=== PATIENT | male | born 1985 | race Caucasian/White ===

== ENCOUNTER 2016-05-28 05:44 | Inpatient (IN) | payer MEDICAID ==
[~2016-05-28] VITALS: Ht 170.2 cm; Wt 57.0 kg
[~2016-05-28 05:44] MED LIST: FER325 PO; GABA100C14 PO; INSU100C SC; LANT3I SC; LEVO500T10 PO; NOVO7030 SC
[2016-05-28 05:47] VITALS: Ht 170.2 cm; Wt 57.0 kg
[2016-05-28] MEDS ORDERED: SOD CHLORIDE 0.9% 1,000 ML IV STA (06:21)
[2016-05-28] MEDS ORDERED: morphine 4 MG/ML VIAL IV STA ×2 (06:21→08:04)
[2016-05-28] MEDS ORDERED: ONDANSETRON 4 MG INJ IV STA (06:21)
[2016-05-28] MEDS ORDERED: SOD CHLORIDE 0.9% 1,000 ML IV ONE (06:30)
[2016-05-28 06:42] LABS: INR 0.91; PROTIME 12.2 Sec (12.2-14.2)
[2016-05-28 06:43] LABS: ALBUMIN 4.5 g/dl (3.3-4.9); CHLORIDE 97 mmol/L (97-110)
[2016-05-28 06:44] LABS: POTASSIUM 4.3 mmol/L (3.5-5.1); SODIUM 139 mmol/L (135-144)
[2016-05-28 06:46] LABS: ALBUMIN/GLOBULIN RATIO 1.55; ALKALINE PHOSPHATASE 101 IU/L (42-121); ANION GAP 20 (8-16); ASPARTATE AMINO TRANSFERASE 21 IU/L (15-46); BASOPHIL # 0.1 10^3/ul (0.0-0.1); BASOPHILS % 0.4 % (0.0-2.0); BILIRUBIN,INDIRECT 0.2 mg/dl (0-1.1); BILIRUBIN,TOTAL 0.2 mg/dl (0.2-1.3); CARBON DIOXIDE 26 mmol/L (21-31); CREATININE 0.97 mg/dl (0.61-1.24); EOSINOPHILS # 0.5 10^3/ul (0.0-0.5); EOSINOPHILS % 3.2 % (0.0-7.0); HEMATOCRIT 35.4 % (42.0-52.0); LYMPHOCYTES # 2.5 10^3/ul (0.8-2.9); LYMPHOCYTES % 15.3 % (15.0-51.0); MEAN CORPUSCULAR HEMOGLOBIN 31.2 pg (29.0-33.0); MEAN CORPUSCULAR HGB CONC 33.8 g/dl (32.0-37.0); MEAN CORPUSCULAR VOLUME 92.3 fl (82.0-101.0); MEAN PLATELET VOLUME 9.2 fl (7.4-10.4); MONOCYTE # 0.9 10^3/ul (0.3-0.9); MONOCYTES % 5.6 % (0.0-11.0); NEUTROPHIL # 12.4 10^3/ul (1.6-7.5); NEUTROPHILS % 75.5 % (39.0-77.0); PLATELET COUNT 192 10^3/UL (140-440); RED BLOOD COUNT 3.84 10^6/ul (4.70-6.10); RED CELL DISTRIBUTION WIDTH 13.4 % (11.5-14.5); TOTAL PROTEIN 7.4 g/dl (6.1-8.1); UNCORRECTED WBC 16.5 10^3/ul (4.8-10.8); WHITE BLOOD COUNT 16.5 10^3/ul (4.8-10.8)
[2016-05-28 06:47] LABS: ALANINE AMINOTRANSFERASE 33 IU/L (13-69); BLOOD UREA NITROGEN 29 mg/dl (7-20); CALCIUM 9.8 mg/dl (8.4-10.2); GLUCOSE 379 mg/dl (70-220)
[2016-05-28 07:01] LABS: TROPONIN-I < 0.012 ng/ml (0.00-0.12)
[2016-05-28 07:07] LABS: CONDITION 1
--- NOTE | 2016-05-28 07:17 | RADRPT ---
PROCEDURE: CT of the abdomen and pelvis without contrast CLINICAL INDICATION: Abdominal Pain. TECHNIQUE: Spiral CT images through the abdomen and pelvis without the use of contrast. The admin istered radiation dose is CTDI 4.91 and DLP 296.54. One or more of the following dose reduction juan c hniques were used: automated exposure control, adjustment of the mA and/or kV according to patient s ize, or use of iterative reconstruction technique. COMPARISON: 02/02/[address] and 08/06/[address] FINDINGS: Lack of oral and intravenous contrast somewhat limits evaluation. The left lower lobe infiltrate seen previously has resolved. There is minimal slightly nodular patchy opacity in the right lower l obe, more conspicuous than on the prior. No pleural effusion is seen. The heart size appears within normal limits. Atherosclerotic calcification of the vasculature of the abdomen pelvis is seen. There is mild diffu se edema of the subcutaneous soft tissues. Noncontrast imaging of the liver, spleen, adrenals, kidn eys, and pancreas shows no gross abnormality. Evaluation of the bowel is limited by lack of oral co ntrast and paucity of intra-abdominal fat. The appendix is normal in appearance. The urinary bladd er is again noted to be distended and mildly thick-walled. The prostate is slightly enlarged. No g ross bowel obstruction or free air is seen. There is a small amount of free fluid in the pelvis, ho wever. IMPRESSION: Limited noncontrast study. Resolved left lower lobe infiltrate with new minimal slightly nodular ri ght lower lobe infiltrate. Distended urinary bladder with mild wall thickening again seen as well as enlarged prostate. No gross bowel obstruction or free air but mild pelvic free fluid. If symptoms persist, study with oral and IV contrast may be helpful if possible. RPTAT: [facility] Physician Karuna Date Time Electronically viewed and signed by Physician Karuna on 05/28/2016 07:17 LE/
--- NOTE | 2016-05-28 08:46 | ERA ---
ER Documentation Chief Complaint Date/Time DATE: 05/28/16 TIME: 08:43 Chief Complaint diffuse abd pain w/ vomiting and diarrhea x 2 days HPI 30-year-old man presents with diffuse severe abdominal pain and cramping, multiple episodes of clear nonbloody nonbilious emesis, and diarrhea. He states he has been feeling weak over the last 2-3 days and suspects he is dehydrated. He also states is at about 15 pound weight loss over the last 2-3 weeks. 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 Patient denies fevers or chills, no melena, no blood per rectum, no chest pain or shortness of breath. Patient denies recent antibiotic use. ROS All systems reviewed and are negative except as per history of present illness. Medications Home Meds Reported Medications Insulin Lispro (Humalog) 100 U/Ml Cartridge, 6 UNITS SC BEFORE MEALS, EA 08/06/15 Insulin Glargine* (Lantus*) 100 Unit/Ml Soln, 16 UNIT SC HS, EA 07/31/14 Discontinued Scripts Ferrous Sulfate* (Ferrous Sulfate*) 325 Mg Tabec, 325 MG PO BID for 30 Days, TAB Prov:MARIANA CARRASCO [employer] 02/03/16 Levofloxacin* (Levofloxacin*) 500 Mg Tablet, 500 MG PO DAILY for 7 Days, TAB Prov:MARIANA CARRASCO [employer]PER[employer] 02/03/16 Insulin Isophan/Regular (Humulin 70/30) 100 Units/Ml Susp, 6 UNIT SC PC MEALS for 30 Days, EA Prov:GLENDY CARLSON 12/31/15 Gabapentin* (Gabapentin*) 100 Mg Capsule, 100 MG PO TID, #90 CAP Prov:GLENDY CARLSON 12/31/15 Allergies Allergies: Coded Allergies: No Known Allergy (Verified , 05/28/16) PMhx/Soc 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, diabetes mellitus type 1, anemia, ALL post stem cell transplant History of Surgery: Yes (Bone marrow transplant, toe amputation, portacath- removed) Anesthesia Reaction: No Hx Neurological Disorder: No Hx Respiratory Disorders: No Hx Cardiac Disorders: No Hx Psychiatric Problems: No Hx Miscellaneous Medical Probl: Yes (Leukemia (ALL): remission s/p stem cell transplant, diabetes type 1) Hx Alcohol Use: No Hx Substance Use: No Hx Tobacco Use: No Smoking Status: Never smoker FmHx Family History: No diabetes Physical Exam Vitals Vital Signs Date Time Temp Pulse Resp B/P Pulse Ox O2 Delivery O2 Flow Rate FiO2 05/28/16 07:45 91 20 126/95 97 Room Air 05/28/16 05:47 97.6 113 20 131/79 100 Physical Exam GENERAL: Emaciated dehydrated male, moderate discomfort, afebrile HEENT: Dry mucous membranes, pink conjunctiva, no cervical spine tenderness or step-off deformities, no goiter, no jaundice or icterus, extraocular movements intact without pain. No submandibular induration, and no pharyngeal erythema NEURO: Alert and oriented 3, cranial nerves II through XII intact bilaterally, pupils equal round reactive to light, no focal deficits or facial asymmetry, sensation intact distally Strength 5/5 in upper and lower extremities bilaterally CARDIAC: Tachycardic and regular, no murmurs rubs or gallops LUNGS: Clear bilaterally no wheezing crackles or stridor ABDOMEN: Soft nontender, no guarding, no rigidity, no rebound, no psoas sign no obturator sign. Normoactive bowel sounds SKIN: Warm and dry to touch, no abrasions, contusions, or hematomas, no lacerations, no ecchymosis, no target lesions, and without ulcers EXTREMITIES: No clubbing cyanosis or edema, calves are bilaterally symmetrical, no Homans sign, no popliteal cord sign. Distal pulses equal and bilateral. Left pinky toe amputation. PSYCH: Normal affect without agitation or irritability Result Diagram: 05/28/16 0604 05/28/16 0604 Results 24 hrs Laboratory Tests Test 05/28/16 06:03 05/28/16 06:04 Bedside Glucose 368mg/dL Alanine Aminotransferase (ALT/SGPT) 33IU/L Albumin 4.5g/dl Albumin/Globulin Ratio 1.55 Alkaline Phosphatase 101IU/L Anion Gap 20 Aspartate Amino Transf (AST/SGOT) 21IU/L Basophils # 0.110^3/ul Basophils % 0.4% Blood Urea Nitrogen 29mg/dl Calcium Level 9.8mg/dl Carbon Dioxide Level 26mmol/L Chloride Level 97mmol/L Creatinine 0.97mg/dl Direct Bilirubin 0.00mg/dl Eosinophils # 0.510^3/ul Eosinophils % 3.2% Free Thyroxine 1.40ng/dl Globulin 2.90g/dl Glucose Level 379mg/dl Hematocrit 35.4% Hemoglobin 12.0g/dl INR International Normalized Ratio 0.91 Indirect Bilirubin 0.2mg/dl Lipase 102U/L Lymphocytes # 2.510^3/ul Lymphocytes % 15.3% Mean Corpuscular Hemoglobin 31.2pg Mean Corpuscular Hemoglobin Concent 33.8g/dl Mean Corpuscular Volume 92.3fl Mean Platelet Volume 9.2fl Monocytes # 0.910^3/ul Monocytes % 5.6% Neutrophils # 12.410^3/ul Neutrophils % 75.5% Nucleated Red Blood Cells # 0.010^3/ul Nucleated Red Blood Cells % 0.0/100WBC Platelet Count 35643^3/UL Potassium Level 4.3mmol/L Prothrombin Time 12.2Sec Prothrombin Time Ratio 1.0 Red Blood Count 3.8410^6/ul Red Cell Distribution Width 13.4% Sodium Level 139mmol/L Total Bilirubin 0.2mg/dl Total Protein 7.4g/dl Troponin I < 0.012ng/ml White Blood Count 16.510^3/ul Current Medications Medications (Trade) Dose Ordered Sig/Brianna Route PRN Reason Start Time Stop Time Status Last Admin Dose Admin Sodium Chloride (NS) 1,000 ml @ 1,000 mls/hr Q1H STAT IV 05/28/16 06:21 05/28/16 07:20 DC 05/28/16 06:35 Morphine Sulfate (morphine) 4 mg ONCE STAT IV 05/28/16 06:21 05/28/16 06:22 DC 05/28/16 06:34 Ondansetron HCl 4 mg 4 mg ONCE STAT IV 05/28/16 06:21 05/28/16 06:22 DC 05/28/16 06:35 Sodium Chloride (NS) 1,000 ml @ 1,000 mls/hr Q1H ONCE IV 05/28/16 06:30 05/28/16 07:29 DC 05/28/16 06:35 Morphine Sulfate (morphine) 4 mg ONCE STAT IV 05/28/16 08:04 05/28/16 08:05 DC 05/28/16 08:08 Procedures/[facility] IV line was established patient was placed on monitoring engineer rhythm strip revealed a sinus tachycardia at 110 bpm with upright P and T waves. Patient was afebrile. I administered 2 L normal saline intravenously for dehydration, morphine 4 mg IV 2, and Zofran 4 mg IV CBC revealed leukocytosis of 17, electrolytes revealed dehydration with a BUN/ creatinine of 29/1, blood sugar elevated at 379, liver function tests were normal, troponin was negative. CT scan of the abdomen and pelvis was performed revealing nodular infiltrate at the right lung base, no acute infectious or inflammatory intra-abdominal pathology was noted. Please refer to radiologist dictation for full report. Further medical management deferred to inpatient hospitalist team. Departure Diagnosis: Primary Impression: ALL (acute lymphoblastic leukemia) Qualified Code: C91.00 - Acute lymphoblastic leukemia (ALL) not having achieved remission Additional Impressions: Dehydration Weight loss Vomiting and diarrhea Intractable pain Condition: HARMONY Yang MD May 28, 2016 08:46
[2016-05-28 10:16] VITALS: TEMP 97.2
[2016-05-28 11:00] VITALS: BP 123/80; RESP 18
[2016-05-28] MEDS ORDERED: LORAZEPAM 2 MG INJ IV PRN (12:00)
[2016-05-28] MEDS ORDERED: morphine 2 MG INJ IV PRN (12:00)
[2016-05-28] MEDS ORDERED: MAGNESIUM HYDROXIDE 30ML CUP PO PRN (12:00)
[2016-05-28] MEDS ORDERED: DOCUSATE SODIUM 100 MG CAP PO PRN (12:00)
[2016-05-28] MEDS ORDERED: NACL 0.9% 3 ML SYG IV SCH (12:00)
[2016-05-28] MEDS ORDERED: ALBUTEROL/IPRATROPIUM (NEB) 3 ML AMP HHN PRN (12:00)
[2016-05-28] MEDS ORDERED: hydrALAzine 20 MG INJ IV PRN (12:00)
[2016-05-28] MEDS ORDERED: ONDANSETRON 4 MG INJ IV PRN ×2 (12:00→18:00)
[2016-05-28] MEDS ORDERED: NA PHOSPHATE/BIPHOS 133 ML ENEMA PR PRN (12:00)
[2016-05-28] MEDS ORDERED: NITROGLYCERIN (SL) 0.4 MG TAB SL PRN (12:00)
[2016-05-28] MEDS ORDERED: HYDROCODONE/APAP (5/325) TAB PO PRN (12:00)
[2016-05-28] MEDS ORDERED: ACETAMINOPHEN 325 MG TAB PO PRN (12:00)
[2016-05-28] MEDS: SOD CHLORIDE 0.9% 1,000 ML IV SCH ×3 (12:21→22:24)
[2016-05-28 12:30] VITALS: BP 125/75; PULSE 88; RESP 18
[2016-05-28] MEDS ORDERED: KETOROLAC 15 MG INJ IV STA (12:42)
[2016-05-28] MEDS: INSULIN ASPART [NOVOLOG] 3 ML PEN SC SCH ×4 (13:37→20:56)
[2016-05-28] MEDS ORDERED: TRIMETHOBENZAMIDE 100 MG/ML VIAL IM PRN (14:00)
[2016-05-28] MEDS ORDERED: DIPHENHYDRAMINE 25 MG CAP PO PRN (14:30)
[2016-05-28] MEDS ORDERED: KETOROLAC 15 MG INJ IV PRN (14:30)
--- NOTE | 2016-05-28 14:36 | RADRPT ---
PROCEDURE: XR Chest. CLINICAL INDICATION: chest pain TECHNIQUE: Single frontal view of the chest was obtained COMPARISON: 08/06/15 FINDINGS: The heart and mediastinum are within normal limits. There is no focal infiltrate. There is a cylindrical foreign body in the soft tissues of the right anterior chest. There is no pleural effusion or pneumothorax. RPTAT: AA IMPRESSION: Cylindrical foreign body in the soft tissues of the right anterior chest. This is related to the spenser or chest wall port. No focal infiltrate. .Gama Witt MD, MD Date Time Electronically viewed and signed by .Gama Witt MD, on 05/28/2016 14:35 .S/
--- NOTE | 2016-05-28 14:52 | HP ---
DATE OF ADMISSION: 05/28/2016 CHIEF COMPLAINT: This is a 30-year-old male with chief complaint of abdominal pain, nausea, vomitin g. HISTORY OF PRESENT ILLNESS: A 30-year-old male with past medical history of ALL with acute lymphobl astic leukemia, presently in remission status post stem cell transplant many years ago, followed up at [facility] for that; uncontrolled diabetes, unclear if type 1 or 2, anemia, prior pneumonia, pr ior admissions for DKA, who presents with nausea and diarrhea symptoms that began last night. He goodrich s also been having vomiting symptoms as well, nonbilious, nonbloody. He has also been having abdomi nal pain for the last 2 days as well. He says he has not been taking his subcutaneous insulin at [facility], he ran out for the last month. He denies any fevers or chills, no chest pain, no shortness of b reath, no productive cough, no headaches or dizziness or loss of consciousness. No dysuria, no camacho turia. When he came into the ER today, he was found with elevated blood sugars of 389 and his anion gap was slightly elevated, and he was given IV fluids and pain control medications in the ER. He s ays his hematology/oncology doctor is over at [facility], Dr. Kisha Tinajero, tool storage attendant, who sees the patient every 6 months now, as the patient is presently in remission for his ALL. PAST MEDICAL HISTORY: As above. ALLERGIES: NO KNOWN DRUG ALLERGIES. MEDICATIONS: 1. Lantus 16 units subcu at bedtime. 2. Humalog 6 units before meals, but again not taking these for at least the last 1 month. FAMILY HISTORY: Noncontributory. SOCIAL HISTORY: Smokes marijuana occasionally, but denies any IV drug abuse or alcohol or cigarette use. PAST SURGICAL HISTORY: Again, he has had a history of stem cell transplant in the past. PHYSICAL EXAMINATION: VITAL SIGNS: T-max 97.6, pulse 113/91, respirations 20, blood pressure 131 to 126 systolic over 79 to 95 diastolic, satting 100% on room air. GENERAL: The patient is lying in bed, appears in mild to moderate distress, slightly emaciated, but alert. HEENT: Positive dry mucous membranes, otherwise pupils equal, round, react to light. Extraocular m uscles intact. NECK: Supple, no thyromegaly. LUNGS: Clear to auscultation bilaterally. No wheezes. CARDIOVASCULAR: S1, S2 heard. No rubs or gallops. ABDOMEN: Mild tenderness to palpation in epigastric area, but no rebound or guarding. Normal bowel sounds. MUSCULOSKELETAL: No lower extremity edema bilaterally. NEUROLOGIC: No focal deficits. LABORATORIES: WBC 16.5, hemoglobin 12.0, hematocrit 35.4, platelets 192. Sodium 139, potassium 4.3 , chloride 97, CO2 26, BUN 29, creatinine 0.97, glucose 379, his UA is still pending. Coags are nor mal. IMAGING: He had a CT abdomen and pelvis performed today that shows distended urinary bladder with m ild wall thickening as well as enlarged prostate. Resolved left lower lobe infiltrate with new mini mal slightly nodular right lower lobe infiltrate, no bowel obstruction or free air, but mild pelvic free fluid. ASSESSMENT AND PLAN: 1. A 30-year-old male with abdominal pain, nausea, vomiting, possibly secondary to mild DKA plus de hydration. 2. Nausea, vomiting, abdominal pain. Again, the CT scan did not show any overt colitis. He does h ave elevated blood sugars and slightly elevated anion gap. He has had prior admissions for DKA, denisse l admit him to med/surg floor. We will get endocrinology consult, put him on aggressive IV fluid hy dration for now, just subcutaneous insulin unless sugars and gap worsen. Keep him n.p.o. Check TSH , A1c and lipid panel as well. 3. History of ALL, again, presently in remission. Continue to monitor for now, no present issues. Monitor CBC daily. 4. History of prior diabetes. Per records, it says he is type 1, although this is questionable. W e are going to get endocrinology consult again and treat #1 accordingly with fluids and insulin. Fo llow up endocrinology recommendations. 5. Prior history of anemia. His hemoglobin was 12.0, presently no signs of any bleeding. Continue to monitor for now. 6. Gastrointestinal prophylaxis, PPI and deep venous thrombosis prophylaxis, SCDs for now. Dictated By: WESTLEY ZHOU/JAMIL Conf#: [id number] DID#: [id number]
[2016-05-28] MEDS ORDERED: INSULIN ASPART [NOVOLOG] 3 ML PEN SC SCH (17:30)
--- NOTE | 2016-05-28 17:47 | CONS ---
Date/Time of Note Date/Time of Note DATE: 05/28/16 TIME: 17:40 Assessment/Plan Assessment/Plan Problems: (1) Weight loss Status: Chronic Comment: The cause of this is not entirely clear. He had a negative QuantiFERON gold study and does not appear to have active abnormalities of thyroid. I am curious about whether or not this may represent an undiagnosed case of adrenal insufficiency versus a significant gastroparesis autonomic neuropathy. If this is an autonomic neuropathy and be more likely as a result of the chemotherapy is on the diabetes given the timeframe (2) Vomiting and diarrhea Status: Chronic Comment: Continue observation and fluid replacement (3) Hyperglycemia Status: Chronic Comment: He has been off of his insulin therapy for 2 months. This strongly mitigates against type 1 diabetes as he should have been in the intensive care unit in 48 hours. For now we will try checking a C-peptide level on this gentleman as well as getting him on some oral agents. A significant social issues here he cannot afford his insulin which is why he has been off of it. We will try and come up with medications to assist. Consultation Date/Type/Reason Admit Date/Time May 28, 2016 at 08:43 Date of Consultation: May 28, 2016 Type of Consultation: Endocrinology Reason for Consultation Diabetes mellitus labeled as type I; intractable nausea and vomiting Referring Provider: WESTLEY GILES Hx of Present Illness 30-year-old right-handed single gentleman. At age 18 he was diagnosed with acute lymphoblastic leukemia and underwent multiple treatments. During treatment he was given steroids and developed diabetes. 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 He has had a QuantiFERON gold test performed roughly 18 months ago that was negative. He has been having some financial issues and has been off of insulin therapy entirely for a period of at least 2 months. He is coming to the hospital with intractable nausea and vomiting dehydration but not in DKA despite being off of all insulin therapy. Curiously he has lost a significant amount of weight going from a weight of 300 pounds down to 115 pounds. To the best of the patient's knowledge she has never had an evaluation for formal gastroparesis or for how well intact his cortisol axis is Constitutional: no complaints (Denies fever chills or sweats) Eyes: no complaints ENT: no complaints Respiratory: no complaints Cardiovascular: no complaints Gastrointestinal: nausea, pain, vomiting Genitourinary: no complaints Musculoskeletal: no complaints Skin: no complaints Neurologic: no complaints Past Medical History Acute lymphoblastic leukemia status post stem cell transplant 2011; anemia; diabetes mellitus; significant weight loss; status post left fifth toe amputation; anemia Past Surgical History Status post placement of a Port-A-Cath which was removed August 2014 Family History Significant Family History: no pertinent family hx Social History Alcohol Use: none Smoking Status: Never smoker Drug Use: none Exam/Review of Systems Vital Signs Vitals Vital Signs Date Time Temp Pulse Resp B/P Pulse Ox O2 Delivery O2 Flow Rate FiO2 05/28/16 11:00 97.6 104 18 123/80 99 05/28/16 10:16 Room Air Exam He is actually slightly more pigmented by skin tone and his parents or his sister Constitutional: alert, oriented Psych: nl mood/affect, no complaints Eyes: EOMI, nl conjunctiva, nl lids, nl sclera Respiratory: clear to auscultation, normal air movement Cardiovascular: nl pulses, regular rate and rhythm Gastrointestinal: nl liver, spleen, non-tender, soft Results Result Diagram: 05/28/16 0604 05/28/16 0604 Results 24 hrs Laboratory Tests Test 05/28/16 06:03 05/28/16 06:04 05/28/16 12:19 05/28/16 14:50 Bedside Glucose 368 H 280 H Alanine Aminotransferase (ALT/SGPT) 33 Albumin 4.5 Albumin/Globulin Ratio 1.55 Alkaline Phosphatase 101 Anion Gap 20 H Aspartate Amino Transf (AST/SGOT) 21 Basophils # 0.1 Basophils % 0.4 Blood Urea Nitrogen 29 H Calcium Level 9.8 Carbon Dioxide Level 26 Chloride Level 97 Creatinine 0.97 Direct Bilirubin 0.00 Eosinophils # 0.5 Eosinophils % 3.2 Free Thyroxine 1.40 Globulin 2.90 Glucose Level 379 H Hematocrit 35.4 #L Hemoglobin 12.0 #L INR International Normalized Ratio 0.91 Indirect Bilirubin 0.2 Lipase 102 Lymphocytes # 2.5 Lymphocytes % 15.3 Mean Corpuscular Hemoglobin 31.2 Mean Corpuscular Hemoglobin Concent 33.8 Mean Corpuscular Volume 92.3 Mean Platelet Volume 9.2 # Monocytes # 0.9 Monocytes % 5.6 Neutrophils # 12.4 H Neutrophils % 75.5 Nucleated Red Blood Cells # 0.0 Nucleated Red Blood Cells % 0.0 Platelet Count 192 # Potassium Level 4.3 Prothrombin Time 12.2 Prothrombin Time Ratio 1.0 Red Blood Count 3.84 #L Red Cell Distribution Width 13.4 Sodium Level 139 Total Bilirubin 0.2 Total Protein 7.4 Troponin I < 0.012 White Blood Count 16.5 #H Ethyl Alcohol Level < 10.0 Medications Medications Current Medications Acetaminophen (Tylenol Tab) 650 mg Q6H PRN PO PAIN LEVEL 1-3 OR FEVER; Start at 12:00 Acetaminophen/ Hydrocodone Bitart ([place] (5/325)) 1 tab Q6H PRN PO MODERATE PAIN LEVEL 4-6; Start 05/28/16 at 12:00 Docusate Sodium (Colace) 100 mg Q12H PRN PO CONSTIPATION; Start 05/28/16 at 12: 00 Magnesium Hydroxide (Milk Of Mag) 30 ml DAILY PRN PO CONSTIPATION; Start at 12:00 Sodium Biphosphate/ Sodium Phosphate (Fleet Enema) 133 ml DAILY PRN NV CONSTIPATION; Start 05/28/16 at 12:00 Pantoprazole (Protonix Iv) 40 mg DAILY@06 IV ; Start 05/29/16 at 06:00 Lorazepam 0.5 mg 0.5 mg Q6H PRN IV ANXIETY; Start 05/28/16 at 12:00 Sodium Chloride (NS) 1,000 ml @ 150 mls/hr Q6H40M IV Last administered on 05/28 12:21; Admin Dose 100 MLS/HR; Start 05/28/16 at 11:40 Hydralazine HCl (Apresoline) 10 mg Q6H PRN IV ELEVATED BLOOD PRESSURE; Start at 12:00 Nitroglycerin (Nitroglycerin (Sl Tab) 0.4 Mg) 1 tab Q5M PRN SL ANGINA; Start at 12:00 Insulin Aspart (Novolog Insulin Pen) NOVOLOG *MODERATE* ALGORI... Q4 SC Last administered on 05/28/16 13:37; Admin Dose 8 UNIT; Start 05/28/16 at 13:00 Insulin Glargine (Lantus) 16 unit HS SC ; Start 05/28/16 at 21:00 Trimethobenzamide HCl 200 mg 200 mg Q6H PRN IM NAUSEA AND/OR VOMITING; Start at 14:00 Levofloxacin/ Dextrose 150 ml @ 100 mls/hr Q24H IVPB ; Start 05/28/16 at 16:00 Ondansetron HCl/ Dextrose (Zofran Inj/D5W) 54 ml @ 216 mls/hr Q6H PRN IV NAUSEA AND/OR VOMITING; Start 05/28/16 at 14:00 Ketorolac Tromethamine (Toradol) 15 mg Q8H PRN IV PAIN; Start 05/28/16 at 14:30 ; Stop 05/31/16 at 14:29 Diphenhydramine HCl (Benadryl) 25 mg Q12H PRN PO ITCHING; Start 05/28/16 at 14: 30 Cosyntropin (Cortrosyn) 0.25 mg ONCE ONCE IV ; Start 05/28/16 at 20:05; Stop at 20:06 Hydromorphone HCl (Dilaudid) 1.5 mg Q4H PRN IV PAIN; Start 05/28/16 at 17:30 SARAH HYLTON MD May 28, 2016 17:46
[2016-05-28] MEDS ORDERED: GLUCOSE GEL 15 GRAM TUBE BUCCAL PRN (18:00)
[2016-05-28] MEDS ORDERED: GLUCOSE GEL 15 GRAM TUBE PO PRN ×2 (18:00)
[2016-05-28] MEDS ORDERED: DEXTROSE 50% 50 ML SYRINGE IV PRN ×2 (18:00)
[2016-05-28] MEDS: LINAGLIPTIN 5 MG TABLET PO SCH (18:00)
[2016-05-28] MEDS ORDERED: GLUCAGON 1 MG INJ IM PRN (18:00)
[2016-05-28] MEDS: HYDROmorphONE 2 MG/ML SYG IV PRN ×2 (18:03→22:26)
[2016-05-28] MEDS: LEVOFLOXACIN 750MG/D5W (PMX) 150 ML IVPB SCH (18:09)
[2016-05-28 20:00] VITALS: BP 112/66; PULSE 100; RESP 20
[2016-05-28] MEDS ORDERED: COSYNTROPIN 0.25 MG INJ IV ONE (20:05)
[2016-05-28] MEDS: INSULIN GLARGINE [LANtus] 3 ML PEN SC SCH (20:56)
[2016-05-28] MEDS ORDERED: INSULIN GLARGINE [LANtus] 3 ML PEN SC SCH (21:00)
[2016-05-29] MEDS: INSULIN ASPART [NOVOLOG] 3 ML PEN SC SCH ×10 (01:22→21:19)
[2016-05-29] MEDS: HYDROmorphONE 2 MG/ML SYG IV PRN ×4 (02:34→21:08)
[2016-05-29] MEDS: ONDANSETRON INJ 8 MG in DEXTROSE 5% 50 ML IV PRN ×2 (03:07→14:14)
[2016-05-29] MEDS: PANTOPRAZOLE 40 MG INJ IV SCH (05:14)
[2016-05-29] MEDS: SOD CHLORIDE 0.9% 1,000 ML IV SCH ×3 (05:19→16:51)
[2016-05-29 06:25] LABS: BASOPHILS % 0.2 % (0.0-2.0); EOSINOPHILS # 0.2 10^3/ul (0.0-0.5); EOSINOPHILS % 1.3 % (0.0-7.0); HEMATOCRIT 35.1 % (42.0-52.0); LYMPHOCYTES # 1.6 10^3/ul (0.8-2.9); LYMPHOCYTES % 13.2 % (15.0-51.0); MEAN CORPUSCULAR HEMOGLOBIN 31.5 pg (29.0-33.0); MEAN CORPUSCULAR HGB CONC 34.1 g/dl (32.0-37.0); MEAN CORPUSCULAR VOLUME 92.5 fl (82.0-101.0); MONOCYTE # 0.6 10^3/ul (0.3-0.9); MONOCYTES % 4.5 % (0.0-11.0); NEUTROPHIL # 9.9 10^3/ul (1.6-7.5); NEUTROPHILS % 80.8 % (39.0-77.0); PLATELET COUNT 182 10^3/UL (140-440); RED BLOOD COUNT 3.79 10^6/ul (4.70-6.10); RED CELL DISTRIBUTION WIDTH 13.3 % (11.5-14.5); UNCORRECTED WBC 12.3 10^3/ul (4.8-10.8); WHITE BLOOD COUNT 12.3 10^3/ul (4.8-10.8)
[2016-05-29 06:28] LABS: POTASSIUM 4.6 mmol/L (3.5-5.1)
[2016-05-29 06:29] LABS: CONDITION 1
[2016-05-29 06:30] LABS: CREATININE 0.65 mg/dl (0.61-1.24)
[2016-05-29 06:31] LABS: CALCIUM 8.9 mg/dl (8.4-10.2); PHOSPHORUS 3.4 mg/dl (2.5-4.9)
[2016-05-29 06:32] LABS: CHOL/HDL RATIO 2.3 RATIO; MAGNESIUM 1.7 mg/dl (1.7-2.5)
[2016-05-29 06:46] LABS: ADD UMIC YES; URINE BILIRUBIN (Dip) NEGATIVE (NEGATIVE); URINE BLOOD (Dip) NEGATIVE (NEGATIVE); URINE COLOR LT. YELLOW (YELLOW); URINE KETONES (Dip) 15 (NEGATIVE); URINE LEUKOCYTE ESTERASE (Dip) NEGATIVE (NEGATIVE); URINE NITRITE (Dip) NEGATIVE (NEGATIVE); URINE TOTAL PROTEIN (Dip) 1+ (NEGATIVE); URINE UROBILINOGEN (Dip) 0.2 E.U./dL (0.1-1.0)
[2016-05-29 06:54] LABS: THYROID STIMULATING HORMONE 2.12 MIU/L (0.465-4.680)
[2016-05-29 07:37] VITALS: BP 125/85; RESP 18
[2016-05-29 07:55] LABS: BACTERIA,URINE RARE; URINE RBCS 0-2 /HPF (0)
[2016-05-29] MEDS: LINAGLIPTIN 5 MG TABLET PO SCH (08:26)
--- NOTE | 2016-05-29 09:49 | CONS ---
Date/Time of Note Date/Time of Note DATE: 05/29/16 TIME: 09:45 Assessment/Plan Assessment/Plan Chief Complaint/Hosp Course 30-year-old right-handed single gentleman. At age 18 he was diagnosed with acute lymphoblastic leukemia and underwent multiple treatments. During treatment he was given steroids and developed diabetes. 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 He has had a QuantiFERON gold test performed roughly 18 months ago that was negative. He has been having some financial issues and has been off of insulin therapy entirely for a period of at least 2 months. He is coming to the hospital with intractable nausea and vomiting dehydration but not in DKA despite being off of all insulin therapy. Curiously he has lost a significant amount of weight going from a weight of 300 pounds down to 115 pounds. To the best of the patient's knowledge she has never had an evaluation for formal gastroparesis or for how well intact his cortisol axis is Problems: (1) History of acute lymphoblastic leukemia (ALL) in remission Status: Chronic Comment: This appears to remain in remission. Please note he is status post a stem cell transplantation therapeutic 4 years ago (2) Hyperglycemia Status: Chronic Comment: He is definitely diabetic as noted in my note yesterday I doubt that he is a type I given that he was off of insulin for more than a month and did not end up in the ICU in DKA which could have happened in 48 hours. In addition he has had a robust response to a DPP 4 drug in combination with very low-dose insulin. We probably can actually treat this minesh with oral agents as an outpatient. Please note I did not use metformin due to his having had so much weight loss and we do not have an answer to that one yet. Pending at this time are his nuclear medicine gastric emptying study; an evaluation for what on earth is going on with his urinary tree. His cortisol axis is fully intact (3) Weight loss Status: Chronic Comment: The etiology of this is unclear. (4) Vomiting and diarrhea Status: Chronic Comment: The etiology of this is unclear and being evaluated. Additional Assessment/Plan He should have other hormone systems checked Consultation Date/Type/Reason Admit Date/Time May 28, 2016 at 08:43 Initial Consult Date 05/28/16 Type of Consultation: Endocrinology Reason for Consultation Diabetes mellitus type 2; intractable episodic nausea and vomiting.; Possible prostate disease Referring Provider: WESTLEY GILES 24 HR Interval Summary Constitutional: no complaints (Denies fevers chills or sweats) Detailed Summary ENT: no complaints Respiratory: no complaints Cardiovascular: no complaints Gastrointestinal: no complaints (He reports specifically that he is doing better.) Genitourinary: no complaints (On careful questioning he is actually having some symptoms of prostatic obstruction and he has an AUA score as I calculated superficially of 8) Exam/Review of Systems Vital Signs Vitals Vital Signs Date Time Temp Pulse Resp B/P Pulse Ox O2 Delivery O2 Flow Rate FiO2 05/29/16 07:37 97.6 96 18 125/85 100 05/28/16 20:00 Room Air Intake and Output 05/28/16 05/28/16 05/29/16 15:00 23:00 07:00 Intake Total 1150 ml 1354 ml Output Total 800 ml 300 ml Balance 350 ml 1054 ml Exam Constitutional: alert, oriented Neck: non-tender, supple Respiratory: clear to auscultation, normal air movement Cardiovascular: nl pulses, regular rate and rhythm Gastrointestinal: nl liver, spleen, non-tender, soft Results Result Diagram: 05/29/16 0538 05/29/16 0530 Results 24 hrs Laboratory Tests Test 05/28/16 12:19 05/28/16 14:50 05/28/16 17:55 05/28/16 18:20 Bedside Glucose 280 H 166 Ethyl Alcohol Level < 10.0 Random Cortisol 20.5 Test 05/28/16 20:00 05/28/16 20:30 05/28/16 20:54 05/28/16 21:00 Random Cortisol 13.1 26.6 35.0 Bedside Glucose 113 Test 05/29/16 01:05 05/29/16 02:45 05/29/16 05:16 05/29/16 05:30 Bedside Glucose 246 H 136 Urine Bacteria RARE Urine Bilirubin NEGATIVE Urine Clarity CLEAR Urine Color LT. YELLOW Urine Epithelial Cells RARE Urine Glucose 0.5% H Urine Hemoglobin NEGATIVE Urine Ketones 15 Urine Leukocyte Esterase NEGATIVE Urine Microscopic RBC 0-2 Urine Microscopic WBC 0-2 Urine Nitrite NEGATIVE Urine Specific [place] >=1.030 H Urine Total Protein 1+ H Urine Urobilinogen 0.2 E.U./dL Urine pH 6.0 Anion Gap 20 H Blood Urea Nitrogen 22 H Calcium Level 8.9 Carbon Dioxide Level 22 Chloride Level 102 Cholesterol Level 128 Cholesterol/HDL Ratio 2.3 Creatinine 0.65 Glucose Level 153 # HDL Cholesterol 55 LDL Cholesterol, Calculated 54 Magnesium Level 1.7 Phosphorus Level 3.4 Potassium Level 4.6 Sodium Level 139 Thyroid Stimulating Hormone (TSH) 2.120 Triglycerides Level 93 Test 05/29/16 05:38 05/29/16 07:54 Basophils # 0.0 Basophils % 0.2 Eosinophils # 0.2 Eosinophils % 1.3 Hematocrit 35.1 L Hemoglobin 12.0 L Hemoglobin A1c Lymphocytes # 1.6 Lymphocytes % 13.2 L Mean Corpuscular Hemoglobin 31.5 Mean Corpuscular Hemoglobin Concent 34.1 Mean Corpuscular Volume 92.5 Mean Platelet Volume 9.0 Monocytes # 0.6 Monocytes % 4.5 Neutrophils # 9.9 H Neutrophils % 80.8 H Nucleated Red Blood Cells # 0.0 Nucleated Red Blood Cells % 0.0 Platelet Count 182 Red Blood Count 3.79 L Red Cell Distribution Width 13.3 White Blood Count 12.3 #H Bedside Glucose 137 Medications Medications Current Medications Acetaminophen (Tylenol Tab) 650 mg Q6H PRN PO PAIN LEVEL 1-3 OR FEVER; Start at 12:00 Acetaminophen/ Hydrocodone Bitart ([place] (5/325)) 1 tab Q6H PRN PO MODERATE PAIN LEVEL 4-6; Start 05/28/16 at 12:00 Docusate Sodium (Colace) 100 mg Q12H PRN PO CONSTIPATION; Start 05/28/16 at 12: 00 Magnesium Hydroxide (Milk Of Mag) 30 ml DAILY PRN PO CONSTIPATION; Start at 12:00 Sodium Biphosphate/ Sodium Phosphate (Fleet Enema) 133 ml DAILY PRN [place] CONSTIPATION; Start 05/28/16 at 12:00 Pantoprazole (Protonix Iv) 40 mg DAILY@06 IV Last administered on 05/29/16t 05: 14; Admin Dose 40 MG; Start 05/29/16 at 06:00 Lorazepam 0.5 mg 0.5 mg Q6H PRN IV ANXIETY; Start 05/28/16 at 12:00 Sodium Chloride (NS) 1,000 ml @ 150 mls/hr Q6H40M IV Last administered on 05/29 05:19; Admin Dose 150 MLS/HR; Start 05/28/16 at 11:40 Hydralazine HCl (Apresoline) 10 mg Q6H PRN IV ELEVATED BLOOD PRESSURE; Start at 12:00 Nitroglycerin (Nitroglycerin (Sl Tab) 0.4 Mg) 1 tab Q5M PRN SL ANGINA; Start at 12:00 Insulin Aspart (Novolog Insulin Pen) NOVOLOG *MODERATE* ALGORI... Q4 SC Last administered on 05/29/16 01:22; Admin Dose 6 UNIT; Start 05/28/16 at 13:00 Trimethobenzamide HCl 200 mg 200 mg Q6H PRN IM NAUSEA AND/OR VOMITING; Start at 14:00 Levofloxacin/ Dextrose 150 ml @ 100 mls/hr Q24H IVPB Last administered on 05/28 18:09; Admin Dose 100 MLS/HR; Start 05/28/16 at 16:00 Ondansetron HCl/ Dextrose (Zofran Inj/D5W) 54 ml @ 216 mls/hr Q6H PRN IV NAUSEA AND/OR VOMITING Last administered on 05/29/16 03:07; Admin Dose 216 MLS/ HR; Start 05/28/16 at 14:00 Ketorolac Tromethamine (Toradol) 15 mg Q8H PRN IV PAIN; Start 05/28/16 at 14:30 ; Stop 05/31/16 at 14:29 Diphenhydramine HCl (Benadryl) 25 mg Q12H PRN PO ITCHING; Start 05/28/16 at 14: 30 Hydromorphone HCl (Dilaudid) 1.5 mg Q4H PRN IV PAIN Last administered on 08:23; Admin Dose 1.5 MG; Start 05/28/16 at 17:30 Insulin Glargine (Lantus) 8 unit HS SC ; Start 05/28/16 at 21:00 Linagliptin (Tradjenta) 5 mg DAILY PO ; Start 05/28/16 at 18:00 Miscellaneous Information 1 ea NOTE XX ; Start 05/28/16 at 18:00 Glucose (Glutose) 15 gm Q15M PRN PO DECREASED GLUCOSE; Start 05/28/16 at 18:00 Glucose (Glutose) 22.5 gm Q15M PRN PO DECREASED GLUCOSE; Start 05/28/16 at 18: 00 Dextrose (D50w Syringe) 25 ml Q15M PRN IV DECREASED GLUCOSE; Start 05/28/16 at 18:00 Dextrose (D50w Syringe) 50 ml Q15M PRN IV DECREASED GLUCOSE; Start 05/28/16 at 18:00 Glucagon (Glucagen) 1 mg Q15M PRN IM DECREASED GLUCOSE; Start 05/28/16 at 18:00 Glucose (Glutose) 15 gm Q15M PRN BUCCAL DECREASED GLUCOSE; Start 05/28/16 at 18 :00 SARAH HYLTON MD May 29, 2016 09:49
--- NOTE | 2016-05-29 10:36 | PN ---
Date/Time of Note Date/Time of Note DATE: 05/29/16 TIME: 10:27 Assessment/Plan VTE Prophylaxis VTE Prophylaxis Intervention: SCD's Lines/Catheters IV Catheter Type (from Nrsg): Peripheral IV Assessment/Plan Chief Complaint/Hosp Course ASSESSMENT AND PLAN: 30-year-old male with abdominal pain, nausea, vomiting, uncontrolled DM. 1. Nausea, vomiting, abdominal pain - improved now - possibly sec to undiagnosed case of adrenal insufficiency versus a significant gastroparesis autonomic neuropathy - per endo. Again, the CT scan did not show any overt colitis. - per endocrinology consult will check nuclear medicine gastric emptying study - continue IV fluid hydration for now - f/u A1c (pending) 3. History of ALL - again, presently in remission. - Continue to monitor for now, no present issues. Monitor CBC daily. 4. History of diabetes - apparently during treatment for his ALL he was given steroids and developed diabetes. Per prior records, it says he is type 1, although this doubtful per Endocrine team - given that he was off of insulin for more than a month and did not end up in the ICU in DKA which could have happened in 48 hours. In addition he has had a robust response to a DPP 4 drug in combination with very low-dose insulin. FS improved now. - continue Trajendta, ISS, Lantus - f/u A1C and monitor sugars. 5. Prior history of anemia - H/H stable, presently no signs of any bleeding. - Continue to monitor for now. 6. Gastrointestinal prophylaxis, PPI and deep venous thrombosis prophylaxis, SCDs for now. Problems: Subjective 24 Hr Interval Summary Free Text/Dictation Pt with less abd pain now, sugars improved, seen by endo team as well, awaiting gastric nuclear emptying study today. Exam/Review of Systems Vital Signs Vitals Vital Signs Date Time Temp Pulse Resp B/P Pulse Ox O2 Delivery O2 Flow Rate FiO2 05/29/16 07:37 97.6 96 18 125/85 100 05/28/16 20:00 Room Air Intake and Output 05/28/16 05/28/16 05/29/16 15:00 23:00 07:00 Intake Total 1150 ml 1354 ml Output Total 800 ml 300 ml Balance 350 ml 1054 ml Exam GENERAL: The patient is lying in bed, less distress, slightly emaciated, alert. HEENT: less positive dry mucous membranes, otherwise pupils equal, round, react to light. Extraocular muscles intact. NECK: Supple, no thyromegaly. LUNGS: Clear to auscultation bilaterally. No wheezes. CARDIOVASCULAR: S1, S2 heard. No rubs or gallops. ABDOMEN: Mild tenderness to palpation in epigastric area, but no rebound or guarding. Normal bowel sounds. MUSCULOSKELETAL: No lower extremity edema bilaterally. NEUROLOGIC: No focal deficits. Results Result Diagram: 05/29/16 0538 05/29/16 0530 Results 24 hrs Laboratory Tests Test 05/28/16 12:19 05/28/16 14:50 05/28/16 17:55 05/28/16 18:20 Bedside Glucose 280 H 166 Ethyl Alcohol Level < 10.0 Random Cortisol 20.5 Test 05/28/16 20:00 05/28/16 20:30 05/28/16 20:54 05/28/16 21:00 Random Cortisol 13.1 26.6 35.0 Bedside Glucose 113 Test 05/29/16 01:05 05/29/16 02:45 05/29/16 05:16 05/29/16 05:30 Bedside Glucose 246 H 136 Urine Bacteria RARE Urine Bilirubin NEGATIVE Urine Clarity CLEAR Urine Color LT. YELLOW Urine Epithelial Cells RARE Urine Glucose 0.5% H Urine Hemoglobin NEGATIVE Urine Ketones 15 Urine Leukocyte Esterase NEGATIVE Urine Microscopic RBC 0-2 Urine Microscopic WBC 0-2 Urine Nitrite NEGATIVE Urine Specific [place] >=1.030 H Urine Total Protein 1+ H Urine Urobilinogen 0.2 E.U./dL Urine pH 6.0 Anion Gap 20 H Blood Urea Nitrogen 22 H Calcium Level 8.9 Carbon Dioxide Level 22 Chloride Level 102 Cholesterol Level 128 Cholesterol/HDL Ratio 2.3 Creatinine 0.65 Glucose Level 153 # HDL Cholesterol 55 LDL Cholesterol, Calculated 54 Magnesium Level 1.7 Phosphorus Level 3.4 Potassium Level 4.6 Sodium Level 139 Thyroid Stimulating Hormone (TSH) 2.120 Triglycerides Level 93 Test 05/29/16 05:38 05/29/16 07:54 Basophils # 0.0 Basophils % 0.2 Eosinophils # 0.2 Eosinophils % 1.3 Hematocrit 35.1 L Hemoglobin 12.0 L Hemoglobin A1c Lymphocytes # 1.6 Lymphocytes % 13.2 L Mean Corpuscular Hemoglobin 31.5 Mean Corpuscular Hemoglobin Concent 34.1 Mean Corpuscular Volume 92.5 Mean Platelet Volume 9.0 Monocytes # 0.6 Monocytes % 4.5 Neutrophils # 9.9 H Neutrophils % 80.8 H Nucleated Red Blood Cells # 0.0 Nucleated Red Blood Cells % 0.0 Platelet Count 182 Red Blood Count 3.79 L Red Cell Distribution Width 13.3 White Blood Count 12.3 #H Bedside Glucose 137 Medications Medications Current Medications Acetaminophen (Tylenol Tab) 650 mg Q6H PRN PO PAIN LEVEL 1-3 OR FEVER; Start at 12:00 Acetaminophen/ Hydrocodone Bitart ([place] (5/325)) 1 tab Q6H PRN PO MODERATE PAIN LEVEL 4-6; Start 05/28/16 at 12:00 Docusate Sodium (Colace) 100 mg Q12H PRN PO CONSTIPATION; Start 05/28/16 at 12: 00 Magnesium Hydroxide (Milk Of Mag) 30 ml DAILY PRN PO CONSTIPATION; Start at 12:00 Sodium Biphosphate/ Sodium Phosphate (Fleet Enema) 133 ml DAILY PRN [place] CONSTIPATION; Start 05/28/16 at 12:00 Pantoprazole (Protonix Iv) 40 mg DAILY@06 IV Last administered on 05/29/16 05: 14; Admin Dose 40 MG; Start 05/29/16 at 06:00 Lorazepam 0.5 mg 0.5 mg Q6H PRN IV ANXIETY; Start 05/28/16 at 12:00 Sodium Chloride (NS) 1,000 ml @ 150 mls/hr Q6H40M IV Last administered on 05/29 05:19; Admin Dose 150 MLS/HR; Start 05/28/16 at 11:40 Hydralazine HCl (Apresoline) 10 mg Q6H PRN IV ELEVATED BLOOD PRESSURE; Start at 12:00 Nitroglycerin (Nitroglycerin (Sl Tab) 0.4 Mg) 1 tab Q5M PRN SL ANGINA; Start at 12:00 Insulin Aspart (Novolog Insulin Pen) NOVOLOG *MODERATE* [place]I... Q4 SC Last administered on 05/29/16 01:22; Admin Dose 6 UNIT; Start 05/28/16 at 13:00 Trimethobenzamide HCl 200 mg 200 mg Q6H PRN IM NAUSEA AND/OR VOMITING; Start at 14:00 Levofloxacin/ Dextrose 150 ml @ 100 mls/hr Q24H IVPB Last administered on 05/28 18:09; Admin Dose 100 MLS/HR; Start 05/28/16 at 16:00 Ondansetron HCl/ Dextrose (Zofran Inj/D5W) 54 ml @ 216 mls/hr Q6H PRN IV NAUSEA AND/OR VOMITING Last administered on 05/29/16 03:07; Admin Dose 216 MLS/ HR; Start 05/28/16 at 14:00 Diphenhydramine HCl (Benadryl) 25 mg Q12H PRN PO ITCHING; Start 05/28/16 at 14: 30 Insulin Glargine (Lantus) 8 unit HS SC ; Start 05/28/16 at 21:00 Linagliptin (Tradjenta) 5 mg DAILY PO ; Start 05/28/16 at 18:00 Miscellaneous Information 1 ea NOTE XX ; Start 05/28/16 at 18:00 Glucose (Glutose) 15 gm Q15M PRN PO DECREASED GLUCOSE; Start 05/28/16 at 18:00 Glucose (Glutose) 22.5 gm Q15M PRN PO DECREASED GLUCOSE; Start 05/28/16 at 18: 00 Dextrose (D50w Syringe) 25 ml Q15M PRN IV DECREASED GLUCOSE; Start 05/28/16 at 18:00 Dextrose (D50w Syringe) 50 ml Q15M PRN IV DECREASED GLUCOSE; Start 05/28/16 at 18:00 Glucagon (Glucagen) 1 mg Q15M PRN IM DECREASED GLUCOSE; Start 05/28/16 at 18:00 Glucose (Glutose) 15 gm Q15M PRN BUCCAL DECREASED GLUCOSE; Start 05/28/16 at 18 :00 Hydromorphone HCl (Dilaudid) 0.5 mg Q4H PRN IV PAIN; Start 05/29/16 at 13:30 WESTLEY GILES May 29, 2016 10:36
--- NOTE | 2016-05-29 14:53 | RADRPT ---
PROCEDURE: Gastric emptying scan CLINICAL INDICATION: 30 -year-old patient with abdominal pain, nausea and vomiting. TECHNIQUE: Following the oral administration of 1.1 mCi of Tc-99m sulfur colloid, labeled to a nava id meal, gastric emptying study was obtained. COMPARISON: No prior studies. FINDINGS: The stomach is well visualized. The small intestines are identified. There is evidence of delayed gastric emptying rate from the start of the study with calculated T1/2 time of 171 minutes (normal range is 30 - 90 minutes). There is no evidence of increased activity in the chest to suggest the presence of gastroesophageal reflux. IMPRESSION: Delayed gastric emptying rate . RPTAT: HH .Alma Lee MD, Date Time Electronically viewed and signed by .Alma Lee MD, on 05/29/2016 14:53 .L/
[2016-05-29] MEDS: LEVOFLOXACIN 750MG/D5W (PMX) 150 ML IVPB SCH (16:51)
[2016-05-29] MEDS: INSULIN GLARGINE [LANtus] 3 ML PEN SC SCH (21:00)
[2016-05-29] MEDS: TAMSULOSIN (SR) 0.4 MG CAP PO SCH (21:07)
[2016-05-29 21:45] VITALS: BP 142/56; RESP 20
[2016-05-30] MEDS: HYDROmorphONE 2 MG/ML SYG IV PRN ×2 (01:50→06:10)
[2016-05-30] MEDS: SOD CHLORIDE 0.9% 1,000 ML IV SCH ×4 (02:41→23:29)
[2016-05-30] MEDS: PANTOPRAZOLE 40 MG INJ IV SCH (05:37)
[2016-05-30 06:42] LABS: BASOPHILS % 0.4 % (0.0-2.0); EOSINOPHILS # 0.2 10^3/ul (0.0-0.5); EOSINOPHILS % 1.9 % (0.0-7.0); HEMATOCRIT 31.2 % (42.0-52.0); HEMOGLOBIN 10.5 g/dl (14.0-18.0); LYMPHOCYTES # 1.7 10^3/ul (0.8-2.9); LYMPHOCYTES % 19.4 % (15.0-51.0); MEAN CORPUSCULAR HEMOGLOBIN 31.2 pg (29.0-33.0); MEAN CORPUSCULAR HGB CONC 33.7 g/dl (32.0-37.0); MEAN CORPUSCULAR VOLUME 92.6 fl (82.0-101.0); MEAN PLATELET VOLUME 8.8 fl (7.4-10.4); MONOCYTE # 0.6 10^3/ul (0.3-0.9); NEUTROPHIL # 6.3 10^3/ul (1.6-7.5); NEUTROPHILS % 71.3 % (39.0-77.0); PLATELET COUNT 177 10^3/UL (140-440); RED BLOOD COUNT 3.37 10^6/ul (4.70-6.10); RED CELL DISTRIBUTION WIDTH 13.3 % (11.5-14.5); UNCORRECTED WBC 8.9 10^3/ul (4.8-10.8); WHITE BLOOD COUNT 8.9 10^3/ul (4.8-10.8)
[2016-05-30 06:53] LABS: CONDITION 1
[2016-05-30 07:28] LABS: CREATININE 0.63 mg/dl (0.61-1.24)
[2016-05-30 07:29] LABS: CALCIUM 8.7 mg/dl (8.4-10.2)
[2016-05-30] MEDS: INSULIN ASPART [NOVOLOG] 3 ML PEN SC SCH ×8 (07:30→20:30)
[2016-05-30 07:34] LABS: POTASSIUM 4.3 mmol/L (3.5-5.1)
[2016-05-30 08:09] VITALS: BP 115/71; RESP 16
--- NOTE | 2016-05-30 09:53 | PN ---
Date/Time of Note Date/Time of Note DATE: 05/30/16 TIME: 09:50 Assessment/Plan VTE Prophylaxis VTE Prophylaxis Intervention: SCD's Lines/Catheters IV Catheter Type (from Nrs): Peripheral IV Urinary Cath still in place: No Assessment/Plan Chief Complaint/Hosp Course ASSESSMENT AND PLAN: 30-year-old male with abdominal pain, nausea, vomiting, uncontrolled DM. 1. Nausea, vomiting, abdominal pain - improved now - Gastric emptying study showed: Delayed gastric emptying rate. Again, the CT scan did not show any overt colitis. - will start PO Reglan QID - continue IV fluid hydration for now - f/u A1c (pending) 3. History of ALL - again, presently in remission. - Continue to monitor for now, no present issues. Monitor CBC daily. 4. History of diabetes - apparently during treatment for his ALL he was given steroids and developed diabetes. Per prior records, it says he is type 1, although this doubtful per Endocrine team - given that he was off of insulin for more than a month and did not end up in the ICU in DKA which could have happened in 48 hours. In addition he has had a robust response to a DPP 4 drug in combination with very low-dose insulin. FS improved now. - continue Trajendta, ISS, Lantus - f/u A1C and monitor sugars. 5. Prior history of anemia - H/H stable, presently no signs of any bleeding. - Continue to monitor for now. 6. Gastrointestinal prophylaxis, PPI and deep venous thrombosis prophylaxis, SCDs for now. 7. enlarged prostate - awaiting consult, continue Flomax for now, UO improved now after starting this med yesterday. Problems: Subjective 24 Hr Interval Summary Free Text/Dictation Pt states less abd pain/distension. Started on Flomax yesterday. Gastric emptying study performed yesterday as well. Exam/Review of Systems Vital Signs Vitals Vital Signs Date Time Temp Pulse Resp B/P Pulse Ox O2 Delivery O2 Flow Rate FiO2 05/30/16 08:09 98.3 98 16 115/71 98 05/28/16 20:00 Room Air Intake and Output 05/29/16 05/29/16 05/30/16 15:00 23:00 07:00 Intake Total 1354 ml 1150 ml Output Total 1000 ml Balance 1354 ml 150 ml Exam GENERAL: The patient is lying in bed, less distress, slightly emaciated, alert. HEENT: less positive dry mucous membranes, otherwise pupils equal, round, react to light. Extraocular muscles intact. NECK: Supple, no thyromegaly. LUNGS: Clear to auscultation bilaterally. No wheezes. CARDIOVASCULAR: S1, S2 heard. No rubs or gallops. ABDOMEN: less tender to palpation in epigastric area, but no rebound or guarding. Normal bowel sounds. MUSCULOSKELETAL: No lower extremity edema bilaterally. NEUROLOGIC: No focal deficits. Results Result Diagram: 05/30/1615 05/30/16 0515 Results 24 hrs Laboratory Tests Test 05/29/16 13:43 05/29/16 16:53 05/29/16 21:15 05/30/16 02:52 Bedside Glucose 165 142 192 164 Test 05/30/16 05:15 05/30/16 08:09 Anion Gap 15 Basophils # 0.0 Basophils % 0.4 Blood Urea Nitrogen 13 # Calcium Level 8.7 Carbon Dioxide Level 23 Chloride Level 103 Creatinine 0.63 Eosinophils # 0.2 Eosinophils % 1.9 Glucose Level 160 Hematocrit 31.2 L Hemoglobin 10.5 L Lymphocytes # 1.7 Lymphocytes % 19.4 Mean Corpuscular Hemoglobin 31.2 Mean Corpuscular Hemoglobin Concent 33.7 Mean Corpuscular Volume 92.6 Mean Platelet Volume 8.8 Monocytes # 0.6 Monocytes % 7.0 Neutrophils # 6.3 Neutrophils % 71.3 Nucleated Red Blood Cells # 0.0 Nucleated Red Blood Cells % 0.0 Platelet Count 177 Potassium Level 4.3 Red Blood Count 3.37 L Red Cell Distribution Width 13.3 Sodium Level 137 White Blood Count 8.9 # Bedside Glucose 160 Medications Medications Current Medications Acetaminophen (Tylenol Tab) 650 mg Q6H PRN PO PAIN LEVEL 1-3 OR FEVER; Start at 12:00 Docusate Sodium (Colace) 100 mg Q12H PRN PO CONSTIPATION; Start 05/28/16 at 12: 00 Magnesium Hydroxide (Milk Of Mag) 30 ml DAILY PRN PO CONSTIPATION; Start at 12:00 Sodium Biphosphate/ Sodium Phosphate (Fleet Enema) 133 ml DAILY PRN [place] CONSTIPATION; Start 05/28/16 at 12:00 Pantoprazole (Protonix Iv) 40 mg DAILY@06 IV Last administered on 05/30/16 05: 37; Admin Dose 40 MG; Start 05/29/16 at 06:00 Lorazepam 0.5 mg 0.5 mg Q6H PRN IV ANXIETY; Start 05/28/16 at 12:00 Sodium Chloride (NS) 1,000 ml @ 100 mls/hr Q10H IV Last administered on 02:41; Admin Dose 100 MLS/HR; Start 05/28/16 at 11:40 Hydralazine HCl (Apresoline) 10 mg Q6H PRN IV ELEVATED BLOOD PRESSURE; Start at 12:00 Nitroglycerin (Nitroglycerin (Sl Tab) 0.4 Mg) 1 tab Q5M PRN SL ANGINA; Start at 12:00 Trimethobenzamide HCl 200 mg 200 mg Q6H PRN IM NAUSEA AND/OR VOMITING; Start at 14:00 Levofloxacin/ Dextrose 150 ml @ 100 mls/hr Q24H IVPB Last administered on 05/29 16:51; Admin Dose 100 MLS/HR; Start 05/28/16 at 16:00 Ondansetron HCl/ Dextrose (Zofran Inj/D5W) 54 ml @ 216 mls/hr Q6H PRN IV NAUSEA AND/OR VOMITING Last administered on 05/29/16 14:14; Admin Dose 216 MLS/ HR; Start 05/28/16 at 14:00 Diphenhydramine HCl (Benadryl) 25 mg Q12H PRN PO ITCHING; Start 05/28/16 at 14: 30 Insulin Glargine (Lantus) 8 unit HS SC ; Start 05/28/16 at 21:00 Linagliptin (Tradjenta) 5 mg DAILY PO ; Start 05/28/16 at 18:00 Miscellaneous Information 1 ea NOTE XX ; Start 05/28/16 at 18:00 Glucose (Glutose) 15 gm Q15M PRN PO DECREASED GLUCOSE; Start 05/28/16 at 18:00 Glucose (Glutose) 22.5 gm Q15M PRN PO DECREASED GLUCOSE; Start 05/28/16 at 18: 00 Dextrose (D50w Syringe) 25 ml Q15M PRN IV DECREASED GLUCOSE; Start 05/28/16 at 18:00 Dextrose (D50w Syringe) 50 ml Q15M PRN IV DECREASED GLUCOSE; Start 05/28/16 at 18:00 Glucagon (Glucagen) 1 mg Q15M PRN IM DECREASED GLUCOSE; Start 05/28/16 at 18:00 Glucose (Glutose) 15 gm Q15M PRN BUCCAL DECREASED GLUCOSE; Start 05/28/16 at 18 :00 Tamsulosin HCl (Flomax) 0.4 mg HS PO Last administered on 05/29/16t 21:07; Admin Dose 0.4 MG; Start 05/29/16 at 21:00 Hydromorphone HCl (Dilaudid) 2 mg Q6H PRN PO PAIN LEVEL 6-10; Start 05/30/16 at 10:00 Metoclopramide HCl (Reglan) 10 mg Q6 PO ; Start 05/30/16 at 12:00 WESTLEY GILES May 30, 2016 09:53
[2016-05-30] MEDS: LINAGLIPTIN 5 MG TABLET PO SCH (10:17)
[2016-05-30] MEDS: HYDROmorphONE 2 MG TAB PO PRN ×2 (11:55→20:31)
[2016-05-30] MEDS: METOCLOPRAMIDE 10 MG TAB PO SCH ×2 (12:46→17:30)
--- NOTE | 2016-05-30 15:18 | PN ---
Date/Time of Note Date/Time of Note DATE: 05/30/16 TIME: 15:14 Assessment/Plan VTE Prophylaxis VTE Prophylaxis Intervention: ambulation Lines/Catheters IV Catheter Type (from Nrsg): Peripheral IV Urinary Cath still in place: No Subjective 24 Hr Interval Summary Free Text/Dictation feels better, eating and holding down food, not much pain bs 100 last, voiding well without further evidence of retention alert, thin man lungs clear heart rate is regular abd flat, n bladder not palp, ext nl Exam/Review of Systems Vital Signs Vitals Vital Signs Date Time Temp Pulse Resp B/P Pulse Ox O2 Delivery O2 Flow Rate FiO2 05/30/16 08:09 98.3 98 16 115/71 98 05/28/16 20:00 Room Air Intake and Output 05/29/16 05/29/16 05/30/16 15:00 23:00 07:00 Intake Total 1354 ml 1150 ml Output Total 1000 ml Balance 1354 ml 150 ml Results Result Diagram: 05/30/16 0515 05/30/16 0515 Results 24 hrs Laboratory Tests Test 05/29/16 16:53 05/29/16 21:15 05/30/16 02:52 05/30/16 05:15 Bedside Glucose 142 192 164 Anion Gap 15 Basophils # 0.0 Basophils % 0.4 Blood Urea Nitrogen 13 # Calcium Level 8.7 Carbon Dioxide Level 23 Chloride Level 103 Creatinine 0.63 Eosinophils # 0.2 Eosinophils % 1.9 Glucose Level 160 Hematocrit 31.2 L Hemoglobin 10.5 L Lymphocytes # 1.7 Lymphocytes % 19.4 Mean Corpuscular Hemoglobin 31.2 Mean Corpuscular Hemoglobin Concent 33.7 Mean Corpuscular Volume 92.6 Mean Platelet Volume 8.8 Monocytes # 0.6 Monocytes % 7.0 Neutrophils # 6.3 Neutrophils % 71.3 Nucleated Red Blood Cells # 0.0 Nucleated Red Blood Cells % 0.0 Platelet Count 177 Potassium Level 4.3 Red Blood Count 3.37 L Red Cell Distribution Width 13.3 Sodium Level 137 White Blood Count 8.9 # Test 05/30/16 08:09 05/30/16 10:12 05/30/16 12:23 Bedside Glucose 160 151 100 Medications Medications Current Medications Acetaminophen (Tylenol Tab) 650 mg Q6H PRN PO PAIN LEVEL 1-3 OR FEVER; Start at 12:00 Docusate Sodium (Colace) 100 mg Q12H PRN PO CONSTIPATION; Start 05/28/16 at 12: 00 Magnesium Hydroxide (Milk Of Mag) 30 ml DAILY PRN PO CONSTIPATION; Start at 12:00 Sodium Biphosphate/ Sodium Phosphate (Fleet Enema) 133 ml DAILY PRN [place] CONSTIPATION; Start 05/28/16 at 12:00 Pantoprazole (Protonix Iv) 40 mg DAILY@06 IV Last administered on 05/30/16 05: 37; Admin Dose 40 MG; Start 05/29/16 at 06:00 Lorazepam 0.5 mg 0.5 mg Q6H PRN IV ANXIETY; Start 05/28/16 at 12:00 Sodium Chloride (NS) 1,000 ml @ 100 mls/hr Q10H IV Last administered on 13:00; Admin Dose 100 MLS/HR; Start 05/28/16 at 11:40 Hydralazine HCl (Apresoline) 10 mg Q6H PRN IV ELEVATED BLOOD PRESSURE; Start at 12:00 Nitroglycerin (Nitroglycerin (Sl Tab) 0.4 Mg) 1 tab Q5M PRN SL ANGINA; Start at 12:00 Trimethobenzamide HCl 200 mg 200 mg Q6H PRN IM NAUSEA AND/OR VOMITING; Start at 14:00 Levofloxacin/ Dextrose 150 ml @ 100 mls/hr Q24H IVPB Last administered on 05/29 16:51; Admin Dose 100 MLS/HR; Start 05/28/16 at 16:00 Ondansetron HCl/ Dextrose (Zofran Inj/D5W) 54 ml @ 216 mls/hr Q6H PRN IV NAUSEA AND/OR VOMITING Last administered on 05/29/16 14:14; Admin Dose 216 MLS/ HR; Start 05/28/16 at 14:00 Diphenhydramine HCl (Benadryl) 25 mg Q12H PRN PO ITCHING; Start 05/28/16 at 14: 30 Insulin Glargine (Lantus) 8 unit HS SC ; Start 05/28/16 at 21:00 Linagliptin (Tradjenta) 5 mg DAILY PO Last administered on 05/30/16 10:17; Admin Dose 5 MG; Start 05/28/16 at 18:00 Miscellaneous Information 1 ea NOTE XX ; Start 05/28/16 at 18:00 Glucose (Glutose) 15 gm Q15M PRN PO DECREASED GLUCOSE; Start 05/28/16 at 18:00 Glucose (Glutose) 22.5 gm Q15M PRN PO DECREASED GLUCOSE; Start 05/28/16 at 18: 00 Dextrose (D50w Syringe) 25 ml Q15M PRN IV DECREASED GLUCOSE; Start 05/28/16 at 18:00 Dextrose (D50w Syringe) 50 ml Q15M PRN IV DECREASED GLUCOSE; Start 05/28/16 at 18:00 Glucagon (Glucagen) 1 mg Q15M PRN IM DECREASED GLUCOSE; Start 05/28/16 at 18:00 Glucose (Glutose) 15 gm Q15M PRN BUCCAL DECREASED GLUCOSE; Start 05/28/16 at 18 :00 Tamsulosin HCl (Flomax) 0.4 mg HS PO Last administered on 05/29/16 21:07; Admin Dose 0.4 MG; Start 05/29/16 at 21:00 Hydromorphone HCl (Dilaudid) 2 mg Q6H PRN PO PAIN LEVEL 6-10 Last administered on 05/30/16 11:55; Admin Dose 2 MG; Start 05/30/16 at 10:00 Metoclopramide HCl (Reglan) 10 mg Q6 PO Last administered on 05/30/16 12:46; Admin Dose 10 MG; Start 05/30/16 at 12:00 TAYLER STEWART MD May 30, 2016 15:18
[2016-05-30] MEDS: LEVOFLOXACIN 750MG/D5W (PMX) 150 ML IVPB SCH (16:16)
[2016-05-30 20:00] VITALS: BP 125/77; PULSE 118; RESP 16
[2016-05-30] MEDS: TAMSULOSIN (SR) 0.4 MG CAP PO SCH (20:30)
[2016-05-31] MEDS: SOD CHLORIDE 0.9% 1,000 ML IV SCH ×2 (00:21→09:29)
[2016-05-31] MEDS: METOCLOPRAMIDE 10 MG TAB PO SCH ×2 (00:21→06:18)
[2016-05-31] MEDS: HYDROmorphONE 2 MG TAB PO PRN (04:42)
[2016-05-31] MEDS: PANTOPRAZOLE 40 MG INJ IV SCH (06:18)
[2016-05-31 06:29] LABS: BASOPHILS % 0.3 % (0.0-2.0); EOSINOPHILS # 0.1 10^3/ul (0.0-0.5); EOSINOPHILS % 1.1 % (0.0-7.0); HEMOGLOBIN 10.2 g/dl (14.0-18.0); LYMPHOCYTES # 1.8 10^3/ul (0.8-2.9); LYMPHOCYTES % 21.2 % (15.0-51.0); MEAN CORPUSCULAR HEMOGLOBIN 31.3 pg (29.0-33.0); MEAN CORPUSCULAR VOLUME 92.1 fl (82.0-101.0); MEAN PLATELET VOLUME 8.6 fl (7.4-10.4); MONOCYTE # 0.6 10^3/ul (0.3-0.9); MONOCYTES % 7.4 % (0.0-11.0); NEUTROPHIL # 5.9 10^3/ul (1.6-7.5); PLATELET COUNT 184 10^3/UL (140-440); RED BLOOD COUNT 3.26 10^6/ul (4.70-6.10); RED CELL DISTRIBUTION WIDTH 13.4 % (11.5-14.5); UNCORRECTED WBC 8.4 10^3/ul (4.8-10.8); WHITE BLOOD COUNT 8.4 10^3/ul (4.8-10.8)
[2016-05-31 06:34] LABS: CONDITION 1
[2016-05-31 07:04] LABS: POTASSIUM 3.8 mmol/L (3.5-5.1)
[2016-05-31 07:06] LABS: CREATININE 0.72 mg/dl (0.61-1.24)
[2016-05-31 07:07] LABS: CALCIUM 8.2 mg/dl (8.4-10.2)
[2016-05-31 08:00] VITALS: BP 117/72; PULSE 105; RESP 18
[2016-05-31] MEDS: LINAGLIPTIN 5 MG TABLET PO SCH (08:49)
[2016-05-31] MEDS ORDERED: INSULIN GLARGINE [LANtus] 3 ML PEN SC SCH (09:00)
[2016-05-31] MEDS ORDERED: INFLUENZA VIRUS VACCINE 0.5 ML SYG IM* ONE (09:00)
[2016-05-31] MEDS: INSULIN ASPART [NOVOLOG] 3 ML PEN SC SCH ×2 (09:28)
--- NOTE | 2016-05-31 09:30 | PDOCDIS ---
Discharge Instructions CONDITION Patient Condition: Stable HOME CARE INSTRUCTIONS: Special Diet: Carb Controlled ACTIVITY: Activity Restrictions: Slowly Increase Activity FOLLOW UP/APPOINTMENTS Appointments Please take your medications as prescribed. See your doctor in the clinic in 1 week. WESTLEY GILES May 31, 2016 09:30
[2016-05-31] MEDS ORDERED: METO10TA96 PO (09:35)
[2016-05-31] MEDS ORDERED: LANT3I SC (09:35)
[2016-05-31] MEDS ORDERED: TAMS-14 PO (09:35)
[2016-05-31] MEDS ORDERED: ONDA4TAB8 PO (09:35)
[2016-05-31] MEDS ORDERED: LINA5TAB PO (09:35)
[2016-05-31] MEDS ORDERED: HYDR2TAB15 PO (09:40)
--- NOTE | 2016-05-31 10:54 | DS ---
DATE OF ADMISSION: 05/28/2016 DATE OF DISCHARGE: 05/31/2016 A 30-year-old male who was admitted on 05/28/2016, being discharged on 05/31/2016. HOSPITAL COURSE: The patient came in with abdominal pain, nausea, vomiting. He was found with elev ated blood sugars and was admitted. He was determined most likely to have a type 2 diabetes after b eing evaluated by endocrinology team. A hemoglobin A1c was ordered, it was still pending by the gray e of discharge. It was thought to be uncontrolled, given his past hemoglobin A1cs, and he had not b een taking his insulin last 2 months prior to admission. In any event, he was admitted, given IV fl uids, and antiemetic medicines as well. Again, seen by endocrinology team and also urology team. H is sugars improved. He appeared to have a robust response to a DDP-4 drug in combination with very low-dose insulin and that medicine was Tradjenta, which he was on as well. He was also given short acting insulins as well and Lantus and sliding scale. In any event, he had a nuclear medicine gastr ic emptying study performed that showed delayed gastric emptying and this was determined that his na usea and vomiting symptoms was thought to be secondary to most likely diabetic gastroparesis, so he was started on Reglan for that. He was also found with an enlarged prostate on imaging studies and seen by urology team and started on Flomax, which helped improve his urinary output. Over the cours e of his hospital stay, again, his sugars improved, his abdominal pain, nausea and vomiting symptoms improved. He was able to ambulate and tolerate a p.o. diet and his urinary status improved as well . He will be discharged home today in improved condition. He will be sent with Dilaudid 2 mg p.o. q. 8h. p.r.n. for a 1 week supply and Lantus 8 units subq q.a.m. Tradjenta 5 mg daily, Reglan 5 mg q. 6 h, and Flomax 0.4 mg at bedtime. We will also give him Lancet test strips and diabetic needle s so he can continue to monitor his sugars. He will follow up with endocrinology team and urology ame villalobos in the clinic as an outpatient in the next 1 week. FINAL DIAGNOSES: 1. Abdominal pain, nausea, vomiting, most likely secondary to combination of elevated blood sugars and diabetic gastroparesis, now on Reglan. 2. Most likely type 2 diabetes with prior hemoglobin A1c over 10. 3. Enlarged prostate, improving on Flomax. 4. History of ALL acute lymphoblastic leukemia, presently in remission, followed up as an outpatie nt at [facility]. 5. Prior history of anemia with hemoglobin stable. Time spent discharging patient 50 minutes. Dictated By: WESTLEY MASON Conf#: [id number] DID#: [id number]
[2016-06-03 02:26] LABS: FREE TESTOSTERONE 28.7 pg/mL (35.0-155.0)
== END 2016-05-31 11:41 | disposition home or self-care (01) | DRG 74 ==
LOC: E/R 05:44 → MS2 08:43
PROVIDERS: ADMIT Hospitalist; ATTEND Hospitalist
DX: E11.43 Type 2 diabetes mellitus with diabetic autonomic (poly)neuropathy (principal); C91.01 Acute lymphoblastic leukemia, in remission; K31.84 Gastroparesis; E86.0 Dehydration; E11.65 Type 2 diabetes mellitus with hyperglycemia; R63.4 Abnormal weight loss; R10.9 Unspecified abdominal pain; N40.0 Benign prostatic hyperplasia without lower urinary tract symptoms; Z79.4 Long term (current) use of insulin; Z86.79 Personal history of other diseases of the circulatory system
CPT/HCPCS: 36415; 71010; 74176; 78264; 80048; 80053; 80061; 80306; 80307; 81001; 81003; 82533; 82962; 83001; 83036; 83690; 83735; 84100; 84146; 84403; 84439; 84443; 84484; 84681; 85025; 85610; 87040; 87086; 90686; 96374; 96375; 96376; A9541; C9113; J1170; J1815; J1885; J1956; J2270; J2405; J7030

== ENCOUNTER 2016-08-24 09:12 | Emergency (ER) | payer MEDICAID ==
[~2016-08-24] VITALS: Ht 180.3 cm; Wt 56.0 kg
[~2016-08-24 09:12] MED LIST changes: -FER325 PO; -GABA100C14 PO; +HYDR2TAB15 PO; -INSU100C SC; -LEVO500T10 PO; +LINA5TAB PO; +METO10TA96 PO; -NOVO7030 SC; +TAMS-14 PO
[2016-08-24 09:15] VITALS: Ht 180.3 cm; Wt 56.0 kg
[2016-08-24] MEDS ORDERED: SOD CHLORIDE 0.9% 2,000 ML IV STA (10:16)
[2016-08-24] MEDS ORDERED: ONDANSETRON 4 MG INJ IV STA (10:16)
[2016-08-24] MEDS ORDERED: morphine 4 MG/ML VIAL IV STA ×2 (10:16→12:21)
--- NOTE | 2016-08-24 10:20 | ERA ---
ER Documentation Chief Complaint Date/Time DATE: 08/24/16 TIME: 10:18 Chief Complaint "body aches and chills for past day, history of stem cell transplant" HPI Patient is a 31-year-old male who presents with sudden onset, moderate, diffuse body aches associated with chills for 1 day. Patient denies vomiting, diarrhea , cough, shortness of breath. He complains of perineal pain. He denies fever. Patient denies current use of steroids or immunosuppressants. ROS All systems reviewed and are negative except as per history of present illness. Medications Home Meds Active Scripts Gabapentin* (Gabapentin*) 100 Mg Capsule, 100 MG PO TID, #42 CAP Prov:RONEL BENDER MD 08/24/16 Reported Medications Insulin Lispro (Humalog) 100 Unit/1 Ml Cartridge, 0 SQ SLIDING SCALES WITH MEALS 08/24/16 Insulin Glargine* (Lantus*) 100 Unit/Ml Soln, 15 UNIT SC QAM, #1 VIAL 08/24/16 Discontinued Scripts Hydromorphone Hcl* (Dilaudid*) 2 Mg Tablet, 2 MG PO Q8H Y for PAIN LEVEL 6-10, # 10 TAB Prov:RAHIWESTLEY S. 05/31/16 Tamsulosin Hcl* (Flomax*) 0.4 Mg Cap.er.24h, 0.4 MG PO HS, #30 CAP 5 Refills Prov:RAHI,WESTLEY S. 05/31/16 Metoclopramide Hcl* (Metoclopramide Hcl*) 10 Mg Tablet, 5 MG PO Q6, #120 TAB 4 Refills Prov:RAHI,WESTLEY S. 05/31/16 Linagliptin (TRADJENTA) 5 Mg Tablet, 5 MG PO DAILY, #30 TAB 5 Refills Prov:RAHI,WESTLEY S. 05/31/16 Insulin Glargine* (Lantus*) 100 Unit/Ml Soln, 8 UNIT SC AM, #30 4 Refills Prov:RAHI,WESTLEY S. 05/31/16 Allergies Allergies: Coded Allergies: morphine (Verified Adverse Reaction, Severe, redness/itchiness, 08/24/16) PMhx/Soc Past medical history: Leukemia treated with stem cell transplant, diabetes mellitus on insulin Past surgical history: Denies Social history: Uses medical marijuana, no alcohol or illicit drugs. No tobacco History of Surgery: Yes (right portacath placement and removal; left 5th toe amputation) Anesthesia Reaction: No Hx Neurological Disorder: Yes (migraines ) Hx Respiratory Disorders: No Hx Cardiac Disorders: Yes (tachycardia ) Hx Psychiatric Problems: No Hx Miscellaneous Medical Probl: Yes (shingles ) Hx Alcohol Use: No Hx Substance Use: No Hx Tobacco Use: No Smoking Status: Unknown if ever smoked FmHx Family History: No coronary disease, No diabetes Physical Exam Vitals Vital Signs Date Time Temp Pulse Resp B/P Pulse Ox O2 Delivery O2 Flow Rate FiO2 08/24/16 14:04 105 20 116/82 100 Room Air 08/24/16 12:06 98.2 102 20 103/70 96 Room Air 08/24/16 09:15 97.8 120 18 109/71 98 Physical Exam Const: Alert, in mild distress Head: Atraumatic Eyes: Normal Conjunctiva, no pallor, no icterus ENT: Normal External Ears, Nose and Mouth. Dry mucous membranes Neck: Full range of motion..~ No meningismus. Resp: Clear to auscultation bilaterally, no wheezes, no rales Cardio: Tachycardia, regular rhythm, no murmurs Abd: Soft, non tender, non distended. Normal bowel sounds Skin: No petechiae or rashes Back: No midline or flank tenderness : No scrotal or perineal erythema, induration or crepitus. No testicular tenderness. Ext: No cyanosis, or edema Neur: Awake and alert, cranial nerves II through XII intact bilaterally, strength and sensation full in 4 extremities per Psych: Normal Mood and Affect Result Diagram: 08/24/16 1015 08/24/16 1015 Results 24 hrs Laboratory Tests Test 08/24/16 10:15 08/24/16 12:35 08/24/16 13:57 08/24/16 15:00 White Blood Count 14.210^3/ul Red Blood Count 3.8010^6/ul Hemoglobin 11.5g/dl Hematocrit 35.4% Mean Corpuscular Volume 93.2fl Mean Corpuscular Hemoglobin 30.3pg Mean Corpuscular Hemoglobin Concent 32.5g/dl Red Cell Distribution Width 12.4% Platelet Count 03795^3/UL Mean Platelet Volume 11.1fl Neutrophils % 84.1% Lymphocytes % 6.7% Monocytes % 6.7% Eosinophils % 2.0% Basophils % 0.1% Nucleated Red Blood Cells % 0.0/100WBC Neutrophils # 12.010^3/ul Lymphocytes # 1.010^3/ul Monocytes # 1.010^3/ul Eosinophils # 0.310^3/ul Basophils # 0.010^3/ul Nucleated Red Blood Cells # 0.010^3/ul Prothrombin Time 13.7Sec Prothrombin Time Ratio 1.1 INR International Normalized Ratio 1.05 Activated Partial Thromboplast Time 30.4Sec Sodium Level 132mmol/L Potassium Level 4.7mmol/L Chloride Level 98mmol/L Carbon Dioxide Level 27mmol/L Anion Gap 12 Blood Urea Nitrogen 30mg/dl Creatinine 0.97mg/dl Glucose Level 454mg/dl Lactic Acid Level 1.0mmol/L Calcium Level 9.4mg/dl Total Bilirubin 0.2mg/dl Direct Bilirubin 0.00mg/dl Indirect Bilirubin 0.2mg/dl Aspartate Amino Transf (AST/SGOT) 20IU/L Alanine Aminotransferase (ALT/SGPT) 36IU/L Alkaline Phosphatase 87IU/L Creatine Kinase 106IU/L Total Protein 6.3g/dl Albumin 3.9g/dl Globulin 2.40g/dl Albumin/Globulin Ratio 1.62 Lipase 178U/L Bedside Glucose 359mg/dL 80mg/dL Urine Color LT. YELLOW Urine Clarity CLEAR Urine pH 5.5 Urine Specific [place] 1.010 Urine Ketones NEGATIVE Urine Nitrite NEGATIVE Urine Bilirubin NEGATIVE Urine Urobilinogen 0.2 E.U./dL Urine Leukocyte Esterase NEGATIVE Urine Microscopic RBC 5-10/HPF Urine Microscopic WBC 5-10/HPF Urine Hemoglobin TRACE Urine Glucose >=1000% Urine Total Protein 1+ Current Medications Medications (Trade) Dose Ordered Sig/Brianna Route PRN Reason Start Time Stop Time Status Last Admin Dose Admin Sodium Chloride (NS) 2,000 ml @ 1,000 mls/hr Q2H STAT IV 08/24/16 10:16 08/24/16 12:15 DC 08/24/16 10:53 Morphine Sulfate (morphine) 4 mg ONCE STAT IV 08/24/16 10:16 08/24/16 10:26 DC 08/24/16 10:54 Ondansetron HCl (Zofran Inj) 4 mg ONCE STAT IV 08/24/16 10:16 08/24/16 10:19 DC 08/24/16 10:53 Insulin Human Lispro (Humalog) 10 unit ONCE ONCE SC 08/24/16 12:00 08/24/16 12:01 DC 08/24/16 11:54 Morphine Sulfate (morphine) 4 mg ONCE STAT IV 08/24/16 12:21 08/24/16 12:26 DC 08/24/16 12:38 Diphenhydramine HCl (Benadryl) 25 mg ONCE ONCE IV 08/24/16 15:00 08/24/16 15:01 DC 08/24/16 15:29 Procedures/MDM EKG read by me: Time 1025, rate 119 Rhythm: Sinus tachycardia [place]: Rightward axis Intervals: Right bundle branch block and left posterior fascicular block ST-T waves: no ischemic changes Ectopy: No Q-waves: No Impression: Tachycardia with bifascicular block, no evidence of ischemia MDM: Patient is a 31-year-old male with insulin-dependent diabetes who presents to the ER with diffuse body pain. Complains both of muscle pain and also hyperesthesia with burning sensation with brushing of the skin. He is found to have hyperglycemia, but no evidence of DKA. BUN creatinine ratio is increased suggestive of dehydration. There is no fever or signs of infection, and lactic acid is not elevated. The patient was given IV fluids, subcutaneous insulin, morphine, and Benadryl and he states that he feels much better. On reassessment the patient states that he only has ongoing burning pain to bilateral lower extremities. There is no weakness, no back pain. I suspect that his pain is related to diabetic neuropathy, although he may also have viral illness causing diffuse myalgia. The patient's glucose improved to 80 with fluids and subcutaneous insulin. The patient states that he has a regular supply of insulin at home. I have advised the patient to monitor his blood sugar closely, follow up with his PMD in the next 2-3 days, and return to the ER if he experiences any new or worsening symptoms such as fever, vomiting, or other concerns. I will prescribe him a two-week course of Neurontin for presumed diabetic neuropathy. Departure Diagnosis: Primary Impression: Hyperglycemia Additional Impressions: Myalgia Peripheral neuropathy Condition: RONEL Castro MD August 24, 2016 10:20
--- NOTE | 2016-08-24 10:54 | RADRPT ---
PROCEDURE: XR Chest. CLINICAL INDICATION: Hyperglycemia, chest pain TECHNIQUE: Single frontal view of the chest was obtained COMPARISON: 05/28/2016 FINDINGS: The heart and mediastinum are within normal limits. There is mild patchy right basilar atelectasis. The lungs are otherwise clear. There is no pleural effusion or pneumothorax. IMPRESSION: Mild patchy right basilar atelectasis. Otherwise, no significant abnormalities are identified. RPTAT:AAJJ Physician Juan Date Time Electronically viewed and signed by Edenilson Eckert Physician on 08/24/2016 10:53 /
[2016-08-24 10:57] LABS: ADD SCAN DIFF NO
[2016-08-24 11:07] LABS: BASOPHILS % 0.1 % (0.0-2.0); EOSINOPHILS # 0.3 10^3/ul (0.0-0.5); HEMATOCRIT 35.4 % (42.0-52.0); HEMOGLOBIN 11.5 g/dl (14.0-18.0); LYMPHOCYTES % 6.7 % (15.0-51.0); MEAN CORPUSCULAR HEMOGLOBIN 30.3 pg (29.0-33.0); MEAN CORPUSCULAR HGB CONC 32.5 g/dl (32.0-37.0); MEAN CORPUSCULAR VOLUME 93.2 fl (82.0-101.0); MEAN PLATELET VOLUME 11.1 fl (7.4-10.4); MONOCYTES % 6.7 % (0.0-11.0); NEUTROPHILS % 84.1 % (39.0-77.0); PLATELET COUNT 157 10^3/UL (140-415); RED CELL DISTRIBUTION WIDTH 12.4 % (11.5-14.5); WHITE BLOOD COUNT 14.2 10^3/ul (4.8-10.8)
[2016-08-24] MEDS ORDERED: LANT3I SC (11:09)
[2016-08-24] MEDS ORDERED: INSU100C SQ (11:10)
[2016-08-24 11:27] LABS: INR 1.05; PARTIAL THROMBOPLASTIN TIME 30.4 Sec (25.0-35.0); PROTIME 13.7 Sec (12.2-14.2); PT RATIO 1.1
[2016-08-24 11:28] LABS: ALBUMIN 3.9 g/dl (3.3-4.9); ALBUMIN/GLOBULIN RATIO 1.62; BILIRUBIN,INDIRECT 0.2 mg/dl (0-1.1); BILIRUBIN,TOTAL 0.2 mg/dl (0.2-1.3); CALCIUM 9.4 mg/dl (8.4-10.2); CREATININE 0.97 mg/dl (0.61-1.24); POTASSIUM 4.7 mmol/L (3.5-5.1); TOTAL PROTEIN 6.3 g/dl (6.1-8.1)
[2016-08-24] MEDS ORDERED: INSULIN LISPRO 100 UNIT/ML VIAL SC ONE (12:00)
[2016-08-24 14:27] LABS: ADD UMIC YES; URINE BILIRUBIN (Dip) NEGATIVE (NEGATIVE); URINE BLOOD (Dip) TRACE (NEGATIVE); URINE COLOR LT. YELLOW (YELLOW); URINE GLUCOSE (Dip) >=1000 % (NEGATIVE); URINE KETONES (Dip) NEGATIVE (NEGATIVE); URINE LEUKOCYTE ESTERASE (Dip) NEGATIVE (NEGATIVE); URINE NITRITE (Dip) NEGATIVE (NEGATIVE); URINE TOTAL PROTEIN (Dip) 1+ (NEGATIVE); URINE UROBILINOGEN (Dip) 0.2 E.U./dL (0.1-1.0)
[2016-08-24] MEDS ORDERED: DIPHENHYDRAMINE 50 MG INJ IV ONE (15:00)
[2016-08-24] MEDS ORDERED: GABA100C14 PO (15:17)
[2016-08-24 15:46] VITALS: BP 131/80; PULSE 111; RESP 20; TEMP 98.6
[2016-08-25] MEDS ORDERED: TAMS0.4C2 PO (10:06)
[2016-08-25] MEDS ORDERED: LINA5TAB PO (10:06)
== END 2016-08-24 15:47 | disposition home or self-care (01) ==
LOC: E/R 09:12
DX: E11.65 Type 2 diabetes mellitus with hyperglycemia (principal); M79.1 Myalgia; G62.9 Polyneuropathy, unspecified; R07.9 Chest pain, unspecified; Z79.4 Long term (current) use of insulin; Z79.84 Long term (current) use of oral hypoglycemic drugs
CPT/HCPCS: 71010; 80053; 81001; 82550; 82962; 83605; 83690; 85025; 85610; 85730; 87040; 87086; 93005; J1200; J1815; J2270; J2405; J7030; 36415; 81003; 96372; 96374; 96375; 96376

== ENCOUNTER 2016-08-25 09:13 | Inpatient (IN) | payer MEDICAID ==
[~2016-08-25] VITALS: Ht 180.3 cm; Wt 60.9 kg
[2016-08-25] VITALS (8 sets, daily range): BP systolic 94–117; BP diastolic 56–69; PULSE 94–97; RESP 18–20; TEMP 98.3; Ht 180.3 cm; Wt 60.9 kg
[~2016-08-25 09:13] MED LIST changes: +GABA100C14 PO; -HYDR2TAB15 PO; +INSU100C SQ; -LINA5TAB PO; -METO10TA96 PO; -TAMS-14 PO
[2016-08-25] MEDS ORDERED: ACETAMINOPHEN 325 MG TAB PO STA (09:45)
[2016-08-25] MEDS ORDERED: HYDROmorphONE 2 MG/ML SYG IV STA ×2 (09:45→11:36)
[2016-08-25] MEDS ORDERED: CEFEPIME 2GM/50 ML (PMX) 50 ML IVPB STA (09:45)
[2016-08-25] MEDS ORDERED: SODIUM CHLORIDE 0.9% 1L BAG IV* STA (09:45)
[2016-08-25] MEDS ORDERED: ONDANSETRON 4 MG INJ IV STA ×2 (09:45→11:36)
[2016-08-25] MEDS ORDERED: VANCOMYCIN 1 GM (PMX) 250 ML IVPB ONE (10:00)
[2016-08-25] MEDS ORDERED: LEVOFLOXACIN 750MG/D5W (PMX) 150 ML IVPB ONE (10:00)
[2016-08-25] MEDS ORDERED: LINA5TAB PO (10:06)
[2016-08-25] MEDS ORDERED: TAMS0.4C2 PO (10:06)
--- NOTE | 2016-08-25 10:08 | ERA ---
ER Documentation Chief Complaint Date/Time DATE: 08/25/16 TIME: 10:04 Chief Complaint Pt with Body ache, COLON, fever for since yesterday. Dx with Leukemia. HPI Patient is a 31-year-old male who is 5 years status post treatment for leukemia and stem cell transplant who reports here for fever that started last night. He states he had a fever of 102.0. He is also complaining of cough productive of clear to whitish sputum. He feels short of breath and has a sore throat, as well as nasal congestion. He is also having diffuse body aches with nausea but no vomiting. He states that he has diffuse arthralgias as well. Of note he was here yesterday for evaluation and was treated with pain medications and IV fluids. He says he feels much worse today. He says that he has been in remission and had his port removed 6 months ago. He has not had any complications. Currently he is only on maintenance chemo. He denies any sick contacts or travel outside of the country. He has not recently been on any antibiotics. He is not having any vomiting or diarrhea, dysuria, flank pain, abnormal bleeding, bruises, or rashes. He does not have a headache, photophobia , neck stiffness, paresthesias, or focal weakness. Movement increases his pain , nothing makes it better. The remainder of the systems are negative. ROS All systems reviewed and are negative except as per history of present illness. Medications Home Meds Active Scripts Gabapentin* (Gabapentin*) 100 Mg Capsule, 100 MG PO TID, #42 CAP Prov:RONEL BENDER MD 08/24/16 Reported Medications Linagliptin (TRADJENTA) 5 Mg Tablet, 5 MG PO DAILY, TAB 08/25/16 Tamsulosin Hcl* (Tamsulosin Hcl*) 0.4 Mg Cap.er.24h, 0.4 MG PO HS, CAP 08/25/16 Insulin Lispro (Humalog) 100 Unit/1 Ml Cartridge, 0 SQ SLIDING SCALES WITH MEALS 08/24/16 Insulin Glargine* (Lantus*) 100 Unit/Ml Soln, 15 UNIT SC QAM, #1 VIAL 08/24/16 Discontinued Scripts Hydromorphone Hcl* (Dilaudid*) 2 Mg Tablet, 2 MG PO Q8H Y for PAIN LEVEL 6-10, # 10 TAB Prov:WESTLEY GILES. 05/31/16 Tamsulosin Hcl* (Flomax*) 0.4 Mg Cap.er.24h, 0.4 MG PO HS, #30 CAP 5 Refills Prov:WESTLEY GILES S. 05/31/16 Metoclopramide Hcl* (Metoclopramide Hcl*) 10 Mg Tablet, 5 MG PO Q6, #120 TAB 4 Refills Prov:WESTLEY GILES S. 05/31/16 Linagliptin (TRADJENTA) 5 Mg Tablet, 5 MG PO DAILY, #30 TAB 5 Refills Prov:WESTLEY GILES S. 05/31/16 Insulin Glargine* (Lantus*) 100 Unit/Ml Soln, 8 UNIT SC AM, #30 4 Refills Prov:WESTLEY GILES S. 05/31/16 Allergies Allergies: Coded Allergies: morphine (Verified Adverse Reaction, Severe, redness/itchiness, 08/24/16) PMhx/Soc History of Surgery: Yes (right portacath placement and removal; left 5th toe amputation) Anesthesia Reaction: No Hx Neurological Disorder: Yes (migraines ) Hx Respiratory Disorders: No Hx Cardiac Disorders: Yes (tachycardia ) Hx Psychiatric Problems: No Hx Miscellaneous Medical Probl: Yes (shingles ) Hx Alcohol Use: No Hx Substance Use: No Hx Tobacco Use: No Smoking Status: Never smoker Physical Exam Vitals Vital Signs Date Time Temp Pulse Resp B/P Pulse Ox O2 Delivery O2 Flow Rate FiO2 08/25/16 10:34 Nasal Cannula 2 08/25/16 09:24 100.3 120 20 123/73 94 Physical Exam Const: [] Well-developed cachectic appearing male lying on the bed appearing uncomfortable, patient appears ill but nontoxic Head: Atraumatic normocephalic Eyes: Normal Conjunctiva ENT: Normal External Ears, Nose and Mouth. Neck: Full range of motion..~ No meningismus. Resp: Possible end inspiratory wheeze in the right upper and right lower lobe , no tachypnea or retractions noted Cardio: Tachycardic, no murmurs, rubs, or gallops noted Abd: Soft, non tender, non distended. Normal bowel sounds Skin: No petechiae or rashes Back: No midline or flank tenderness Ext: No cyanosis, or edema Neur: Awake and alert, oriented 3, GCS of 15, moves all extremities equally , grossly nonfocal Psych: Normal Mood and Affect Result Diagram: 08/25/16 1000 08/25/16 1000 Results 24 hrs Laboratory Tests Test 08/25/16 10:00 White Blood Count 13.110^3/ul Red Blood Count 3.8010^6/ul Hemoglobin 11.8g/dl Hematocrit 35.7% Mean Corpuscular Volume 93.9fl Mean Corpuscular Hemoglobin 31.1pg Mean Corpuscular Hemoglobin Concent 33.1g/dl Red Cell Distribution Width 12.2% Platelet Count 61376^3/UL Mean Platelet Volume 11.0fl Neutrophils % 53.0% Band Neutrophils % 24.0% Lymphocytes % 10.0% Monocytes % 10.0% Eosinophils % 2.0% Myelocytes % 1.0% Neutrophils # 6.910^3/ul Lymphocytes # 1.310^3/ul Monocytes # 1.310^3/ul Eosinophils # 0.310^3/ul Myelocytes # 0.1 Prothrombin Time 14.1Sec Prothrombin Time Ratio 1.1 INR International Normalized Ratio 1.09 Activated Partial Thromboplast Time 35.0Sec Sodium Level 134mmol/L Potassium Level 4.2mmol/L Chloride Level 95mmol/L Carbon Dioxide Level 24mmol/L Anion Gap 19 Blood Urea Nitrogen 20mg/dl Creatinine 0.82mg/dl Glucose Level 275mg/dl Lactic Acid Level 1.2mmol/L Calcium Level 9.1mg/dl Total Bilirubin 0.4mg/dl Direct Bilirubin 0.00mg/dl Indirect Bilirubin 0.4mg/dl Aspartate Amino Transf (AST/SGOT) 22IU/L Alanine Aminotransferase (ALT/SGPT) 31IU/L Alkaline Phosphatase 98IU/L Troponin I < 0.012ng/ml Total Protein 7.1g/dl Albumin 4.0g/dl Globulin 3.10g/dl Albumin/Globulin Ratio 1.29 Current Medications Medications (Trade) Dose Ordered Sig/Brianna Route PRN Reason Start Time Stop Time Status Last Admin Dose Admin Sodium Chloride (NS) 1,790 ml BOLUS OVER 2 HOURS STAT IV* 08/25/16 09:45 08/25/16 09:49 DC 08/25/16 10:14 Acetaminophen 650 mg 650 mg ONCE STAT PO 08/25/16 09:45 08/25/16 09:49 DC 08/25/16 10:14 Cefepime HCl 50 ml @ 100 mls/hr ONCE STAT IVPB 08/25/16 09:45 08/25/16 10:14 DC 08/25/16 10:14 Vancomycin HCl 250 ml @ 125 mls/hr ONCE ONCE IVPB 08/25/16 10:00 08/25/16 11:59 Levofloxacin/ Dextrose (Levaquin 750 Mg/ D5W 150 ml (Pmx)) 150 ml @ 100 mls/hr ONCE ONCE IVPB 08/25/16 10:00 08/25/16 11:29 DC 08/25/16 10:53 Hydromorphone HCl (Dilaudid) 2 mg ONCE STAT IV 08/25/16 09:45 08/25/16 09:49 DC 08/25/16 10:13 Ondansetron HCl (Zofran Inj) 4 mg ONCE STAT IV 08/25/16 09:45 08/25/16 09:49 DC 08/25/16 10:13 Procedures/MDM Differential includes but is not limited to fever, sepsis, bacteremia, pneumonia , bronchitis, flu, urinary tract infection EKG: Rate/Rhythm: Sinus tachycardia at 122 beats a minute, right bundle branch block, no evidence for acute ischemia, arrhythmia, or ectopy noted, no other EKG available for comparison QRS, ST, T-waves: No changes consistent w/ acute ischemia Impression: No evidence of ischemia or arrhythmia Chest x-ray shows a right lower lobe infiltrate CT of the chest shows a right middle lobe and right lower lobe infiltrate consistent with pneumonia Patient's differential on his CBC shows a 24% bandemia 1132: Patient states he feels a little better at this time. Currently his blood pressure is 101/57, heart rate of 100, 93% on room air. Clinically his exam is unchanged. I feel it is most prudent to admit him at least to telemetry at this time. He has been updated of his test results. He is aware he is being admitted to the hospital. He has no questions at this time. Critical care time of 45 minutes not to include any procedures. Departure Diagnosis: Primary Impression: Pneumonia Qualified Code: J18.1 - Pneumonia of right lower lobe due to infectious organism Additional Impressions: Failure to thrive in adult Hypoxemia Condition: ETHEL Godoy August 25, 2016 10:08
--- NOTE | 2016-08-25 10:30 | RADRPT ---
PROCEDURE: XR Chest. CLINICAL INDICATION: chest pain TECHNIQUE: Single frontal view of the chest was obtained COMPARISON: 05/28/2016 FINDINGS: The heart and mediastinum are within normal limits. There is a right lower lobe infiltrate. There is no pleural effusion or pneumothorax. RPTAT: AA IMPRESSION: Right lower lobe pneumonia. .Gama Witt MD, MD Date Time Electronically viewed and signed by .Gama Witt MD, MD on 08/25/2016 10:29 .S/
[2016-08-25 10:33] LABS: ADD SCAN DIFF NO
[2016-08-25 10:49] LABS: CHLORIDE 95 mmol/L (97-110)
[2016-08-25 10:50] LABS: HEMATOCRIT 35.7 % (42.0-52.0); HEMOGLOBIN 11.8 g/dl (14.0-18.0); MEAN CORPUSCULAR HEMOGLOBIN 31.1 pg (29.0-33.0); MEAN CORPUSCULAR HGB CONC 33.1 g/dl (32.0-37.0); MEAN CORPUSCULAR VOLUME 93.9 fl (82.0-101.0); PLATELET COUNT 180 10^3/UL (140-415); POTASSIUM 4.2 mmol/L (3.5-5.1); RED CELL DISTRIBUTION WIDTH 12.2 % (11.5-14.5); SODIUM 134 mmol/L (135-144); WHITE BLOOD COUNT 13.1 10^3/ul (4.8-10.8)
[2016-08-25 10:52] LABS: ALBUMIN/GLOBULIN RATIO 1.29; ALKALINE PHOSPHATASE 98 IU/L (42-121); ANION GAP 19 (8-16); ASPARTATE AMINO TRANSFERASE 22 IU/L (15-46); BILIRUBIN,INDIRECT 0.4 mg/dl (0-1.1); BILIRUBIN,TOTAL 0.4 mg/dl (0.2-1.3); BLOOD UREA NITROGEN 20 mg/dl (7-20); CARBON DIOXIDE 24 mmol/L (21-31); CREATININE 0.82 mg/dl (0.61-1.24); TOTAL PROTEIN 7.1 g/dl (6.1-8.1)
[2016-08-25 10:53] LABS: ALANINE AMINOTRANSFERASE 31 IU/L (13-69); CALCIUM 9.1 mg/dl (8.4-10.2); GLUCOSE 275 mg/dl (70-220)
--- NOTE | 2016-08-25 10:54 | RADRPT ---
PROCEDURE: CT Chest Without Contrast CLINICAL INDICATION: Year with cough, leukemia TECHNIQUE: Volumetric acquisition of the thorax was performed without the intravenous administrati on of contrast. Radiation Dose: CTDI = 622 mGy; DLP = 285.63 mGy-cm. COMPARISON: 08/12/2014. FINDINGS: Lung thrasher: The lung thrasher are again hyperexpanded. Increasing foci of alveolar infiltrate are see n within the right lower lobe. To a lesser extent small foci of nodular infiltrate is seen within t he left lower lobe including a 1 cm focus seen on axial image #69 of series 4 and sagittal image #75 of series 602. There is no longer infiltrate/subsegmental atelectasis involving the lingular segme nt left upper lobe. The pleural spaces: No effusion or pneumothorax is identified. Lymph nodes: There is a 1.4 cm in short diameter subcarinal node which is slightly decreased in size from the previous study. There is an 8 mm in short diameter precarinal node, which has not changed . Cardiovascular structures: The heart is normal in size. The aorta appears normal in caliber. Mild v ascular calcification is evident. Thyroid: Unremarkable. Superior abdominal structures: No significant abnormality is evident. Osseous structures: Appear intact. IMPRESSION: 1. Increasing alveolar infiltrate is seen within the inferior right lower lobe with other smaller f oci of patchy alveolar infiltrate seen more superiorly within the right lower lobe. 2. Small nodular foci of infiltrate are now seen within the left lower lobe including a 1 cm nodula r focus described above. There is no longer infiltrate/subsegmental atelectasis involving the lingu lar segment left upper lobe and the remaining lung thrasher are clear but hyperexpanded. 3. No effusion or pneumothorax is evident. 4. There is a 1.4 cm in short diameter subcarinal node which has decreased slightly in size from th e previous. There is an 8 mm in short diameter precarinal node, unchanged. 5. Minimal vascular calcification is evident. Physician Mark Date Time Electronically viewed and signed by Physician Mark on 08/25/2016 10:54 /
[2016-08-25 10:56] LABS: INR 1.09; PROTIME 14.1 Sec (12.2-14.2); PT RATIO 1.1
[2016-08-25 11:08] LABS: TROPONIN-I < 0.012 ng/ml (0.00-0.12)
[2016-08-25 11:22] LABS: EOSINOPHILS # 0.3 10^3/ul (0.0-0.5); LYMPHOCYTES # 1.3 10^3/ul (0.8-2.9); MONOCYTE # 1.3 10^3/ul (0.3-0.9); MYELOCYTES # 0.1; NEUTROPHIL # 6.9 10^3/ul (1.6-7.5)
[2016-08-25] MEDS ORDERED: DIPHENHYDRAMINE 50 MG INJ IV ONE (12:30)
[2016-08-25] MEDS ORDERED: ACETAMINOPHEN 325 MG TAB PO PRN ×2 (13:00→14:30)
[2016-08-25] MEDS ORDERED: ONDANSETRON 4 MG INJ IV PRN ×2 (13:00→14:30)
[2016-08-25] MEDS ORDERED: NACL 0.9% 3 ML SYG IV SCH (14:30)
[2016-08-25] MEDS ORDERED: LORAZEPAM 2 MG INJ IV PRN (14:30)
[2016-08-25] MEDS ORDERED: BISACODYL (EC) 5 MG TAB PO PRN (14:30)
[2016-08-25] MEDS ORDERED: VANCOMYCIN IV PER PHARMACY XX SCH (14:30)
[2016-08-25] MEDS ORDERED: MAGNESIUM HYDROXIDE 30ML CUP PO PRN (14:30)
[2016-08-25] MEDS: HYDROmorphONE 1 MG/ML SYG IV PRN ×2 (15:12→19:53)
[2016-08-25] MEDS: DIPHENHYDRAMINE 25 MG CAP PO PRN (16:40)
[2016-08-25] MEDS: INSULIN ASPART [NOVOLOG] 3 ML PEN SC SCH ×5 (17:36→20:24)
[2016-08-25 17:38] LABS: IRON 21 ug/dl (35-150)
[2016-08-25] MEDS: HYDROCODONE/APAP (5/325) TAB PO PRN (17:42)
[2016-08-25] MEDS: SOD CHLORIDE 0.9% 1,000 ML IV SCH (17:44)
[2016-08-25 17:48] LABS: TOTAL IRON BINDING CAPACITY 208 ug/dl (241-421)
--- NOTE | 2016-08-25 18:12 | HP ---
DATE OF ADMISSION: 08/25/2016 TIME OF EVALUATION: 1300 hours. REASON FOR ADMISSION: Headache, body aches and fevers. CONSULTATIONS: Dr. Peyman Spaulding, Oncology. HISTORY OF PRESENT ILLNESS: This is a 31-year-old male patient with past medical history of acute lymphoblastic leukemia, status post stem cell transplantation, type 2 diabetes mellitus, and diabetic gastroparesis who came to the emergency room with a chief complaint of generalized body aches and fever that started since 08/24/2016. The patient also verbalized a productive cough with clear white sputum production. The patient also verbalized shortness of breath and sore throat as well as nasal congestion. The patient verbalized diffuse arthralgias. The patient follows up at [facility] for acute lymphoblastic leukemia on a 6-month basis. Currently, he is on maintenance chemotherapy. The patient denied any sick contacts or travel outside the country. The patient denied any photophobia, headache, neck stiffness, paresthesias or focal weakness. The patient denied any nausea, vomiting or abdominal pain. The patient denied any dysuria or flank pain. The patient was complaining of pain in the area between the rectum and scrotal area which was described as a "pins and needles." The patient is already on gabapentin for his underlying diabetic neuropathy. In the emergency room, the patient was noticed to be febrile. The patient also had leukocytosis and bandemia. The patient had no lactic acidosis. The patient underwent a chest CT scan that showed increasing alveolar infiltrates in the inferior right lower lobe with other small foci of patchy alveolar infiltrate seen most superiorly within the right lower lobe. The patient was treated with IV Levaquin and IV vancomycin in the emergency room. PAST MEDICAL HISTORY: Acute lymphoblastic leukemia, status post stem cell transplantation, type 2 diabetes mellitus, diabetic gastroparesis, diabetic neuropathy, benign prostatic hypertrophy. PAST SURGICAL HISTORY: Left great toe amputation. HOME MEDICATIONS: 1. Tamsulosin 0.4 mg p.o. at bedtime. 2. Gabapentin 100 mg p.o. t.i.d. 3. Lantus insulin 15 units subcutaneous q.a.m. 4. Lispro subcutaneous as per sliding scale. 6. Linagliptin 5 mg p.o. daily. ALLERGIES: MORPHINE. SOCIAL HISTORY: The patient lives at home. Denies any history of tobacco or alcohol use. The patient uses medical marijuana. REVIEW OF SYSTEMS: A 12-point review of systems were negative other than what is mentioned in history of present illness. PHYSICAL EXAMINATION: VITAL SIGNS: Temperature 97.7, pulse rate 96, respiratory rate 20, blood pressure 117/56, oxygen saturation 92% on low flow O2. GENERAL: This is a thin, frail-looking male patient lying in bed in no apparent distress. HEENT: Head normocephalic and atraumatic. Eyes: Anicteric sclerae. Conjunctivae clear. ENT: Nasal septum is midline. Oral mucosa is dry. NECK: Supple. JVD noticed. RESPIRATORY: Bilaterally diminished breath sounds. No use of accessory muscles of respiration. CARDIAC: Regular rate and rhythm. GASTROINTESTINAL: S1, S2 heard. ABDOMEN: Scaphoid. Muscle wasting. Nontender. Bowel sounds positive in all 4 quadrants. GENITOURINARY: Deferred. EXTREMITIES: No cyanosis, no clubbing, no edema. Peripheral pulses are palpable. NEUROLOGIC: The patient is awake, alert and oriented. Cranial nerves are grossly intact. LABORATORY AND DIAGNOSTIC DATA: WBC 13.1, hemoglobin 11.8, hematocrit 35.1, platelet count 180, neutrophils 24%. Sodium 134, potassium 4.0, chloride 97, carbon dioxide 25, anion gap 19, BUN 20, creatinine 0.82, glucose 275, calcium 9.1. Chest x-ray: Right lower lobe pneumonia. Chest CT scan. Increasing alveolar infiltrate is seen in the inferior lower lobe with small foci of patchy alveolar infiltrates seen more superiorly within the right lower lobe. Small nodular foci of infiltrate seen within the left lower lobe, including a 1 cm nodular focus. There is no longer infiltrate/ subsegmental atelectasis involving the lingular segment of the left upper lobe and remaining lung thrasher are clear but hyperexpanded. There is a 1.4 cm diameter subcarinal node which has decreased slightly in size from previous. 12-lead EKG with sinus tachycardia. IMPRESSION: This is a 31-year-old male with a past medical history of acute lymphoblastic leukemia, status post stem cell transplantation who came to the emergency room with a chief complaint of body aches and febrile illness. He was found to have evidence of underlying pneumonia who will be admitted here for further treatment and evaluation. ASSESSMENT AND PLAN: 1. Sepsis secondary to underlying community-acquired pneumonia. No evidence of any septic shock. The patient will be continued on empiric antibiotics. Colindres cultures will be obtained. The patient will be adequately hydrated using IV fluids. 2. Type 2 diabetes mellitus. Hemoglobin A1c will be obtained to evaluate the blood glucose over the past few months. The patient will be started on sliding scale insulin along with Lantus insulin and premeal insulin. 3. Normocytic, normochromic anemia most probably anemia of chronic disease. We will monitor the hemoglobin and hematocrit closely. We will order an iron panel on this patient. 4. Body pain, most probably secondary to underlying infectious process. Influenza A and B screen will be ordered. The patient will be provided with adequate pain control. 5. Diabetic neuropathy. The patient will be continued on gabapentin. 6. Benign prostatic hypertrophy. The patient will be continued on home Flomax. 7. Diabetic gastroparesis. We will monitor the patient for diabetic gastroparesis. If the patient has significant symptoms, the patient will be started on prokinetics. Plan. The patient will be admitted to inpatient telemetry floor. The patient will be started on a carbohydrate controlled diet. The patient will be started on deep venous thrombosis prophylaxis and gastrointestinal prophylaxis. The patient will remain a FULL CODE. Activities will be as tolerated. The rest of the patient's management will be based on the clinical course, the results of diagnostic findings and input from consultants. Based on the patient's clinical presentation, he most probably requires at least 2 midnights' stay for further management and evaluation of his clinical presentation. The case and management of this patient was fully discussed with Dr. Simms. MARIANA SIMMS MD, AM/JAMIL Conf#: [id number] DID#: [id number] PATRICIA
[2016-08-25] MEDS: VANCOMYCIN 750 MG in SOD CHLORIDE 0.9% 150 ML IVPB SCH (19:53)
[2016-08-25] MEDS: CEFEPIME 1GM/50 ML (PMX) 50 ML IVPB SCH (20:14)
[2016-08-25] MEDS: FAMOTIDINE 20 MG TAB PO SCH (20:14)
[2016-08-25] MEDS: GABAPENTIN 100 MG CAP PO SCH (20:14)
[2016-08-25] MEDS: TAMSULOSIN (SR) 0.4 MG CAP PO SCH (20:14)
[2016-08-26] VITALS (11 sets, daily range): BP systolic 89–113; BP diastolic 54–73; PULSE 80–107; RESP 16–19
[2016-08-26] MEDS: HYDROmorphONE 1 MG/ML SYG IV PRN ×6 (00:06→21:59)
[2016-08-26] MEDS: HYDROCODONE/APAP (5/325) TAB PO PRN ×3 (01:30→20:59)
[2016-08-26] MEDS: ACCU-CHEK XX SCH (02:00)
[2016-08-26] MEDS: SOD CHLORIDE 0.9% 1,000 ML IV SCH ×3 (06:15→23:30)
[2016-08-26] MEDS: VANCOMYCIN 750 MG in SOD CHLORIDE 0.9% 150 ML IVPB SCH ×3 (06:15→21:01)
[2016-08-26 07:25] LABS: ADD SCAN DIFF NO
[2016-08-26 07:29] LABS: BASOPHILS % 0.1 % (0.0-2.0); EOSINOPHILS # 0.2 10^3/ul (0.0-0.5); EOSINOPHILS % 2.4 % (0.0-7.0); HEMATOCRIT 30.7 % (42.0-52.0); LYMPHOCYTES # 1.3 10^3/ul (0.8-2.9); LYMPHOCYTES % 15.5 % (15.0-51.0); MEAN CORPUSCULAR HEMOGLOBIN 31.3 pg (29.0-33.0); MEAN CORPUSCULAR HGB CONC 32.6 g/dl (32.0-37.0); MEAN CORPUSCULAR VOLUME 95.9 fl (82.0-101.0); MONOCYTE # 0.7 10^3/ul (0.3-0.9); MONOCYTES % 8.1 % (0.0-11.0); NEUTROPHIL # 6.2 10^3/ul (1.6-7.5); NEUTROPHILS % 73.7 % (39.0-77.0); PLATELET COUNT 150 10^3/UL (140-415); RED CELL DISTRIBUTION WIDTH 12.4 % (11.5-14.5); WHITE BLOOD COUNT 8.4 10^3/ul (4.8-10.8)
[2016-08-26] MEDS: DIPHENHYDRAMINE 25 MG CAP PO PRN (07:33)
[2016-08-26 07:59] LABS: ALBUMIN 2.7 g/dl (3.3-4.9)
[2016-08-26 08:00] LABS: POTASSIUM 4.4 mmol/L (3.5-5.1)
[2016-08-26 08:00] LABS: CHOLESTEROL 71 mg/dl (100-200); MAGNESIUM 1.8 mg/dl (1.7-2.5); PHOSPHORUS 2.6 mg/dl (2.5-4.9); TRIGLYCERIDES 102 mg/dl (0-149)
[2016-08-26] MEDS: INSULIN ASPART [NOVOLOG] 3 ML PEN SC SCH ×7 (08:00→21:00)
[2016-08-26 08:01] LABS: HDL CHOLESTEROL 34 mg/dl (28-63)
[2016-08-26 08:02] LABS: ALBUMIN/GLOBULIN RATIO 1.17; BILIRUBIN,INDIRECT 0.1 mg/dl (0-1.1); BILIRUBIN,TOTAL 0.1 mg/dl (0.2-1.3); CREATININE 0.67 mg/dl (0.61-1.24)
[2016-08-26 08:03] LABS: CALCIUM 7.5 mg/dl (8.4-10.2)
[2016-08-26 08:05] LABS: TROPONIN-I < 0.012 ng/ml (0.00-0.12)
[2016-08-26] MEDS: GABAPENTIN 100 MG CAP PO SCH ×3 (08:33→21:01)
[2016-08-26] MEDS: LINAGLIPTIN 5 MG TABLET PO SCH (08:33)
[2016-08-26] MEDS: FAMOTIDINE 20 MG TAB PO SCH ×2 (08:33→21:01)
[2016-08-26] MEDS: CEFEPIME 1GM/50 ML (PMX) 50 ML IVPB SCH ×2 (08:34→21:01)
[2016-08-26] MEDS: DIPHENHYDRAMINE 50 MG INJ IV PRN ×2 (08:44→23:25)
[2016-08-26] MEDS: ENOXAPARIN 40 MG/0.4 ML SYG SC SCH (08:54)
[2016-08-26] MEDS ORDERED: INSULIN GLARGINE [LANtus] 3 ML PEN SC SCH (09:00)
--- NOTE | 2016-08-26 09:04 | CONS ---
DATE OF ADMISSION: 08/25/2016 DATE OF CONSULTATION: 08/26/2016 TYPE OF CONSULTATION: Hematology/oncology. REQUESTING PHYSICIAN: Dr. Lewis REASON FOR CONSULTATION: History of acute leukemia and probable pneumonia. Dear Dr. Lewis: Thank you very much for asking me to see this very interesting and pleasant gentleman in hematologic consultation. Mr. Marcus is a 31-year-old male who was admitted to [facility] on 08/25/2016. The patient presented at that time to the emergency room with 1-da y history of diffuse bony aching. The patient denies any other complaints of shortness of breath or cough. He has had no chest pain. He states his temperature may have been as high as 102. The patient states that up until the time of onset of symptoms he was feeling well. He was able to continue his work on a daily basis at a [employer] station. On admission, the patient had a white count of 13,300 with 53% neutrophils and absolute neutrophil c ount of 6930, there were 24% bands, 10% lymphs, 10 monocytes, 1 myelocyte. Red blood cell count 3.8 million, hemoglobin 11.8, hematocrit 35.7, MCV 93.9, MCH 31.1, MCHC 33.1, RDW 12.2, platelet count 180,000, MPV 11. The patient did have a CMP on admission that was normal except for sodium 134, pot assium 95, glucose is 275. Other liver functions were normal including a bilirubin of 0.4, total an d indirect of 0.4, AST 22, ALT 31, alkaline phosphatase 98. Iron studies demonstrate a serum iron o f 21, iron binding capacity of 208, percent saturation of 10%. Chest x-ray on admission demonstrated a right lower lobe infiltrate. CT scan of the chest demonstra zacarias increasing alveolar infiltrates seen in the inferior right lower lobe with others smaller foci o f patchy alveolar infiltrate more superiorly in the right lower lobe. There was also 1.4 cm subcari nal node seen which had apparently been seen in previous studies, but was actually decreased. Cultures: Blood cultures have been obtained and are pending. Influenza type A and have been sent as well. The patient has been started on vancomycin and Cefepime. Of significance is the patient's past history which includes a diagnosis of acute lymphoblastic leuk emia which was originally made when the patient was 18 years old. The patient was treated with chem otherapy. Initially, the patient received chemotherapy at [facility]. He was on chemotherapy for approxi mately 7 years. Ultimately, the patient underwent a stem cell transplant from an unrelated donor ap proximately 5 years ago. The patient has been in remission since that time. He has not required an y further chemotherapy. He has not had any signs or symptoms of graft versus host reaction. Other medical problems and in the past have included type 2 diabetes mellitus which is insulin-depen dent. This started with the chemotherapy the patient received for leukemia. The patient also has n europathy due to that chemotherapy as well as diabetes. The patient has also had a history of herpes zoster involving the right side of his face. This was following transplant. He has also had a diabetic ulcer on his left foot which required amputation o f the fifth toe on the left foot. Besides the amputation, the patient has also had to have Port-A-Cath placed which was removed in . MEDICATIONS: At this time include: 1. Tamsulosin 0.4 mg hours of sleep. 2. Gabapentin 100 mg t.i.d. 3. The patient is also taking Lantus insulin. 4. Lispro. 5. Tradjenta. ALLERGIES: THE PATIENT STATES HE IS ALLERGIC TO MORPHINE. SOCIAL HISTORY: The patient lives at home with family. He is unmarried. Does not smoke or use alc ohol. Does use, occasional marijuana. 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 He has had exposure to chemotherapeutic agents as noted. Other than those things mentioned above, the patient's only other symptoms at this time include a ge neralized pruritus, which started after being admitted to the hospital and receiving initial antibio tic therapy. PHYSICAL EXAMINATION GENERAL: At this time reveals a well-developed, thin male who is in no acute distress. VITAL SIGNS: Temperature 97.7, pulse 86 per minute and regular, respirations 18, blood pressure 113 /59, pulse oximetry 97% on room air. SKIN: Good skin turgor. Warm and dry. There are no ecchymosis, petechiae or rashes. The patient does show evidence of excoriation on the anterior abdominal wall. HEENT: Normocephalic. No evidence of trauma. Pupils equal, round, react to light and accommodatio n. Sclerae nonicteric. Oral mucosa is moist without lesions. Tongue is well papillated. No gingi sharri hyperplasia, no hypertrophy of Waldeyer ring, no mucosal telangiectasias. NECK: Supple, no jugular venous distention or thyroid enlargement. CHEST: Decreased breath sounds in the right lower lung thrasher. There are occasional rales. No rub s are heard. No wheezes or rhonchi. There is a surgical scar in the area of a previous right anteri or chest Port-A-Cath. HEART: Regular sinus rhythm, no S3, S4 or murmurs. No rubs. BREASTS: No gynecomastia nodes. No palpable lymphadenopathy in any lymph node bearing area. ABDOMEN: Soft. There is no organomegaly, masses or tenderness. Bowel sounds are active. No ascit es. EXTREMITIES: Good range of motion. No clubbing, no edema or cyanosis. No palpable cords or Homans sign. There is amputation of the fifth toe on the left foot. NEUROLOGIC: Reveals no focal neurologic abnormalities. DISCUSSION: This 31-year-old gentleman has a history of acute lymphoblastic leukemia. The patient did receive 7 years of chemotherapy followed by a stem cell transplant from an unrelated donor. The patient has now been in remission since the stem cell transplant 5 years ago. This was done at [facility]. The patient did have a bone marrow done 1 year after transplant which was clear. The patient is fol lowed every 6 months at [facility], but is receiving no chemotherapy and has received no chemotherapy of any sort since the transplant. The patient also has had no symptoms suggesting graft versus host reaction and has not required any immunosuppressive therapy. The patient presently is admitted with fever and evidence of right lower lobe pneumonia. The [facility] eral smear has been reviewed. Red blood cell morphology is normal except for increased rouleaux for mation. There are no fragmented red blood cells, no spherocytes. White blood cells are increased i n number with a left shift. There is an increased population of bands. There are no immature granu locytes seen. There are no nucleated red blood cells, no hypersegmented polys. There are occasiona l atypical lymphocytes but no evidence of lymphoblasts. Platelets are normal in number and appearan ce. As noted, this patient has right lower lobe pneumonia at this time. There is no contraindication an y necessary antibiotic therapy. The patient has no evidence at this time of acute leukemia or graft versus host reaction. There are no special precautions need to be taken. As noted, the patient is experiencing increasing pruritus since his admission to the hospital and st arted on initiation of antibiotic therapy. He has not developed a rash, but this pruritus may be re lated to the use of antibiotics or possibly to the patient's underlying type 2 diabetes mellitus. Dictated By: SARY CASTANON MD SR/NTS Conf#: [id number] DID#: [id number]
--- NOTE | 2016-08-26 14:19 | PN ---
Date/Time of Note Date/Time of Note DATE: 08/26/16 TIME: 14:08 Assessment/Plan VTE Prophylaxis VTE Prophylaxis Intervention: LMWH Lines/Catheters IV Catheter Type (from Nrs): Peripheral IV Assessment/Plan Assessment/Plan 1. Community-acquired pneumonia, on vancomycin and cefepime 2. Type 2 diabetes mellitus. increase insulins 3. Normocytic, normochromic anemia most probably anemia of chronic disease. 4. Diabetic neuropathy. The patient will be continued on gabapentin. 5. Benign prostatic hypertrophy. The patient will be continued on home Flomax. 6. Diabetic gastroparesis. 7. DVT prophylaxis: lovenox Subjective 24 Hr Interval Summary Free Text/Dictation feels better. no fever. cough Exam/Review of Systems Vital Signs Vitals Vital Signs Date Time Temp Pulse Resp B/P Pulse Ox O2 Delivery O2 Flow Rate FiO2 08/26/16 12:33 97.9 108 16 108/73 95 08/25/16 21:40 Nasal Cannula 2.0 Intake and Output 08/25/16 08/25/16 08/26/16 15:00 23:00 07:00 Intake Total 600 ml 2200 ml Output Total 300 ml 950 ml Balance 300 ml 1250 ml Exam Constitutional: alert, oriented, well developed Psych: nl mood/affect, no complaints Head: atraumatic, normocephalic Eyes: EOMI, PERRL, nl conjunctiva, nl lids ENMT: nl external ears & nose, nl lips & teeth, nl nasal mucosa & septum Neck: non-tender, supple Respiratory: crackles/rales (right) Cardiovascular: nl pulses, regular rate and rhythm, No S3, No S4, No bruits, No diastolic murmur, No edema, No gallop, No irregular rhythm, No jugular venous distention (JVD), No murmurs/extra sounds, No other, No rub, No systolic murmur Gastrointestinal: nl liver, spleen, non-tender, soft, No ascites, No bowel sounds, No distended, No firm, No hepatomegaly, No mass , No other, No rebound or guarding, No splenomegaly, No surgical scars, No tender Musculoskeletal: nl extremities to inspection Extremities: normal pulses, No calf tenderness, No clubbing, No cyanosis, No edema, No other, No palpable cord, No pitting pedal edema, No tenderness Neurological: ENGRAVER COPPERPLATE II-XII intact, nl mental status, nl speech, nl strength Skin: nl turgor Lymph: nl lymph nodes Results Result Diagram: 08/26/16 0650 08/26/16 0638 Results 24 hrs Laboratory Tests Test 08/25/16 15:30 08/25/16 17:26 08/25/16 20:05 08/26/16 06:30 Lactic Acid Level 1.1 Bedside Glucose 291 H 214 Phosphorus Level 2.6 Magnesium Level 1.8 Troponin I < 0.012 Triglycerides Level 102 Cholesterol Level 71 L LDL Cholesterol, Calculated 17 HDL Cholesterol 34 Cholesterol/HDL Ratio 2.0 Test 08/26/16 06:38 08/26/16 06:50 08/26/16 07:39 08/26/16 11:18 Sodium Level 135 Potassium Level 4.4 Chloride Level 102 Carbon Dioxide Level 23 Anion Gap 14 Blood Urea Nitrogen 22 H Creatinine 0.67 Glucose Level 224 H Calcium Level 7.5 L Total Bilirubin 0.1 L Direct Bilirubin 0.00 Indirect Bilirubin 0.1 Aspartate Amino Transf (AST/SGOT) 18 Alanine Aminotransferase (ALT/SGPT) 26 Alkaline Phosphatase 66 Total Protein 5.0 #L Albumin 2.7 #L Globulin 2.30 Albumin/Globulin Ratio 1.17 White Blood Count 8.4 # Red Blood Count 3.20 L Hemoglobin 10.0 L Hematocrit 30.7 L Mean Corpuscular Volume 95.9 Mean Corpuscular Hemoglobin 31.3 Mean Corpuscular Hemoglobin Concent 32.6 Red Cell Distribution Width 12.4 Platelet Count 150 Mean Platelet Volume 11.0 H Neutrophils % 73.7 Lymphocytes % 15.5 Monocytes % 8.1 Eosinophils % 2.4 Basophils % 0.1 Nucleated Red Blood Cells % 0.0 Neutrophils # 6.2 Lymphocytes # 1.3 Monocytes # 0.7 Eosinophils # 0.2 Basophils # 0.0 Nucleated Red Blood Cells # 0.0 Bedside Glucose 236 H Vancomycin Level Trough 15.8 Test 08/26/16 11:45 Bedside Glucose 309 H Medications Medications Current Medications Lorazepam (Ativan) 0.5 mg Q6H PRN IV ANXIETY; Start 08/25/16 at 14:30 Ondansetron HCl (Zofran Inj) 4 mg Q6H PRN IV NAUSEA AND/OR VOMITING; Start at 14:30 Acetaminophen (Tylenol Tab) 650 mg Q6H PRN PO PAIN LEVEL 1-3 OR FEVER; Start at 14:30 Acetaminophen/ Hydrocodone Bitart (Ophir (5/325)) 2 tab Q6H PRN PO PAIN LEVEL 7 -10 Last administered on 08/26/16 11:54; Admin Dose 2 TAB; Start 08/25/16 at 14 :30 Hydromorphone HCl (Dilaudid) 1 mg Q4H PRN IV PAIN LEVEL 7-10 Last administered on 08/26/16 12:55; Admin Dose 1 MG; Start 08/25/16 at 14:30 Magnesium Hydroxide (Milk Of Mag) 30 ml DAILY PRN PO CONSTIPATION; Start at 14:30 Bisacodyl (Dulcolax) 5 mg DAILY PRN PO CONSTIPATION; Start 08/25/16 at 14:30 Famotidine (Pepcid) 20 mg Q12 PO Last administered on 08/26/16 08:33; Admin Dose 20 MG; Start 08/25/16 at 21:00 Enoxaparin Sodium (Lovenox) 40 mg DAILY SC Last administered on 08/26/16 08:54 ; Admin Dose 40 MG; Start 08/26/16 at 09:00 Gabapentin (Neurontin) 100 mg TID PO Last administered on 08/26/16 11:54; Admin Dose 100 MG; Start 08/25/16 at 21:00 Insulin Glargine (Lantus) 15 unit QAM SC Last administered on 08/26/16 08:53; Admin Dose 15 UNIT; Start 08/26/16 at 09:00 Linagliptin (Tradjenta) 5 mg DAILY PO Last administered on 08/26/16 08:33; Admin Dose 5 MG; Start 08/26/16 at 09:00 Tamsulosin HCl 0.4 mg 0.4 mg HS PO Last administered on 08/25/16 20:14; Admin Dose 0.4 MG; Start 08/25/16 at 21:00 Cefepime HCl (Maxipime 1gm/50 ml (Pmx)) 50 ml @ 100 mls/hr Q12 IVPB Last administered on 08/26/16 08:34; Admin Dose 100 MLS/HR; Start 08/25/16 at 21:00 Diagnostic Test (Pha) 1 ea 1 ea 02 XX ; Start 08/26/16 at 02:00 Vancomycin HCl 750 mg/Sodium Chloride 150 ml @ 75 mls/hr Q8H IVPB Last administered on 08/26/16 12:54; Admin Dose 75 MLS/HR; Start 08/25/16 at 20:00 Sodium Chloride (NS) 1,000 ml @ 100 mls/hr Q10H IV Last administered on 06:15; Admin Dose 100 MLS/HR; Start 08/25/16 at 17:30 Diphenhydramine HCl (Benadryl) 25 mg Q6H PRN IV ITCHING Last administered on 08:44; Admin Dose 25 MG; Start 08/26/16 at 08:30 TYLER MANZO MD August 26, 2016 14:19
--- NOTE | 2016-08-26 15:07 | CONS ---
DATE OF ADMISSION: 08/25/2016 DATE OF CONSULTATION: 08/26/2016 TYPE FOR CONSULTATION: Infectious disease consultation REASON FOR CONSULTATION: Antibiotic management. HISTORY OF PRESENT ILLNESS: Glen Marcus is a 31-year-old male with a number of problems who c omes in with headache, body aches and fever and is a patient of Dr. Peyman Spaulding. Mr. Chuckie byrd is a 31-year-old male admitted on August 25 with a history of 1 day of diffuse bony aching. He also c omplained of shortness of breath and cough. He had no chest pain, but his temperature was 102. PAST MEDICAL HISTORY: 1. He has a history of acute lymphoblastic leukemia, status post stem cell transplantation. His oth er problems include: 2. Adult-onset diabetes mellitus. 3. Diabetic gastroparesis. 4. Diabetic neuropathy. 5. Benign prostatic hypertrophy. As noted, he came in with a cough and shortness of breath as well as a sore throat. He has diffuse arthralgias he follows up at [facility] for ALL on a 6 month basis and is on maintenance chemother apy. He denies any travel or contact with sick friends that he knows of. He has no nausea or vomit ing. On admission, he was febrile. His white count was 13.1, H and H 11.8 and 35.1, platelet count 180, 000 with 24% neutrophils. BUN and creatinine 20/0.82. Chest x-ray showed right lower lobe pneumonia. A chest CT scan showed increasing alveolar infiltrat es seen in the inferior lower lobe with small foci of patchy alveolar infiltrates seen more superior ly within the right lower lobe. He has small nodular foci of infiltrates within the left lower lobe , including a 1 cm nodular focus. There was no longer infiltrate or atelectasis involving the lingul ar segments of the left upper lobe, but the lung was expanded. The patient therefore comes in with p robable sepsis, possibly underlying community-acquired pneumonia. Patient of Dr. Peyman Spaulding. PAST MEDICAL HISTORY: As outlined. He also has a history of herpes zoster involving the right side of the face. This was following his stem cell transplant. 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 He also had a Port-A-Cath placed which was removed in 2015. SURGICAL HISTORY: Operations as outlined. FAMILY HISTORY: Noncontributory. SOCIAL HISTORY: He is unmarried. He does not smoke, drink. He occasionally uses marijuana. ALLERGIES: MORPHINE. None to or sulfa. REVIEW OF SYSTEMS: Noncontributory. PHYSICAL EXAMINATION: GENERAL: The patient is a well-developed, well-nourished but thin male who is awake, alert, respons anthony, in no acute distress. VITAL SIGNS: Stable. He is afebrile. SKIN: Without generalized rash. HEENT: Within normal limits. NECK: Supple. LYMPH NODES: None palpable. CHEST: Decreased breath sounds at the bases. HEART: Without murmur or gallop. ABDOMEN: Soft, nontender, without organosplenomegaly or masses. EXTREMITIES: Without cyanosis, clubbing, or edema. He has amputation of the left fifth toe. RECTAL AND GENITAL: Deferred. NEUROLOGIC: No focal neurological abnormality. IMPRESSION AND PLAN: A CT scan of the chest was as outlined with increasing alveolar infiltrates in the inferior right lower lobe with other small foci of patchy alveolar infiltrates. Microbiology: He has gram-positive cocci in pairs and chains consistent with I would say strep pneumoniae. His i nfluenza A and B are negative. Patient was begun on vancomycin and also cefepime, which are reasona ble choices. Will await the results of his cultures. I will dictate my findings to the hospitalist and also to Dr. Spaulding. Dictated By: EDMUNDO LOZADA MD, JD/JAMIL Conf#: [id number] DID#: [id number]
[2016-08-26] MEDS: TAMSULOSIN (SR) 0.4 MG CAP PO SCH (21:01)
[2016-08-27] MEDS: ACCU-CHEK XX SCH (02:00)
[2016-08-27] MEDS: HYDROmorphONE 1 MG/ML SYG IV PRN ×5 (02:40→20:59)
[2016-08-27] MEDS: VANCOMYCIN 750 MG in SOD CHLORIDE 0.9% 150 ML IVPB SCH ×2 (04:26→12:34)
[2016-08-27] MEDS: DIPHENHYDRAMINE 50 MG INJ IV PRN ×4 (05:34→20:59)
[2016-08-27 08:00] VITALS: BP 130/97; RESP 16
[2016-08-27 08:04] LABS: ADD SCAN DIFF NO
[2016-08-27 08:07] LABS: EOSINOPHILS # 0.2 10^3/ul (0.0-0.5); EOSINOPHILS % 2.6 % (0.0-7.0); HEMATOCRIT 30.2 % (42.0-52.0); HEMOGLOBIN 9.8 g/dl (14.0-18.0); LYMPHOCYTES # 1.3 10^3/ul (0.8-2.9); LYMPHOCYTES % 17.4 % (15.0-51.0); MEAN CORPUSCULAR HEMOGLOBIN 30.8 pg (29.0-33.0); MEAN CORPUSCULAR HGB CONC 32.5 g/dl (32.0-37.0); MEAN PLATELET VOLUME 10.6 fl (7.4-10.4); MONOCYTE # 0.5 10^3/ul (0.3-0.9); MONOCYTES % 7.1 % (0.0-11.0); NEUTROPHIL # 5.5 10^3/ul (1.6-7.5); NEUTROPHILS % 72.5 % (39.0-77.0); PLATELET COUNT 157 10^3/UL (140-415); RED BLOOD COUNT 3.18 10^6/ul (4.70-6.10); RED CELL DISTRIBUTION WIDTH 12.3 % (11.5-14.5); WHITE BLOOD COUNT 7.6 10^3/ul (4.8-10.8)
[2016-08-27 08:31] LABS: POTASSIUM 4.2 mmol/L (3.5-5.1)
[2016-08-27 08:33] LABS: CREATININE 0.65 mg/dl (0.61-1.24)
[2016-08-27 08:34] LABS: CALCIUM 8.1 mg/dl (8.4-10.2)
[2016-08-27] MEDS: FAMOTIDINE 20 MG TAB PO SCH ×2 (08:56→20:34)
[2016-08-27] MEDS: CEFEPIME 1GM/50 ML (PMX) 50 ML IVPB SCH ×4 (08:56→20:35)
[2016-08-27] MEDS: LINAGLIPTIN 5 MG TABLET PO SCH (08:56)
[2016-08-27] MEDS: GABAPENTIN 100 MG CAP PO SCH ×3 (08:56→20:35)
[2016-08-27] MEDS: ENOXAPARIN 40 MG/0.4 ML SYG SC SCH (08:57)
[2016-08-27] MEDS: INSULIN ASPART [NOVOLOG] 3 ML PEN SC SCH ×7 (09:32→20:39)
[2016-08-27] MEDS: INSULIN GLARGINE [LANtus] 3 ML PEN SC SCH (09:35)
[2016-08-27] MEDS ORDERED: DEXTROSE 50% 50 ML SYRINGE IV PRN ×2 (10:00)
[2016-08-27] MEDS ORDERED: GLUCOSE GEL 15 GRAM TUBE BUCCAL PRN (10:00)
[2016-08-27] MEDS ORDERED: GLUCOSE GEL 15 GRAM TUBE PO PRN ×2 (10:00)
[2016-08-27] MEDS ORDERED: GLUCAGON 1 MG INJ IM PRN (10:00)
--- NOTE | 2016-08-27 10:07 | PN ---
DATE: 08/27/2016 SUBJECTIVE: Patient is feeling well. He has had no shaking chills, no complaints of chest pain or shortness of breath. Benadryl is controlling the patient's pruritus. OBJECTIVE: GENERAL: Patient is a thin but well-developed male in no acute distress. VITAL SIGNS: Temperature 97.1, pulse 101, respirations 16, blood pressure 130/97, pulse oximetry 98 % on room air. SKIN: No ecchymosis, no petechiae or rashes. There are some excoriations on the anterior chest wal l from scratching. HEENT: No mucosal lesions. No scleral icterus. Normocephalic. Pupils equal, round, react to ligh t and accommodation. NECK: Supple, no jugular venous distention or thyroid enlargement. No carotid bruits. CHEST: Clear to auscultation and percussion with some occasional wheezes in the right side which cl ear with cough and deep inspiration. CARDIOVASCULAR: There are no rubs. There is the evidence of previous port location the right anter ior chest. HEART: Sinus tachycardia. No S3, S4 or murmurs. No rubs. GASTROINTESTINAL: Abdomen soft, no masses, no ascites. Bowel sounds are active. EXTREMITIES: Good range of motion. No clubbing, no edema or cyanosis. No palpable cords or Homans sign. NEUROLOGIC: Normal. LABORATORIES: White count today 7600 with an absolute neutrophil count of 5500, hemoglobin 9.8, hem atocrit 30.2, platelet count 157,000. Sodium 132, potassium 4.2, creatinine 0.65, and BUN 17. Blood culture x2 is positive for alpha hemolytic strep. ASSESSMENT: 1. Acute lymphoblastic leukemia, status post stem cell transplant, in remission. 2. Right-sided pneumonia. 3. Alpha hemolytic strep bacteremia. The patient is presently on vancomycin and cefepime. It is l ikely both that the bacteria is sensitive to both of these antibiotics. PLAN: We will check patient's quantitative immunoglobulins to determine if he has hypogammaglobulin emia related to previous stem cell transplant. Dictated By: SARY CASTANON MD, SR/NTS Conf#: [id number] DID#: [id number]
[2016-08-27 10:51] LABS: IMMUNOGLOBULIN A 177 mg/dl (70-400); IMMUNOGLOBULIN G 402 mg/dl (700-1600); IMMUNOGLOBULIN M 49 mg/dl (40-230)
--- NOTE | 2016-08-27 11:11 | PN ---
Date/Time of Note Date/Time of Note DATE: 08/27/16 TIME: 11:09 Assessment/Plan VTE Prophylaxis VTE Prophylaxis Intervention: LMWH Lines/Catheters IV [facility] Type [facility] Peripheral IV Assessment/Plan Chief Complaint/Hosp Course 1. Sepsis secondary to underlying community-acquired pneumonia with underlying gram-positive bacteremia. No evidence of any septic shock. The patient will be continued on antibiotics as per infectious diseases. 2. Type 2 diabetes mellitus. Hemoglobin A1c pending [sent out]. The patient will be continued on sliding scale insulin along with Lantus insulin and premeal insulin. 3. Normocytic, normochromic anemia most probably anemia of chronic disease. We will monitor the hemoglobin and hematocrit closely. 4. Body pain, most probably secondary to underlying infectious process. The patient will be provided with adequate pain control. 5. Diabetic neuropathy. The patient will be continued on gabapentin. 6. Benign prostatic hypertrophy. The patient will be continued on Flomax. 7. Acute lymphoblastic leukemia. Status post stem cell transplant. Being followed by oncology. 8. Diabetic gastroparesis. We will monitor the patient for diabetic gastroparesis. If the patient has significant symptoms, the patient will be started on prokinetics. 9. Fluids, electrolytes, and nutrition. Carbohydrate controlled diet. 10. DVT prophylaxis. Subcutaneous Lovenox. 11. Gastrointestinal prophylaxis. Histamine 2 receptor blockers. 12. Plan. Continue antibiotics as per infectious diseases. Case discussed with Dr. Lewis. Problems: Subjective 24 Hr Interval Summary Free Text/Dictation The patient remains afebrile. Denies any diarrhea. Exam/Review of Systems Vital Signs Vitals Vital Signs Date Time Temp Pulse Resp B/P Pulse Ox O2 Delivery O2 Flow Rate FiO2 08/27/16 08:00 Nasal Cannula 2.0 08/27/16 08:00 97.7 101 16 130/97 98 Intake and Output 08/26/16 08/26/16 08/27/16 15:00 23:00 07:00 Intake Total 200 ml 2840 ml 2050 ml Output Total 400 ml 800 ml Balance 200 ml 2440 ml 1250 ml Exam GENERAL: This is a thin, frail-looking male patient lying in bed in no apparent distress. HEENT: Head normocephalic and atraumatic. Eyes: Anicteric sclerae. Conjunctivae clear. ENT: Nasal septum is midline. Oral mucosa is dry. NECK: Supple. JVD noticed. RESPIRATORY: Bilaterally diminished breath sounds. No use of accessory muscles of respiration. CARDIAC: Regular rate and rhythm. GASTROINTESTINAL: S1, S2 heard. ABDOMEN: Scaphoid. Muscle wasting. Nontender. Bowel sounds positive in all 4 quadrants. GENITOURINARY: Deferred. EXTREMITIES: No cyanosis, no clubbing, no edema. Peripheral pulses are palpable. NEUROLOGIC: The patient is awake, alert and oriented. Cranial nerves are grossly intact. Results Result Diagram: 08/27/16 0750 08/27/16 0750 Results 24 hrs Laboratory Tests Test 08/26/16 11:18 08/26/16 11:45 08/26/16 17:12 08/26/16 20:58 Vancomycin Level Trough 15.8 Bedside Glucose 309 H 149 73 Test 08/27/16 02:43 08/27/16 07:50 08/27/16 08:54 Bedside Glucose 216 187 White Blood Count 7.6 Red Blood Count 3.18 L Hemoglobin 9.8 L Hematocrit 30.2 L Mean Corpuscular Volume 95.0 Mean Corpuscular Hemoglobin 30.8 Mean Corpuscular Hemoglobin Concent 32.5 Red Cell Distribution Width 12.3 Platelet Count 157 Mean Platelet Volume 10.6 H Neutrophils % 72.5 Lymphocytes % 17.4 Monocytes % 7.1 Eosinophils % 2.6 Basophils % 0.0 Nucleated Red Blood Cells % 0.0 Neutrophils # 5.5 Lymphocytes # 1.3 Monocytes # 0.5 Eosinophils # 0.2 Basophils # 0.0 Nucleated Red Blood Cells # 0.0 Sodium Level 137 Potassium Level 4.2 Chloride Level 103 Carbon Dioxide Level 24 Anion Gap 14 Blood Urea Nitrogen 17 Creatinine 0.65 Glucose Level 191 Calcium Level 8.1 L Immunoglobulin A 177 Immunoglobulin G 402 L Immunoglobulin M 49 Medications Medications Current Medications Lorazepam (Ativan) 0.5 mg Q6H PRN IV ANXIETY; Start 08/25/16 at 14:30 Ondansetron HCl (Zofran Inj) 4 mg Q6H PRN IV NAUSEA AND/OR VOMITING; Start at 14:30 Acetaminophen (Tylenol Tab) 650 mg Q6H PRN PO PAIN LEVEL 1-3 OR FEVER; Start at 14:30 Acetaminophen/ Hydrocodone Bitart ([place] (5/325)) 2 tab Q6H PRN PO PAIN LEVEL 7 -10 Last administered on 08/26/16 20:59; Admin Dose 2 TAB; Start 08/25/16 at 14 :30 Hydromorphone HCl (Dilaudid) 1 mg Q4H PRN IV PAIN LEVEL 7-10 Last administered on 08/27/16 08:03; Admin Dose 1 MG; Start 08/25/16 at 14:30 Magnesium Hydroxide (Milk Of Mag) 30 ml DAILY PRN PO CONSTIPATION; Start at 14:30 Bisacodyl (Dulcolax) 5 mg DAILY PRN PO CONSTIPATION; Start 08/25/16 at 14:30 Famotidine (Pepcid) 20 mg Q12 PO Last administered on 08/27/16 08:56; Admin Dose 20 MG; Start 08/25/16 at 21:00 Enoxaparin Sodium (Lovenox) 40 mg DAILY SC Last administered on 08/27/16 08:57 ; Admin Dose 40 MG; Start 08/26/16 at 09:00 Gabapentin (Neurontin) 100 mg TID PO Last administered on 08/27/16 08:56; Admin Dose 100 MG; Start 08/25/16 at 21:00 Linagliptin (Tradjenta) 5 mg DAILY PO Last administered on 08/27/16 08:56; Admin Dose 5 MG; Start 08/26/16 at 09:00 Tamsulosin HCl 0.4 mg 0.4 mg HS PO Last administered on 08/26/16 21:01; Admin Dose 0.4 MG; Start 08/25/16 at 21:00 Cefepime HCl (Maxipime 1gm/50 ml (Pmx)) 50 ml @ 100 mls/hr Q12 IVPB Last administered on 08/26/16 21:01; Admin Dose 100 MLS/HR; Start 08/25/16 at 21:00 Diagnostic Test (Pha) 1 ea 1 ea 02 XX Last administered on 08/27/16 02:00; Admin Dose 1 EA; Start 08/26/16 at 02:00 Vancomycin HCl 750 mg/Sodium Chloride 150 ml @ 75 mls/hr Q8H IVPB Last administered on 08/27/16 04:26; Admin Dose 75 MLS/HR; Start 08/25/16 at 20:00 Sodium Chloride (NS) 1,000 ml @ 100 mls/hr Q10H IV Last administered on t 21:03; Admin Dose 100 MLS/HR; Start 08/25/16 at 17:30 Insulin Glargine (Lantus) 18 unit QAM SC Last administered on 08/27/16 09:35; Admin Dose 18 UNIT; Start 08/27/16 at 09:00 Miscellaneous Information 1 ea NOTE XX ; Start 08/27/16 at 10:00 Glucose (Glutose) 15 gm Q15M PRN PO DECREASED GLUCOSE; Start 08/27/16 at 10:00 Glucose (Glutose) 22.5 gm Q15M PRN PO DECREASED GLUCOSE; Start 08/27/16 at 10: 00 Dextrose (D50w Syringe) 25 ml Q15M PRN IV DECREASED GLUCOSE; Start 08/27/16 at 10:00 Dextrose (D50w Syringe) 50 ml Q15M PRN IV DECREASED GLUCOSE; Start 08/27/16 at 10:00 Glucagon (Glucagen) 1 mg Q15M PRN IM DECREASED GLUCOSE; Start 08/27/16 at 10:00 Glucose (Glutose) 15 gm Q15M PRN BUCCAL DECREASED GLUCOSE; Start 08/27/16 at 10 :00 Diphenhydramine HCl (Benadryl) 25 mg Q4H PRN IV ITCHING; Start 08/27/16 at 10: 00 MARIANA CARRASCO NP August 27, 2016 11:11
[2016-08-27] MEDS: SOD CHLORIDE 0.9% 1,000 ML IV SCH ×2 (11:12→19:30)
--- NOTE | 2016-08-27 14:06 | PN ---
DATE: 08/27/2016 SUBJECTIVE: No acute changes, no fevers. The patient is alert, denies pain, discomfort, looks comf ortable. LABORATORY DATA: WBC today 7.6, no shift, no bands. BUN 17, creatinine 0.65. MICROBIOLOGY: Blood culture growing alpha-hemolytic strep species and strep pneumoniae. DIAGNOSTICS: CT of the chest on admission revealed increasing alveolar infiltrate within the inferi or right lower lobe as well as small nodular foci of infiltrate within the left lower lobe. No effu isaac or pneumothorax. ANTIMICROBIALS: The patient is on 1. IV vancomycin. 2. Cefepime. PHYSICAL EXAMINATION: GENERAL: Well-developed, middle-aged man who is alert, in no distress. HEENT: Atraumatic, normocephalic. Sclerae are anicteric. Buccal mucosa pink. NECK: Supple. CHEST: Rise symmetrical. Breath sounds diminished at the bases. HEART: S1, S2. ABDOMEN: Soft, bowel sounds present. EXTREMITIES: Without cyanosis. ASSESSMENT: 1. Sepsis with streptococcal bacteremia, likely secondary to #2. 2. Pneumonia. 3. History of ALL, status post stem cell transplantation, currently in remission. 4. Diabetes with diabetic gastroparesis. PLAN: The patient remains stable. We will discontinue vancomycin. Continue cefepime for now. Fol low chest x-ray. Follow oncology recommendations and repeat blood culture. Dictated By: RUSSELL NORRIS FLIGHT AGENT for EDMUNDO LOZADA MD NI/NTS Conf#: [id number] DID#: [id number]
[2016-08-27 19:05] VITALS: BP 134/93; RESP 18
[2016-08-27] MEDS: TAMSULOSIN (SR) 0.4 MG CAP PO SCH (20:34)
[2016-08-27] MEDS: HYDROCODONE/APAP (5/325) TAB PO PRN (23:10)
[2016-08-28] MEDS: DIPHENHYDRAMINE 50 MG INJ IV PRN ×6 (01:12→21:28)
[2016-08-28] MEDS: HYDROmorphONE 1 MG/ML SYG IV PRN ×6 (01:13→21:28)
[2016-08-28] MEDS: ACCU-CHEK XX SCH ×2 (02:28→23:55)
[2016-08-28] MEDS: SOD CHLORIDE 0.9% 1,000 ML IV SCH ×2 (05:12→16:03)
[2016-08-28 05:37] LABS: ADD SCAN DIFF NO
[2016-08-28 05:45] LABS: BASOPHILS % 0.1 % (0.0-2.0); EOSINOPHILS # 0.1 10^3/ul (0.0-0.5); EOSINOPHILS % 1.2 % (0.0-7.0); HEMATOCRIT 30.6 % (42.0-52.0); HEMOGLOBIN 9.8 g/dl (14.0-18.0); LYMPHOCYTES # 1.6 10^3/ul (0.8-2.9); LYMPHOCYTES % 21.1 % (15.0-51.0); MEAN CORPUSCULAR HEMOGLOBIN 30.2 pg (29.0-33.0); MEAN CORPUSCULAR VOLUME 94.2 fl (82.0-101.0); MEAN PLATELET VOLUME 10.5 fl (7.4-10.4); MONOCYTE # 0.6 10^3/ul (0.3-0.9); MONOCYTES % 7.3 % (0.0-11.0); NEUTROPHIL # 5.4 10^3/ul (1.6-7.5); NEUTROPHILS % 69.9 % (39.0-77.0); PLATELET COUNT 171 10^3/UL (140-415); RED BLOOD COUNT 3.25 10^6/ul (4.70-6.10); RED CELL DISTRIBUTION WIDTH 12.2 % (11.5-14.5); WHITE BLOOD COUNT 7.7 10^3/ul (4.8-10.8)
[2016-08-28 06:09] LABS: ALBUMIN 2.9 g/dl (3.3-4.9)
[2016-08-28 06:10] LABS: POTASSIUM 3.8 mmol/L (3.5-5.1)
[2016-08-28 06:12] LABS: ALBUMIN/GLOBULIN RATIO 0.96; CALCIUM 8.5 mg/dl (8.4-10.2); CREATININE 0.69 mg/dl (0.61-1.24); TOTAL PROTEIN 5.9 g/dl (6.1-8.1)
[2016-08-28] MEDS: INSULIN ASPART [NOVOLOG] 3 ML PEN SC SCH ×7 (07:50→21:00)
[2016-08-28 08:06] VITALS: BP 137/93; RESP 16
[2016-08-28] MEDS: CEFEPIME 1GM/50 ML (PMX) 50 ML IVPB SCH ×2 (09:21→21:11)
[2016-08-28] MEDS: LINAGLIPTIN 5 MG TABLET PO SCH (09:22)
[2016-08-28] MEDS: GABAPENTIN 100 MG CAP PO SCH ×3 (09:22→21:11)
[2016-08-28] MEDS: FAMOTIDINE 20 MG TAB PO SCH ×2 (09:22→21:11)
[2016-08-28] MEDS: INSULIN GLARGINE [LANtus] 3 ML PEN SC SCH (09:24)
[2016-08-28] MEDS: ENOXAPARIN 40 MG/0.4 ML SYG SC SCH (09:25)
--- NOTE | 2016-08-28 11:21 | PN ---
Date/Time of Note Date/Time of Note DATE: 08/28/16 TIME: 11:16 Assessment/Plan VTE Prophylaxis VTE Prophylaxis Intervention: ambulation Lines/Catheters IV Catheter Type (from Nrsg): Peripheral IV Assessment/Plan Assessment/Plan Pt is improving with present antibiotics. QIG's showed mildly low IgG and normal IgA, IgM. No IVIG suggested now since he is getting better. Continue current plans. Subjective 24 Hr Interval Summary Free Text/Dictation Pt is feeling better. No fever. Exam/Review of Systems Vital Signs Vitals Vital Signs Date Time Temp Pulse Resp B/P Pulse Ox O2 Delivery O2 Flow Rate FiO2 08/28/16 08:06 97.3 96 16 137/93 97 08/27/16 08:00 Nasal Cannula 2.0 Intake and Output 08/27/16 08/27/16 08/28/16 15:00 23:00 07:00 Intake Total 800 ml 1670 ml 1650 ml Output Total 900 ml Balance 800 ml 1670 ml 750 ml Exam Constitutional: alert Head: normocephalic Neck: supple Respiratory: clear to auscultation Cardiovascular: regular rate and rhythm Results Result Diagram: 08/28/16 0501 08/28/16 0501 Results 24 hrs Laboratory Tests Test 08/27/16 12:32 08/27/16 17:46 08/27/16 20:23 08/28/16 01:10 Bedside Glucose 218 111 213 138 Test 08/28/16 05:01 08/28/16 07:51 08/28/16 08:04 08/28/16 08:36 White Blood Count 7.7 Red Blood Count 3.25 L Hemoglobin 9.8 L Hematocrit 30.6 L Mean Corpuscular Volume 94.2 Mean Corpuscular Hemoglobin 30.2 Mean Corpuscular Hemoglobin Concent 32.0 Red Cell Distribution Width 12.2 Platelet Count 171 Mean Platelet Volume 10.5 H Neutrophils % 69.9 Lymphocytes % 21.1 Monocytes % 7.3 Eosinophils % 1.2 Basophils % 0.1 Nucleated Red Blood Cells % 0.0 Neutrophils # 5.4 Lymphocytes # 1.6 Monocytes # 0.6 Eosinophils # 0.1 Basophils # 0.0 Nucleated Red Blood Cells # 0.0 Sodium Level 138 Potassium Level 3.8 Chloride Level 104 Carbon Dioxide Level 25 Anion Gap 13 Blood Urea Nitrogen 13 Creatinine 0.69 Glucose Level 72 # Calcium Level 8.5 Magnesium Level 1.8 Total Bilirubin 0.0 L Direct Bilirubin 0.00 Indirect Bilirubin 0.0 Aspartate Amino Transf (AST/SGOT) 18 Alanine Aminotransferase (ALT/SGPT) 25 Alkaline Phosphatase 67 Total Protein 5.9 L Albumin 2.9 L Globulin 3.00 Albumin/Globulin Ratio 0.96 Lab Scanned Report REFERENCE LAB Bedside Glucose 67 L 69 L Test 08/28/16 09:10 08/28/16 09:13 Lab Scanned Report REFERENCE LAB Bedside Glucose 83 Medications Medications Current Medications Lorazepam (Ativan) 0.5 mg Q6H PRN IV ANXIETY; Start 08/25/16 at 14:30 Ondansetron HCl (Zofran Inj) 4 mg Q6H PRN IV NAUSEA AND/OR VOMITING; Start at 14:30 Acetaminophen (Tylenol Tab) 650 mg Q6H PRN PO PAIN LEVEL 1-3 OR FEVER; Start at 14:30 Acetaminophen/ Hydrocodone Bitart ([place] (5/325)) 2 tab Q6H PRN PO PAIN LEVEL 7 -10 Last administered on 08/27/16 23:10; Admin Dose 2 TAB; Start 08/25/16 at 14 :30 Hydromorphone HCl (Dilaudid) 1 mg Q4H PRN IV PAIN LEVEL 7-10 Last administered on 08/28/16 09:17; Admin Dose 1 MG; Start 08/25/16 at 14:30 Magnesium Hydroxide (Milk Of Mag) 30 ml DAILY PRN PO CONSTIPATION; Start at 14:30 Bisacodyl (Dulcolax) 5 mg DAILY PRN PO CONSTIPATION; Start 08/25/16 at 14:30 Famotidine (Pepcid) 20 mg Q12 PO Last administered on 08/28/16 09:22; Admin Dose 20 MG; Start 08/25/16 at 21:00 Enoxaparin Sodium (Lovenox) 40 mg DAILY SC Last administered on 08/28/16 09:25 ; Admin Dose 40 MG; Start 08/26/16 at 09:00 Gabapentin (Neurontin) 100 mg TID PO Last administered on 08/28/16 09:22; Admin Dose 100 MG; Start 08/25/16 at 21:00 Linagliptin (Tradjenta) 5 mg DAILY PO Last administered on 08/28/16 09:22; Admin Dose 5 MG; Start 08/26/16 at 09:00 Tamsulosin HCl 0.4 mg 0.4 mg HS PO Last administered on 08/27/16 20:34; Admin Dose 0.4 MG; Start 08/25/16 at 21:00 Cefepime HCl (Maxipime 1gm/50 ml (Pmx)) 50 ml @ 100 mls/hr Q12 IVPB Last administered on 08/28/16 09:21; Admin Dose 100 MLS/HR; Start 08/25/16 at 21:00 Diagnostic Test (Pha) 1 ea 1 ea 02 XX Last administered on 08/28/16 02:28; Admin Dose 1 EA; Start 08/26/16 at 02:00 Sodium Chloride (NS) 1,000 ml @ 100 mls/hr Q10H IV Last administered on 05:12; Admin Dose 100 MLS/HR; Start 08/25/16 at 17:30 Insulin Glargine (Lantus) 18 unit QAM SC Last administered on 08/28/16 09:24; Admin Dose 18 UNIT; Start 08/27/16 at 09:00 Miscellaneous Information 1 ea NOTE XX ; Start 08/27/16 at 10:00 Glucose (Glutose) 15 gm Q15M PRN PO DECREASED GLUCOSE; Start 08/27/16 at 10:00 Glucose (Glutose) 22.5 gm Q15M PRN PO DECREASED GLUCOSE; Start 08/27/16 at 10: 00 Dextrose (D50w Syringe) 25 ml Q15M PRN IV DECREASED GLUCOSE; Start 08/27/16 at 10:00 Dextrose (D50w Syringe) 50 ml Q15M PRN IV DECREASED GLUCOSE; Start 08/27/16 at 10:00 Glucagon (Glucagen) 1 mg Q15M PRN IM DECREASED GLUCOSE; Start 08/27/16 at 10:00 Glucose (Glutose) 15 gm Q15M PRN BUCCAL DECREASED GLUCOSE; Start 08/27/16 at 10 :00 Diphenhydramine HCl (Benadryl) 25 mg Q4H PRN IV ITCHING Last administered on 09:20; Admin Dose 25 MG; Start 08/27/16 at 10:00 VIELKA WELLINGTON MD August 28, 2016 11:21
--- NOTE | 2016-08-28 13:34 | PN ---
DATE: 08/28/2016 SUBJECTIVE: No acute changes. The patient is alert, feels good and asking when he can go home. He is in no distress, no fevers overnight. LABORATORY DATA: WBC today 7.7, no shift, no bands. BUN 13, creatinine 0.69. MICROBIOLOGY: Blood culture on admission grew strep pneumoniae. Repeat blood cultures pending. ANTIMICROBIALS: Cefepime. PHYSICAL EXAMINATION: GENERAL: Well-developed, middle-aged man who is alert, in no distress. HEENT: Head atraumatic, normocephalic. Sclerae anicteric. Buccal mucosa pink. NECK: Supple, trachea midline. CHEST: Rise symmetrical. Breath sounds clear. HEART: S1, S2. ABDOMEN: Soft, bowel sounds present. EXTREMITIES: Without cyanosis. ASSESSMENT: 1. Resolving sepsis. 2. Streptococcal bacteremia secondary to #3. 3. Pneumonia. 4. Diabetes with diabetic gastroparesis. 5. ALL, status post stem cell transplantation, currently in remission. PLAN: The patient remains stable. Pending repeat blood cultures. Continue antibiotics. Anticipat e placement of a PICC line once repeat blood culture is negative to complete 2 weeks IV antibiotics at home. Dictated By: RUSSELL NORRIS BACTERIOLOGIST DAIRY for EDMUNDO WORRELL/JAMIL Conf#: [id number] DID#: [id number]
--- NOTE | 2016-08-28 13:53 | PN ---
Date/Time of Note Date/Time of Note DATE: 08/28/16 TIME: 13:51 Assessment/Plan VTE Prophylaxis VTE Prophylaxis Intervention: SCD's Lines/Catheters IV Catheter Type (from Nrs): Peripheral IV Assessment/Plan Chief Complaint/Hosp Course Assessment and plan 1. Sepsis secondary to underlying community-acquired pneumonia with underlying gram-positive bacteremia. No evidence of any septic shock. The patient will be continued on antibiotics as per infectious diseases. 2. Type 2 diabetes mellitus. Hemoglobin A1c pending, The patient will be continued on sliding scale insulin along with Lantus insulin and premeal insulin. 3. Normocytic, normochromic anemia most probably anemia of chronic disease. We will monitor the hemoglobin and hematocrit closely. 4. Body pain, most probably secondary to underlying infectious process. The patient will be provided with adequate pain control. 5. Diabetic neuropathy. The patient will be continued on gabapentin. 6. Benign prostatic hypertrophy. The patient will be continued on Flomax. 7. 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 Being followed by oncology. 8. Diabetic gastroparesis. We will monitor the patient for diabetic gastroparesis. If the patient has significant symptoms, the patient will be started on prokinetics. - DVT prophylaxis. Subcutaneous Lovenox. - Gastrointestinal prophylaxis. Histamine 2 receptor blockers. Disposition plan. antibiotics as per infectious diseases. Problems: Subjective 24 Hr Interval Summary Free Text/Dictation Patient denies any chest pain or shortness of breath Tolerating oral intake No nausea vomiting diarrhea Exam/Review of Systems Vital Signs Vitals Vital Signs Date Time Temp Pulse Resp B/P Pulse Ox O2 Delivery O2 Flow Rate FiO2 08/28/16 08:06 97.3 96 16 137/93 97 08/27/16 08:00 Nasal Cannula 2.0 Intake and Output 08/27/16 08/27/16 08/28/16 15:00 23:00 07:00 Intake Total 800 ml 1670 ml 1650 ml Output Total 900 ml Balance 800 ml 1670 ml 750 ml Exam General: The patient is well-developed, Not in acute distress. HEENT: Atraumatic, normocephalic. The pupils are equal and round . Neck: Supple with full range of motion. Chest: Normal expansion of the thorax during inspiration Lungs: Clear to auscultation bilaterally Heart: Normal S1-S2, Regular rhythm and rate. Abdomen: Soft , nontender, nondistended , bowel sounds are present. Extremities: Normal to inspection, no edema no cyanosis Neurologic: Normal mental status,The patient is awake, alert and oriented . Results Result Diagram: 08/28/16 0501 08/28/16 0501 Results 24 hrs Laboratory Tests Test 08/27/16 17:46 08/27/16 20:23 08/28/16 01:10 08/28/16 05:01 Bedside Glucose 111 213 138 White Blood Count 7.7 Red Blood Count 3.25 L Hemoglobin 9.8 L Hematocrit 30.6 L Mean Corpuscular Volume 94.2 Mean Corpuscular Hemoglobin 30.2 Mean Corpuscular Hemoglobin Concent 32.0 Red Cell Distribution Width 12.2 Platelet Count 171 Mean Platelet Volume 10.5 H Neutrophils % 69.9 Lymphocytes % 21.1 Monocytes % 7.3 Eosinophils % 1.2 Basophils % 0.1 Nucleated Red Blood Cells % 0.0 Neutrophils # 5.4 Lymphocytes # 1.6 Monocytes # 0.6 Eosinophils # 0.1 Basophils # 0.0 Nucleated Red Blood Cells # 0.0 Sodium Level 138 Potassium Level 3.8 Chloride Level 104 Carbon Dioxide Level 25 Anion Gap 13 Blood Urea Nitrogen 13 Creatinine 0.69 Glucose Level 72 # Calcium Level 8.5 Magnesium Level 1.8 Total Bilirubin 0.0 L Direct Bilirubin 0.00 Indirect Bilirubin 0.0 Aspartate Amino Transf (AST/SGOT) 18 Alanine Aminotransferase (ALT/SGPT) 25 Alkaline Phosphatase 67 Total Protein 5.9 L Albumin 2.9 L Globulin 3.00 Albumin/Globulin Ratio 0.96 Test 08/28/16 07:51 08/28/16 08:04 08/28/16 08:36 08/28/16 09:10 Lab Scanned Report REFERENCE LAB REFERENCE LAB Bedside Glucose 67 L 69 L Test 08/28/16 09:13 08/28/16 12:15 Bedside Glucose 83 127 Medications Medications Current Medications Lorazepam (Ativan) 0.5 mg Q6H PRN IV ANXIETY; Start 08/25/16 at 14:30 Ondansetron HCl (Zofran Inj) 4 mg Q6H PRN IV NAUSEA AND/OR VOMITING; Start at 14:30 Acetaminophen (Tylenol Tab) 650 mg Q6H PRN PO PAIN LEVEL 1-3 OR FEVER; Start at 14:30 Acetaminophen/ Hydrocodone Bitart ([place] (5/325)) 2 tab Q6H PRN PO PAIN LEVEL 7 -10 Last administered on 08/27/16 23:10; Admin Dose 2 TAB; Start 08/25/16 at 14 :30 Hydromorphone HCl (Dilaudid) 1 mg Q4H PRN IV PAIN LEVEL 7-10 Last administered on 08/28/16 13:21; Admin Dose 1 MG; Start 08/25/16 at 14:30 Magnesium Hydroxide (Milk Of Mag) 30 ml DAILY PRN PO CONSTIPATION; Start at 14:30 Bisacodyl (Dulcolax) 5 mg DAILY PRN PO CONSTIPATION; Start 08/25/16 at 14:30 Famotidine (Pepcid) 20 mg Q12 PO Last administered on 08/28/16 09:22; Admin Dose 20 MG; Start 08/25/16 at 21:00 Enoxaparin Sodium (Lovenox) 40 mg DAILY SC Last administered on 08/28/16 09:25 ; Admin Dose 40 MG; Start 08/26/16 at 09:00 Gabapentin (Neurontin) 100 mg TID PO Last administered on 08/28/16 13:21; Admin Dose 100 MG; Start 08/25/16 at 21:00 Linagliptin (Tradjenta) 5 mg DAILY PO Last administered on 08/28/16 09:22; Admin Dose 5 MG; Start 08/26/16 at 09:00 Tamsulosin HCl 0.4 mg 0.4 mg HS PO Last administered on 08/27/16 20:34; Admin Dose 0.4 MG; Start 08/25/16 at 21:00 Cefepime HCl (Maxipime 1gm/50 ml (Pmx)) 50 ml @ 100 mls/hr Q12 IVPB Last administered on 08/28/16 09:21; Admin Dose 100 MLS/HR; Start 08/25/16 at 21:00 Diagnostic Test (Pha) 1 ea 1 ea 02 XX Last administered on 08/28/16 02:28; Admin Dose 1 EA; Start 08/26/16 at 02:00 Sodium Chloride (NS) 1,000 ml @ 100 mls/hr Q10H IV Last administered on 05:12; Admin Dose 100 MLS/HR; Start 08/25/16 at 17:30 Insulin Glargine (Lantus) 18 unit QAM SC Last administered on 08/28/16 09:24; Admin Dose 18 UNIT; Start 08/27/16 at 09:00 Miscellaneous Information 1 ea NOTE XX ; Start 08/27/16 at 10:00 Glucose (Glutose) 15 gm Q15M PRN PO DECREASED GLUCOSE; Start 08/27/16 at 10:00 Glucose (Glutose) 22.5 gm Q15M PRN PO DECREASED GLUCOSE; Start 08/27/16 at 10: 00 Dextrose (D50w Syringe) 25 ml Q15M PRN IV DECREASED GLUCOSE; Start 08/27/16 at 10:00 Dextrose (D50w Syringe) 50 ml Q15M PRN IV DECREASED GLUCOSE; Start 08/27/16 at 10:00 Glucagon (Glucagen) 1 mg Q15M PRN IM DECREASED GLUCOSE; Start 08/27/16 at 10:00 Glucose (Glutose) 15 gm Q15M PRN BUCCAL DECREASED GLUCOSE; Start 08/27/16 at 10 :00 Diphenhydramine HCl (Benadryl) 25 mg Q4H PRN IV ITCHING Last administered on 13:24; Admin Dose 25 MG; Start 08/27/16 at 10:00 ENMANUEL ROSENBERG MD August 28, 2016 13:53
[2016-08-28 20:00] VITALS: BP 128/80; RESP 20
[2016-08-28] MEDS: TAMSULOSIN (SR) 0.4 MG CAP PO SCH (21:11)
[2016-08-28] MEDS: HYDROCODONE/APAP (5/325) TAB PO PRN (23:27)
[2016-08-29] MEDS: HYDROmorphONE 1 MG/ML SYG IV PRN ×6 (01:29→21:45)
[2016-08-29] MEDS: SOD CHLORIDE 0.9% 1,000 ML IV SCH ×4 (01:30→16:50)
[2016-08-29] MEDS: DIPHENHYDRAMINE 50 MG INJ IV PRN ×6 (01:30→21:45)
[2016-08-29] MEDS: INSULIN ASPART [NOVOLOG] 3 ML PEN SC SCH ×7 (07:50→21:00)
[2016-08-29] MEDS: INSULIN GLARGINE [LANtus] 3 ML PEN SC SCH (08:16)
[2016-08-29] MEDS: GABAPENTIN 100 MG CAP PO SCH ×3 (08:17→21:45)
[2016-08-29] MEDS: LINAGLIPTIN 5 MG TABLET PO SCH (08:17)
[2016-08-29] MEDS: FAMOTIDINE 20 MG TAB PO SCH ×2 (08:17→21:45)
[2016-08-29] MEDS: ENOXAPARIN 40 MG/0.4 ML SYG SC SCH (08:19)
[2016-08-29] MEDS: CEFEPIME 1GM/50 ML (PMX) 50 ML IVPB SCH (08:24)
[2016-08-29 08:26] VITALS: BP 141/91; RESP 20
--- NOTE | 2016-08-29 10:18 | PN ---
DATE: 08/29/2016 HEMATOLOGY/ONCOLOGY PROGRESS NOTE SUBJECTIVE: The patient states he is feeling better. No complaints of chest pain, no cough. No sh ortness of breath. Appetite is good. He has had no shaking chills, no abdominal pain, nausea or vomiting. OBJECTIVE: GENERAL: The patient is a well-developed, well-nourished male who is in no acute distress. VITAL SIGNS: Temperature 97.4, pulse 89 per minute and regular, respirations 20, blood pressure 141 /94 and pulse oximetry is 99% on room air. SKIN: No ecchymoses, no petechiae or rashes. HEENT: Normocephalic. No evidence of trauma. The pupils are equal, round, react to light and acco mmodation. Extraocular movements are intact. There is no scleral icterus. Oral mucosa is moist wi thout lesions. Tongue is well papillated. No gingival hyperplasia, no hypertrophy of Waldeyer's ri ng. NECK: Supple, no jugular venous distention or thyroid enlargement. CHEST: Clear to auscultation and percussion. No rhonchi, wheezes, rales or rubs. There is no pain on percussion of spine, sternum, clavicles or ribs. HEART: Regular sinus rhythm. No S3, S4 or murmurs. No rubs. ABDOMEN: Soft, no masses, no ascites. Bowel sounds are active. EXTREMITIES: Good range of motion. No clubbing, no edema or cyanosis. No palpable cords or Homans sign. NEUROLOGIC: Normal. LABORATORY DATA: No CBC has been done this morning. Same is true for chemistries. Quantitative immunoglobulins reveal a decreased IgG of 402, IgA is 177, IgM is 49. IMPRESSION: 1. Acute lymphoblastic leukemia in remission status post stem cell transplant. 2. Right-sided pneumonia, resolving. 3. Alpha-hemolytic strep. Sensitive to cefotaxime, clindamycin, erythromycin, penicillin and vanco mycin. The patient is receiving appropriate antibiotic therapy. Dictated By: SARY CASTANON MD, SR/NTS Conf#: [id number] DID#: [id number]
[2016-08-29] MEDS ORDERED: LIDOCAINE 1% (MPF) 5 ML VIAL SC ONE ×2 (10:30→16:30)
--- NOTE | 2016-08-29 10:44 | PN ---
Date/Time of Note Date/Time of Note DATE: 08/29/16 TIME: 10:42 Assessment/Plan VTE Prophylaxis VTE Prophylaxis Intervention: SCD's Lines/Catheters IV Catheter Type (from Nrsg): Peripheral IV Assessment/Plan Chief Complaint/Hosp Course Assessment and plan 1. Sepsis secondary to underlying community-acquired pneumonia with underlying gram-positive bacteremia. No evidence of any septic shock. The patient will be continued on antibiotics as per infectious diseases. PICC line placement as per ID recommendation for home IV antibiotics 2. Type 2 diabetes mellitus. With an episode of hypoglycemia, the patient will be continued on sliding scale insulin along with Lantus insulin and premeal insulin. 3. Normocytic, normochromic anemia most probably anemia of chronic disease. We will monitor the hemoglobin and hematocrit closely. 4. Body pain, most probably secondary to underlying infectious process. The patient will be provided with adequate pain control. 5. Diabetic neuropathy. The patient will be continued on gabapentin. 6. Benign prostatic hypertrophy. The patient will be continued on Flomax. 7. 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 Being followed by oncology. 8. Diabetic gastroparesis. We will monitor the patient for diabetic gastroparesis. If the patient has significant symptoms, the patient will be started on prokinetics. - DVT prophylaxis. Subcutaneous Lovenox. - Gastrointestinal prophylaxis. Histamine 2 receptor blockers. Disposition plan. antibiotics as per infectious diseases. PICC line placement as per ID recommendation reproduction production manager to set up home health for IV antibiotic, Rocephin 1 g IV daily 2 weeks Problems: Subjective 24 Hr Interval Summary Free Text/Dictation Denies of any chest pain or shortness of breath Tolerating oral intake Ambulating with without any difficulty Exam/Review of Systems Vital Signs Vitals Vital Signs Date Time Temp Pulse Resp B/P Pulse Ox O2 Delivery O2 Flow Rate FiO2 08/29/16 08:26 97.4 89 20 141/91 99 08/27/16 08:00 Nasal Cannula 2.0 Intake and Output 08/28/16 08/28/16 08/29/16 15:00 23:00 07:00 Intake Total 400 ml 1700 ml 2700 ml Output Total 1800 ml 1150 ml Balance 400 ml -100 ml 1550 ml Exam General: The patient is well-developed, Not in acute distress. HEENT: Atraumatic, normocephalic. The pupils are equal and round . Neck: Supple with full range of motion. Chest: Normal expansion of the thorax during inspiration Lungs: Clear to auscultation bilaterally Heart: Normal S1-S2, Regular rhythm and rate. Abdomen: Soft , nontender, nondistended , bowel sounds are present. Extremities: Normal to inspection, no edema no cyanosis Neurologic: Normal mental status,The patient is awake, alert and oriented . Results Result Diagram: 08/28/16 0501 08/28/16 0501 Results 24 hrs Laboratory Tests Test 08/28/16 12:15 08/28/16 15:16 08/28/16 16:02 08/28/16 17:19 Bedside Glucose 127 51 L 112 74 Test 08/28/16 21:09 08/29/16 08:12 Bedside Glucose 128 99 Medications Medications Current Medications Lorazepam (Ativan) 0.5 mg Q6H PRN IV ANXIETY; Start 08/25/16 at 14:30 Ondansetron HCl (Zofran Inj) 4 mg Q6H PRN IV NAUSEA AND/OR VOMITING; Start at 14:30 Acetaminophen (Tylenol Tab) 650 mg Q6H PRN PO PAIN LEVEL 1-3 OR FEVER; Start at 14:30 Acetaminophen/ Hydrocodone Bitart ([place] (5/325)) 2 tab Q6H PRN PO PAIN LEVEL 7 -10 Last administered on 08/28/16 23:27; Admin Dose 2 TAB; Start 08/25/16 at 14 :30 Hydromorphone HCl (Dilaudid) 1 mg Q4H PRN IV PAIN LEVEL 7-10 Last administered on 08/29/16 09:39; Admin Dose 1 MG; Start 08/25/16 at 14:30 Magnesium Hydroxide (Milk Of Mag) 30 ml DAILY PRN PO CONSTIPATION; Start at 14:30 Bisacodyl (Dulcolax) 5 mg DAILY PRN PO CONSTIPATION; Start 08/25/16 at 14:30 Famotidine (Pepcid) 20 mg Q12 PO Last administered on 08/29/16 08:17; Admin Dose 20 MG; Start 08/25/16 at 21:00 Enoxaparin Sodium (Lovenox) 40 mg DAILY SC Last administered on 08/29/16 08:19 ; Admin Dose 40 MG; Start 08/26/16 at 09:00 Gabapentin (Neurontin) 100 mg TID PO Last administered on 08/29/16 08:17; Admin Dose 100 MG; Start 08/25/16 at 21:00 Linagliptin (Tradjenta) 5 mg DAILY PO Last administered on 08/29/16 08:17; Admin Dose 5 MG; Start 08/26/16 at 09:00 Tamsulosin HCl 0.4 mg 0.4 mg HS PO Last administered on 08/28/16 21:11; Admin Dose 0.4 MG; Start 08/25/16 at 21:00 Cefepime HCl (Maxipime 1gm/50 ml (Pmx)) 50 ml @ 100 mls/hr Q12 IVPB Last administered on 08/29/16 08:24; Admin Dose 100 MLS/HR; Start 08/25/16 at 21:00 Diagnostic Test (Pha) 1 ea 1 ea 02 XX Last administered on 08/28/16 02:28; Admin Dose 1 EA; Start 08/26/16 at 02:00 Sodium Chloride (NS) 1,000 ml @ 100 mls/hr Q10H IV Last administered on 05:38; Admin Dose 100 MLS/HR; Start 08/25/16 at 17:30 Miscellaneous Information 1 ea NOTE XX ; Start 08/27/16 at 10:00 Glucose (Glutose) 15 gm Q15M PRN PO DECREASED GLUCOSE; Start 08/27/16 at 10:00 Glucose (Glutose) 22.5 gm Q15M PRN PO DECREASED GLUCOSE; Start 08/27/16 at 10: 00 Dextrose (D50w Syringe) 25 ml Q15M PRN IV DECREASED GLUCOSE; Start 08/27/16 at 10:00 Dextrose (D50w Syringe) 50 ml Q15M PRN IV DECREASED GLUCOSE; Start 08/27/16 at 10:00 Glucagon (Glucagen) 1 mg Q15M PRN IM DECREASED GLUCOSE; Start 08/27/16 at 10:00 Glucose (Glutose) 15 gm Q15M PRN BUCCAL DECREASED GLUCOSE; Start 08/27/16 at 10 :00 Diphenhydramine HCl (Benadryl) 25 mg Q4H PRN IV ITCHING Last administered on 09:38; Admin Dose 25 MG; Start 08/27/16 at 10:00 Insulin Glargine (Lantus) 15 unit QAM SC ; Start 08/30/16 at 09:00 ENMANUEL ROSENBERG MD August 29, 2016 10:43
[2016-08-29] MEDS: CEFTRIAXONE 1 GM/50 ML (PMX) 50 ML IVPB SCH (18:51)
[2016-08-29 19:15] VITALS: BP 105/59; RESP 18
[2016-08-29] MEDS: TAMSULOSIN (SR) 0.4 MG CAP PO SCH (21:45)
[2016-08-30] MEDS: ACCU-CHEK XX SCH (00:45)
[2016-08-30] MEDS: DIPHENHYDRAMINE 50 MG INJ IV PRN ×6 (01:47→22:01)
[2016-08-30] MEDS: HYDROmorphONE 1 MG/ML SYG IV PRN ×6 (01:47→22:01)
--- NOTE | 2016-08-30 03:07 | PN ---
DATE: 08/29/2016 SUBJECTIVE: No acute changes. The patient is alert, feels good, looks comfortable, no fevers. VITAL SIGNS: Stable. MICROBIOLOGY: Repeat blood cultures remain negative. Stool for C. diff came back negative. ANTIMICROBIALS: The patient is on IV cefepime. PHYSICAL EXAMINATION: GENERAL: Well-developed, cachectic, middle-aged man who is alert, in no distress. HEENT: Head atraumatic, normocephalic. Sclerae anicteric. Buccal mucosa pink. NECK: Supple. CHEST: Rise symmetrical. Breath sounds clear. HEART: S1, S2. ABDOMEN: Soft. Bowel tones present. EXTREMITIES: No cyanosis, no edema. ASSESSMENT: 1. Resolving sepsis. 2. Streptococcal bacteremia secondary to pneumonia. 3. Diabetes. 4. Acute lymphocytic leukemia, status post stem cell transplantation, currently in remission. 5. Anemia. PLAN: The patient remains stable, awaiting for PICC line placement. Will change cefepime to Roceph in. The patient to be discharged home on IV antibiotics for 2 weeks to complete treatment for strep pneumonia and bacteremia. Dictated By: RUSSELL NORRIS COORDINATE MEASURING MACHINE PROGRAMMER for EDMUNDO LOZADA MD NI/NTS Conf#: [id number] DID#: [id number]
[2016-08-30 05:33] LABS: ADD SCAN DIFF NO
[2016-08-30 05:38] LABS: BASOPHILS % 0.2 % (0.0-2.0); EOSINOPHILS # 0.3 10^3/ul (0.0-0.5); EOSINOPHILS % 2.9 % (0.0-7.0); HEMATOCRIT 31.7 % (42.0-52.0); HEMOGLOBIN 10.2 g/dl (14.0-18.0); LYMPHOCYTES # 2.8 10^3/ul (0.8-2.9); LYMPHOCYTES % 25.6 % (15.0-51.0); MEAN CORPUSCULAR HEMOGLOBIN 30.7 pg (29.0-33.0); MEAN CORPUSCULAR HGB CONC 32.2 g/dl (32.0-37.0); MEAN CORPUSCULAR VOLUME 95.5 fl (82.0-101.0); MEAN PLATELET VOLUME 9.8 fl (7.4-10.4); MONOCYTES % 8.9 % (0.0-11.0); NEUTROPHIL # 6.6 10^3/ul (1.6-7.5); NEUTROPHILS % 61.7 % (39.0-77.0); PLATELET COUNT 226 10^3/UL (140-415); RED BLOOD COUNT 3.32 10^6/ul (4.70-6.10); RED CELL DISTRIBUTION WIDTH 12.3 % (11.5-14.5); WHITE BLOOD COUNT 10.7 10^3/ul (4.8-10.8)
[2016-08-30 05:55] LABS: ALBUMIN 3.2 g/dl (3.3-4.9); ALBUMIN/GLOBULIN RATIO 1.03; CALCIUM 8.8 mg/dl (8.4-10.2); CREATININE 0.75 mg/dl (0.61-1.24); POTASSIUM 4.5 mmol/L (3.5-5.1); TOTAL PROTEIN 6.3 g/dl (6.1-8.1)
[2016-08-30] MEDS: SOD CHLORIDE 0.9% 1,000 ML IV SCH ×2 (06:02→17:27)
[2016-08-30] MEDS: INSULIN ASPART [NOVOLOG] 3 ML PEN SC SCH ×7 (07:50→21:00)
[2016-08-30] MEDS: ENOXAPARIN 40 MG/0.4 ML SYG SC SCH (08:28)
[2016-08-30] MEDS: LINAGLIPTIN 5 MG TABLET PO SCH (08:29)
[2016-08-30] MEDS: GABAPENTIN 100 MG CAP PO SCH ×3 (08:29→21:49)
[2016-08-30] MEDS: FAMOTIDINE 20 MG TAB PO SCH ×2 (08:29→21:50)
[2016-08-30 08:33] VITALS: BP 128/85; RESP 20
[2016-08-30] MEDS: INSULIN GLARGINE [LANtus] 3 ML PEN SC SCH (08:33)
--- NOTE | 2016-08-30 09:07 | PN ---
DATE: 08/30/2016 HEMATOLOGY/ONCOLOGY PROGRESS NOTE SUBJECTIVE: Patient states he feels well. No chest pain, no shortness of breath. No fevers or chi lls. Appetite is good. OBJECTIVE: The patient is a thin but well-developed, well-nourished male in no acute distress. VITAL SIGNS: Temperature 98, pulse 90 and regular, respirations 20, blood pressure 128/95, pulse ox imetry 99% on room air. SKIN: No ecchymosis, no petechiae or rashes. HEENT: No mucosal lesions. No scleral icterus. NECK: Supple, no jugular venous distention or thyroid enlargement. CHEST: Clear to auscultation and percussion. No rhonchi, wheezes, rales or rubs. NODES: No palpable lymphadenopathy in any lymph node bearing area. ABDOMEN: Soft, no masses, no ascites. EXTREMITIES: Good range of motion, no clubbing, edema or cyanosis. No palpable cords or Homans sig n. NEUROLOGIC: Normal. White count 10,700 with an absolute neutrophil count of 6600, absolute lymphocyte count of 2800, hem oglobin 10.2, hematocrit 31.7 and platelet count 226,000. Sodium 137, potassium 4.5, creatinine 0.7 5, BUN 10, calcium 8.8, total bilirubin 0, AST 28, ALT 31, alkaline phosphatase 77. Immunofixation demonstrates a normal pattern. There are no monoclonal proteins detected. IMPRESSION: 1. Acute lymphoblastic leukemia in remission, status post stem cell transplant. 2. Right-sided pneumonia, resolving. 3. Alpha hemolytic strep bacteremia. PLAN: The patient has presently been switched to ceftriaxone, which he will receive daily. Indigo venegas, the plan is to place a PICC line so that the patient may receive 1 week of therapy at home. No other hematologic or oncologic recommendations at this time. Dictated By: SARY CASTANON MD SR/NTS Conf#: [id number] DID#: [id number]
--- NOTE | 2016-08-30 10:04 | PN ---
Date/Time of Note Date/Time of Note DATE: 08/30/16 TIME: 09:59 Assessment/Plan VTE Prophylaxis VTE Prophylaxis Intervention: heparin Lines/Catheters IV Catheter Type (from [place]): Peripheral IV Central line still needed: Yes Assessment/Plan Problems: (1) History of stem cell transplant Status: Chronic Comment: Noted. This is roughly 10 years out. He has done quite well from this. (2) Streptococcal pneumonia Status: Acute Comment: He is on IV antibiotics for this and as per infectious disease virtualization consultant should receive a total 2 week course of IV antibiotics. He will have a PICC line placed today for administration at home. Once the PICC line is in and home health set up he may be discharged directly (3) Diabetes mellitus type 2 in nonobese Status: Chronic Comment: Please note he has been insulin treated. The patient reports he has gone a whole month without insulin due to insurance issues. This by definition means that he is a type II diabetic not a type I diabetic. As an outpatient it could be considered to transition over to some oral agent therapy if indicated and desired. This does not need to be done as an inpatient (4) Portacath in place Status: Resolved Comment: This was removed roughly 2 years ago (5) Anemia Status: Acute Comment: While he has a markedly elevated ferritin which may be reflective of his pneumonia he also has a modest iron deficiency. I will defer off of this to Dr. Spaulding (6) History of acute lymphoblastic leukemia (ALL) in remission Status: Chronic Comment: Noted and apparently in remission fortunately Subjective 24 Hr Interval Summary Free Text/Dictation Charming 31-year-old gentleman with community-acquired pneumonia resting. At this time reports he is doing significantly better as compared to the time of admission. Constitutional: no complaints (No fevers chills or sweats) Respiratory: no complaints Cardiovascular: no complaints Gastrointestinal: no complaints Genitourinary: no complaints Musculoskeletal: no complaints Exam/Review of Systems Vital Signs Vitals Vital Signs Date Time Temp Pulse Resp B/P Pulse Ox O2 Delivery O2 Flow Rate FiO2 08/30/16 08:33 98.0 90 20 128/85 99 08/27/16 08:00 Nasal Cannula 2.0 Intake and Output 08/29/16 08/29/16 08/30/16 15:00 23:00 07:00 Intake Total 50 ml 2350 ml 1900 ml Output Total 1400 ml 850 ml Balance 50 ml 950 ml 1050 ml Exam Constitutional: alert, oriented Neck: non-tender, supple Respiratory: clear to auscultation, normal air movement Cardiovascular: nl pulses, regular rate and rhythm Gastrointestinal: nl liver, spleen, non-tender, soft Results Result Diagram: 08/30/16 0451 08/30/16 0450 Results 24 hrs Laboratory Tests Test 08/29/16 12:22 08/29/16 17:20 08/29/16 17:41 08/29/16 18:49 Bedside Glucose 109 61 L 90 157 Test 08/29/16 20:05 08/30/16 04:50 08/30/16 04:51 08/30/16 08:32 Bedside Glucose 136 115 Sodium Level 137 Potassium Level 4.5 Chloride Level 107 Carbon Dioxide Level 25 Anion Gap 10 Blood Urea Nitrogen 10 Creatinine 0.75 Glucose Level 146 # Calcium Level 8.8 Total Bilirubin 0.0 L Direct Bilirubin 0.00 Indirect Bilirubin 0.0 Aspartate Amino Transf (AST/SGOT) 28 # Alanine Aminotransferase (ALT/SGPT) 31 Alkaline Phosphatase 77 Total Protein 6.3 Albumin 3.2 L Globulin 3.10 Albumin/Globulin Ratio 1.03 White Blood Count 10.7 # Red Blood Count 3.32 L Hemoglobin 10.2 L Hematocrit 31.7 L Mean Corpuscular Volume 95.5 Mean Corpuscular Hemoglobin 30.7 Mean Corpuscular Hemoglobin Concent 32.2 Red Cell Distribution Width 12.3 Platelet Count 226 # Mean Platelet Volume 9.8 Neutrophils % 61.7 Lymphocytes % 25.6 Monocytes % 8.9 Eosinophils % 2.9 Basophils % 0.2 Nucleated Red Blood Cells % 0.0 Neutrophils # 6.6 Lymphocytes # 2.8 Monocytes # 1.0 H Eosinophils # 0.3 Basophils # 0.0 Nucleated Red Blood Cells # 0.0 Medications Medications Current Medications Lorazepam (Ativan) 0.5 mg Q6H PRN IV ANXIETY; Start 08/25/16 at 14:30 Ondansetron HCl (Zofran Inj) 4 mg Q6H PRN IV NAUSEA AND/OR VOMITING; Start at 14:30 Acetaminophen (Tylenol Tab) 650 mg Q6H PRN PO PAIN LEVEL 1-3 OR FEVER; Start at 14:30 Acetaminophen/ Hydrocodone Bitart ([place] (5/325)) 2 tab Q6H PRN PO PAIN LEVEL 7 -10 Last administered on 08/28/16 23:27; Admin Dose 2 TAB; Start 08/25/16 at 14 :30 Hydromorphone HCl (Dilaudid) 1 mg Q4H PRN IV PAIN LEVEL 7-10 Last administered on 08/30/16 05:53; Admin Dose 1 MG; Start 08/25/16 at 14:30 Magnesium Hydroxide (Milk Of Mag) 30 ml DAILY PRN PO CONSTIPATION; Start at 14:30 Bisacodyl (Dulcolax) 5 mg DAILY PRN PO CONSTIPATION; Start 08/25/16 at 14:30 Famotidine (Pepcid) 20 mg Q12 PO Last administered on 08/30/16 08:29; Admin Dose 20 MG; Start 08/25/16 at 21:00 Enoxaparin Sodium (Lovenox) 40 mg DAILY SC Last administered on 08/29/16 08:19 ; Admin Dose 40 MG; Start 08/26/16 at 09:00 Gabapentin (Neurontin) 100 mg TID PO Last administered on 08/30/16 08:29; Admin Dose 100 MG; Start 08/25/16 at 21:00 Linagliptin (Tradjenta) 5 mg DAILY PO Last administered on 08/30/16 08:29; Admin Dose 5 MG; Start 08/26/16 at 09:00 Tamsulosin HCl (Flomax) 0.4 mg HS PO Last administered on 08/29/16 21:45; Admin Dose 0.4 MG; Start 08/25/16 at 21:00 Diagnostic Test (Pha) 1 ea 1 ea 02 XX Last administered on 08/28/16 02:28; Admin Dose 1 EA; Start 08/26/16 at 02:00 Sodium Chloride (NS) 1,000 ml @ 100 mls/hr Q10H IV Last administered on 06:02; Admin Dose 100 MLS/HR; Start 08/25/16 at 17:30 Miscellaneous Information 1 ea NOTE XX ; Start 08/27/16 at 10:00 Glucose (Glutose) 15 gm Q15M PRN PO DECREASED GLUCOSE; Start 08/27/16 at 10:00 Glucose (Glutose) 22.5 gm Q15M PRN PO DECREASED GLUCOSE; Start 08/27/16 at 10: 00 Dextrose (D50w Syringe) 25 ml Q15M PRN IV DECREASED GLUCOSE; Start 08/27/16 at 10:00 Dextrose (D50w Syringe) 50 ml Q15M PRN IV DECREASED GLUCOSE; Start 08/27/16 at 10:00 Glucagon (Glucagen) 1 mg Q15M PRN IM DECREASED GLUCOSE; Start 08/27/16 at 10:00 Glucose (Glutose) 15 gm Q15M PRN BUCCAL DECREASED GLUCOSE; Start 08/27/16 at 10 :00 Diphenhydramine HCl (Benadryl) 25 mg Q4H PRN IV ITCHING Last administered on 05:52; Admin Dose 25 MG; Start 08/27/16 at 10:00 Insulin Glargine 15 unit 15 unit QAM SC ; Start 08/30/16 at 09:00 Ceftriaxone Sodium (Rocephin) 50 ml @ 100 mls/hr Q24H IVPB Last administered on 08/29/16 18:51; Admin Dose 100 MLS/HR; Start 08/29/16 at 18:00 SARAH HYLTON MD August 30, 2016 10:04
--- NOTE | 2016-08-30 13:49 | CONS ---
Date/Time of Note Date/Time of Note DATE: 08/30/16 TIME: 13:41 Assessment/Plan Assessment/Plan Chief Complaint/Hosp Course ID PROGRESS NOTE ABX DAY # 5 / 14 day total course Ceftriaxone 24H INTERVAL SUMMARY * Awake, alert, stable, no c/o -- feeling much better * DC planning in process -- waiting for PICC may not happen today per patient PHYSICAL EXAMINATION: GENERAL: A/A/O, VSS HEENT: Unremarkable NECK: Supple, trach-> midline CHEST: Equal chest rise bilaterally, without dyspnea on observation HEART: Pulse RRR ABDOMEN: Soft EXTREMITIES: Warm, SKIN: Warm, dry ID ASSESSMENT: 31 yo M admitted with: 1. Resolving sepsis. 2. Streptococcal bacteremia secondary to pneumonia. 3. Diabetes. 4. Acute lymphocytic leukemia, status post stem cell transplantation, currently in remission. 5. Anemia. INVASIVES: *PIV ABX ALLERGIES: None to ABX CURRENT ABX: # # 5 / 14 day total course Ceftriaxone ID RECOMMENDATIONS: 1. Continue current ABX day to complete 14 day course for (+)Pulmonary Sepsis w /(+)BCx 08/25/16 2. DC Planning -> HH IV ABX w/Ceftriaxone daily . Problems: Consultation Date/Type/Reason Admit Date/Time August 25, 2016 at 12:43 Initial Consult Date Exam/Review of Systems Vital Signs Vitals Vital Signs Date Time Temp Pulse Resp B/P Pulse Ox O2 Delivery O2 Flow Rate FiO2 08/30/16 08:33 98.0 90 20 128/85 99 08/27/16 08:00 Nasal Cannula 2.0 Intake and Output 08/29/16 08/29/16 08/30/16 15:00 23:00 07:00 Intake Total 50 ml 2350 ml 1900 ml Output Total 1400 ml 850 ml Balance 50 ml 950 ml 1050 ml Results Result Diagram: 08/30/16 0451 08/30/16 0450 Results 24 hrs Laboratory Tests Test 08/29/16 17:20 08/29/16 17:41 08/29/16 18:49 08/29/16 20:05 Bedside Glucose 61 L 90 157 136 Test 08/30/16 04:50 08/30/16 04:51 08/30/16 08:32 08/30/16 12:31 Sodium Level 137 Potassium Level 4.5 Chloride Level 107 Carbon Dioxide Level 25 Anion Gap 10 Blood Urea Nitrogen 10 Creatinine 0.75 Glucose Level 146 # Calcium Level 8.8 Total Bilirubin 0.0 L Direct Bilirubin 0.00 Indirect Bilirubin 0.0 Aspartate Amino Transf (AST/SGOT) 28 # Alanine Aminotransferase (ALT/SGPT) 31 Alkaline Phosphatase 77 Total Protein 6.3 Albumin 3.2 L Globulin 3.10 Albumin/Globulin Ratio 1.03 White Blood Count 10.7 # Red Blood Count 3.32 L Hemoglobin 10.2 L Hematocrit 31.7 L Mean Corpuscular Volume 95.5 Mean Corpuscular Hemoglobin 30.7 Mean Corpuscular Hemoglobin Concent 32.2 Red Cell Distribution Width 12.3 Platelet Count 226 # Mean Platelet Volume 9.8 Neutrophils % 61.7 Lymphocytes % 25.6 Monocytes % 8.9 Eosinophils % 2.9 Basophils % 0.2 Nucleated Red Blood Cells % 0.0 Neutrophils # 6.6 Lymphocytes # 2.8 Monocytes # 1.0 H Eosinophils # 0.3 Basophils # 0.0 Nucleated Red Blood Cells # 0.0 Bedside Glucose 115 135 Medications Medications Current Medications Lorazepam (Ativan) 0.5 mg Q6H PRN IV ANXIETY; Start 08/25/16 at 14:30 Ondansetron HCl (Zofran Inj) 4 mg Q6H PRN IV NAUSEA AND/OR VOMITING; Start at 14:30 Acetaminophen (Tylenol Tab) 650 mg Q6H PRN PO PAIN LEVEL 1-3 OR FEVER; Start at 14:30 Acetaminophen/ Hydrocodone Bitart ([place] (5/325)) 2 tab Q6H PRN PO PAIN LEVEL 7 -10 Last administered on 08/28/16 23:27; Admin Dose 2 TAB; Start 08/25/16 at 14 :30 Hydromorphone HCl (Dilaudid) 1 mg Q4H PRN IV PAIN LEVEL 7-10 Last administered on 08/30/16 10:03; Admin Dose 1 MG; Start 08/25/16 at 14:30 Magnesium Hydroxide (Milk Of Mag) 30 ml DAILY PRN PO CONSTIPATION; Start at 14:30 Bisacodyl (Dulcolax) 5 mg DAILY PRN PO CONSTIPATION; Start 08/25/16 at 14:30 Famotidine (Pepcid) 20 mg Q12 PO Last administered on 08/30/16 08:29; Admin Dose 20 MG; Start 08/25/16 at 21:00 Enoxaparin Sodium (Lovenox) 40 mg DAILY SC Last administered on 08/29/16 08:19 ; Admin Dose 40 MG; Start 08/26/16 at 09:00 Gabapentin (Neurontin) 100 mg TID PO Last administered on 08/30/16 08:29; Admin Dose 100 MG; Start 08/25/16 at 21:00 Linagliptin (Tradjenta) 5 mg DAILY PO Last administered on 08/30/16 08:29; Admin Dose 5 MG; Start 08/26/16 at 09:00 Tamsulosin HCl (Flomax) 0.4 mg HS PO Last administered on 08/29/16 21:45; Admin Dose 0.4 MG; Start 08/25/16 at 21:00 Diagnostic Test (Pha) 1 ea 1 ea 02 XX Last administered on 08/28/16 02:28; Admin Dose 1 EA; Start 08/26/16 at 02:00 Sodium Chloride (NS) 1,000 ml @ 100 mls/hr Q10H IV Last administered on 06:02; Admin Dose 100 MLS/HR; Start 08/25/16 at 17:30 Miscellaneous Information 1 ea NOTE XX ; Start 08/27/16 at 10:00 Glucose (Glutose) 15 gm Q15M PRN PO DECREASED GLUCOSE; Start 08/27/16 at 10:00 Glucose (Glutose) 22.5 gm Q15M PRN PO DECREASED GLUCOSE; Start 08/27/16 at 10: 00 Dextrose (D50w Syringe) 25 ml Q15M PRN IV DECREASED GLUCOSE; Start 08/27/16 at 10:00 Dextrose (D50w Syringe) 50 ml Q15M PRN IV DECREASED GLUCOSE; Start 08/27/16 at 10:00 Glucagon (Glucagen) 1 mg Q15M PRN IM DECREASED GLUCOSE; Start 08/27/16 at 10:00 Glucose (Glutose) 15 gm Q15M PRN BUCCAL DECREASED GLUCOSE; Start 08/27/16 at 10 :00 Diphenhydramine HCl (Benadryl) 25 mg Q4H PRN IV ITCHING Last administered on 10:08; Admin Dose 25 MG; Start 08/27/16 at 10:00 Insulin Glargine 15 unit 15 unit QAM SC ; Start 08/30/16 at 09:00 Ceftriaxone Sodium (Rocephin) 50 ml @ 100 mls/hr Q24H IVPB Last administered on 08/29/16t 18:51; Admin Dose 100 MLS/HR; Start 08/29/16 at 18:00 DONTAE CONNOLLY NP August 30, 2016 13:49
[2016-08-30] MEDS: HYDROCODONE/APAP (5/325) TAB PO PRN (16:33)
[2016-08-30] MEDS: CEFTRIAXONE 1 GM/50 ML (PMX) 50 ML IVPB SCH (17:27)
[2016-08-30 19:10] VITALS: BP 130/80; RESP 18
[2016-08-30 19:42] VITALS: BP 130/80; PULSE 74; RESP 18
[2016-08-30] MEDS: TAMSULOSIN (SR) 0.4 MG CAP PO SCH (21:49)
[2016-08-31] MEDS: ACCU-CHEK XX SCH (02:00)
[2016-08-31] MEDS: DIPHENHYDRAMINE 50 MG INJ IV PRN ×6 (02:04→23:01)
[2016-08-31] MEDS: HYDROmorphONE 1 MG/ML SYG IV PRN ×6 (02:05→22:50)
[2016-08-31] MEDS: SOD CHLORIDE 0.9% 1,000 ML IV SCH ×3 (03:49→17:54)
[2016-08-31 07:00] VITALS: BP 132/82; RESP 20
--- NOTE | 2016-08-31 07:32 | PN ---
Date/Time of Note Date/Time of Note DATE: 08/31/16 TIME: 07:29 Assessment/Plan VTE Prophylaxis VTE Prophylaxis Intervention: heparin Lines/Catheters IV Catheter Type (from Nrsg): Peripheral IV Assessment/Plan Problems: (1) Diabetes mellitus type 2 in nonobese Status: Chronic Comment: Good sontrol. Please note that at discharge needs presciptions for insulin as out at home (2) Streptococcal pneumonia Status: Acute Comment: Continue antibiotics to as per ID. Awaiting PICC and home health Subjective 24 Hr Interval Summary Free Text/Dictation Patient reports no changes Constitutional: no complaints Respiratory: no complaints Cardiovascular: no complaints Gastrointestinal: no complaints Genitourinary: no complaints Exam/Review of Systems Vital Signs Vitals Vital Signs Date Time Temp Pulse Resp B/P Pulse Ox O2 Delivery O2 Flow Rate FiO2 08/30/16 19:42 98.8 74 18 130/80 97 Room Air 08/27/16 08:00 2.0 Intake and Output 08/30/16 08/30/16 08/31/16 15:00 23:00 07:00 Intake Total 2040 ml 2000 ml Output Total 1450 ml 1300 ml Balance 590 ml 700 ml Exam Constitutional: alert, oriented Neck: non-tender, supple Respiratory: clear to auscultation, normal air movement Cardiovascular: nl pulses, regular rate and rhythm Results Result Diagram: 08/30/16 0451 08/30/16 0450 Results 24 hrs Laboratory Tests Test 08/30/16 08:32 08/30/16 12:31 08/30/16 17:35 08/30/16 21:49 Bedside Glucose 115 135 157 156 Medications Medications Current Medications Lorazepam (Ativan) 0.5 mg Q6H PRN IV ANXIETY; Start 08/25/16 at 14:30 Ondansetron HCl (Zofran Inj) 4 mg Q6H PRN IV NAUSEA AND/OR VOMITING; Start at 14:30 Acetaminophen (Tylenol Tab) 650 mg Q6H PRN PO PAIN LEVEL 1-3 OR FEVER; Start at 14:30 Acetaminophen/ Hydrocodone Bitart ([place] (5/325)) 2 tab Q6H PRN PO PAIN LEVEL 7 -10 Last administered on 08/30/16t 16:33; Admin Dose 2 TAB; Start 08/25/16 at 14 :30 Hydromorphone HCl (Dilaudid) 1 mg Q4H PRN IV PAIN LEVEL 7-10 Last administered on 08/31/16 06:05; Admin Dose 1 MG; Start 08/25/16 at 14:30 Magnesium Hydroxide (Milk Of Mag) 30 ml DAILY PRN PO CONSTIPATION; Start at 14:30 Bisacodyl (Dulcolax) 5 mg DAILY PRN PO CONSTIPATION; Start 08/25/16 at 14:30 Famotidine (Pepcid) 20 mg Q12 PO Last administered on 08/30/16 21:50; Admin Dose 20 MG; Start 08/25/16 at 21:00 Enoxaparin Sodium (Lovenox) 40 mg DAILY SC Last administered on 08/29/16 08:19 ; Admin Dose 40 MG; Start 08/26/16 at 09:00 Gabapentin (Neurontin) 100 mg TID PO Last administered on 08/30/16 21:49; Admin Dose 100 MG; Start 08/25/16 at 21:00 Linagliptin (Tradjenta) 5 mg DAILY PO Last administered on 08/30/16 08:29; Admin Dose 5 MG; Start 08/26/16 at 09:00 Tamsulosin HCl (Flomax) 0.4 mg HS PO Last administered on 08/30/16 21:49; Admin Dose 0.4 MG; Start 08/25/16 at 21:00 Diagnostic Test (Pha) 1 ea 1 ea 02 XX Last administered on 08/28/16 02:28; Admin Dose 1 EA; Start 08/26/16 at 02:00 Sodium Chloride (NS) 1,000 ml @ 100 mls/hr Q10H IV Last administered on 03:49; Admin Dose 100 MLS/HR; Start 08/25/16 at 17:30 Miscellaneous Information 1 ea NOTE XX ; Start 08/27/16 at 10:00 Glucose (Glutose) 15 gm Q15M PRN PO DECREASED GLUCOSE; Start 08/27/16 at 10:00 Glucose (Glutose) 22.5 gm Q15M PRN PO DECREASED GLUCOSE; Start 08/27/16 at 10: 00 Dextrose (D50w Syringe) 25 ml Q15M PRN IV DECREASED GLUCOSE; Start 08/27/16 at 10:00 Dextrose (D50w Syringe) 50 ml Q15M PRN IV DECREASED GLUCOSE; Start 08/27/16 at 10:00 Glucagon (Glucagen) 1 mg Q15M PRN IM DECREASED GLUCOSE; Start 08/27/16 at 10:00 Glucose (Glutose) 15 gm Q15M PRN BUCCAL DECREASED GLUCOSE; Start 08/27/16 at 10 :00 Diphenhydramine HCl (Benadryl) 25 mg Q4H PRN IV ITCHING Last administered on 06:04; Admin Dose 25 MG; Start 08/27/16 at 10:00 Insulin Glargine 15 unit 15 unit QAM SC ; Start 08/30/16 at 09:00 Ceftriaxone Sodium (Rocephin) 50 ml @ 100 mls/hr Q24H IVPB Last administered on 08/30/16 17:27; Admin Dose 100 MLS/HR; Start 08/29/16 at 18:00; Stop at 17:59 SARAH HYLTON MD August 31, 2016 07:32
[2016-08-31] MEDS: INSULIN ASPART [NOVOLOG] 3 ML PEN SC SCH ×7 (10:05→22:55)
[2016-08-31] MEDS: INSULIN GLARGINE [LANtus] 3 ML PEN SC SCH (10:07)
[2016-08-31] MEDS: GABAPENTIN 100 MG CAP PO SCH ×3 (10:08→20:43)
[2016-08-31] MEDS: LINAGLIPTIN 5 MG TABLET PO SCH (10:08)
[2016-08-31] MEDS: FAMOTIDINE 20 MG TAB PO SCH ×2 (10:08→20:43)
--- NOTE | 2016-08-31 14:46 | RADRPT ---
PROCEDURE: XR Chest. CLINICAL INDICATION: PICC placement. TECHNIQUE: Chest x-ray, single view. COMPARISON: 08/25/2016. FINDINGS: The cardiomediastinal silhouette is normal. The lungs are clear. A left upper extremity PICC is in place and terminates at the SVC/right atrial junction , which is satisfactory in position. Skelet al structures and upper abdomen are unremarkable. IMPRESSION: Satisfactory positioning of left upper extremity PICC. RPTAT: HLST .Kaye Stanley MD, MD Date Time Electronically viewed and signed by .Kaye Stanley MD, on 08/31/2016 14:46 .T/
[2016-08-31 15:05] VITALS: BP 134/88; PULSE 115; RESP 20
[2016-08-31] MEDS: ENOXAPARIN 40 MG/0.4 ML SYG SC SCH (15:22)
--- NOTE | 2016-08-31 16:19 | CONS ---
Date/Time of Note Date/Time of Note DATE: 08/31/16 TIME: 16:18 Assessment/Plan Assessment/Plan Chief Complaint/Hosp Course ID PROGRESS NOTE ABX DAY # 6 / 14 day total course Ceftriaxone 24H INTERVAL SUMMARY * PICC Placed today -> DC planning in process * Awake, alert, stable, no c/o offered PHYSICAL EXAMINATION: GENERAL: A/A/O, VSS HEENT: Unremarkable NECK: Supple, trach-> midline CHEST: Equal chest rise bilaterally, without dyspnea on observation HEART: Pulse RRR ABDOMEN: Soft EXTREMITIES: Warm, SKIN: Warm, dry ID ASSESSMENT: 31 yo M admitted with: 1. Resolving sepsis. 2. Streptococcal bacteremia secondary to pneumonia. 3. Diabetes. 4. Acute lymphocytic leukemia, status post stem cell transplantation, currently in remission. 5. Anemia. INVASIVES: *PIV ABX ALLERGIES: None to ABX CURRENT ABX: # 6 / 14 day total course Ceftriaxone ID RECOMMENDATIONS: 1. Continue current ABX day to complete 14 day course for (+)Pulmonary Sepsis w /(+)BCx 08/25/16 2. DC Planning -> HH IV ABX w/Ceftriaxone daily . Problems: Consultation Date/Type/Reason Admit Date/Time August 25, 2016 at 12:43 Exam/Review of Systems Vital Signs Vitals Vital Signs Date Time Temp Pulse Resp B/P Pulse Ox O2 Delivery O2 Flow Rate FiO2 08/31/16 15:05 98.5 115 20 134/88 100 Room Air 08/27/16 08:00 2.0 Intake and Output 08/30/16 08/30/16 08/31/16 15:00 23:00 07:00 Intake Total 2040 ml 2000 ml Output Total 1450 ml 1300 ml Balance 590 ml 700 ml Results Result Diagram: 08/30/16 0451 08/30/16 0450 Results 24 hrs Laboratory Tests Test 08/30/16 17:35 08/30/16 21:49 08/31/16 08:25 08/31/16 12:24 Bedside Glucose 157 156 226 H 66 L Test 08/31/16 12:40 08/31/16 12:41 08/31/16 13:16 Bedside Glucose 51 L 58 L 123 Medications Medications Current Medications Lorazepam (Ativan) 0.5 mg Q6H PRN IV ANXIETY; Start 08/25/16 at 14:30 Ondansetron HCl (Zofran Inj) 4 mg Q6H PRN IV NAUSEA AND/OR VOMITING; Start at 14:30 Acetaminophen (Tylenol Tab) 650 mg Q6H PRN PO PAIN LEVEL 1-3 OR FEVER; Start at 14:30 Acetaminophen/ Hydrocodone Bitart ([place] (5/325)) 2 tab Q6H PRN PO PAIN LEVEL 7 -10 Last administered on 08/30/16 16:33; Admin Dose 2 TAB; Start 08/25/16 at 14 :30 Hydromorphone HCl (Dilaudid) 1 mg Q4H PRN IV PAIN LEVEL 7-10 Last administered on 08/31/16 15:13; Admin Dose 1 MG; Start 08/25/16 at 14:30 Magnesium Hydroxide (Milk Of Mag) 30 ml DAILY PRN PO CONSTIPATION; Start at 14:30 Bisacodyl (Dulcolax) 5 mg DAILY PRN PO CONSTIPATION; Start 08/25/16 at 14:30 Famotidine (Pepcid) 20 mg Q12 PO Last administered on 08/31/16 10:08; Admin Dose 20 MG; Start 08/25/16 at 21:00 Enoxaparin Sodium (Lovenox) 40 mg DAILY SC Last administered on 08/29/16 08:19 ; Admin Dose 40 MG; Start 08/26/16 at 09:00; Status Future hold Gabapentin (Neurontin) 100 mg TID PO Last administered on 08/31/16 15:17; Admin Dose 100 MG; Start 08/25/16 at 21:00 Linagliptin (Tradjenta) 5 mg DAILY PO Last administered on 08/31/16 10:08; Admin Dose 5 MG; Start 08/26/16 at 09:00 Tamsulosin HCl (Flomax) 0.4 mg HS PO Last administered on 08/30/16 21:49; Admin Dose 0.4 MG; Start 08/25/16 at 21:00 Diagnostic Test (Pha) 1 ea 1 ea 02 XX Last administered on 08/28/16 02:28; Admin Dose 1 EA; Start 08/26/16 at 02:00 Sodium Chloride (NS) 1,000 ml @ 100 mls/hr Q10H IV Last administered on 03:49; Admin Dose 100 MLS/HR; Start 08/25/16 at 17:30 Miscellaneous Information 1 ea NOTE XX ; Start 08/27/16 at 10:00 Glucose (Glutose) 15 gm Q15M PRN PO DECREASED GLUCOSE; Start 08/27/16 at 10:00 Glucose (Glutose) 22.5 gm Q15M PRN PO DECREASED GLUCOSE; Start 08/27/16 at 10: 00 Dextrose (D50w Syringe) 25 ml Q15M PRN IV DECREASED GLUCOSE; Start 08/27/16 at 10:00 Dextrose (D50w Syringe) 50 ml Q15M PRN IV DECREASED GLUCOSE; Start 08/27/16 at 10:00 Glucagon (Glucagen) 1 mg Q15M PRN IM DECREASED GLUCOSE; Start 08/27/16 at 10:00 Glucose (Glutose) 15 gm Q15M PRN BUCCAL DECREASED GLUCOSE Last administered on 08/31/16 12:46; Admin Dose 15 GM; Start 08/27/16 at 10:00 Diphenhydramine HCl (Benadryl) 25 mg Q4H PRN IV ITCHING Last administered on 15:13; Admin Dose 25 MG; Start 08/27/16 at 10:00 Insulin Glargine 15 unit 15 unit QAM SC Last administered on 08/31/16 10:07; Admin Dose 15 UNIT; Start 08/30/16 at 09:00 Ceftriaxone Sodium (Rocephin) 50 ml @ 100 mls/hr Q24H IVPB Last administered on 08/30/16 17:27; Admin Dose 100 MLS/HR; Start 08/29/16 at 18:00; Stop at 17:59 DONTAE CONNOLLY NP August 31, 2016 16:19
--- NOTE | 2016-08-31 17:15 | PN ---
DATE: 08/31/2016 SUBJECTIVE: The patient is feeling well. Does not have any complaints of cough or shortness of marlo ath. No chest pain, no shaking chills. The patient has just returned from having a PICC line placed in the left upper extremity. Is now ex periencing shooting pain in the left index, middle finger, and thumb. States the fingers feel cold and that there is pain on movement. OBJECTIVE: GENERAL: The patient is a thin, but well-developed, well-nourished male in no acute distress except for hand discomfort. VITAL SIGNS: Temperature 97.6, pulse 95, respirations 20, blood pressure 132/82, pulse oximetry 98% on room air. SKIN: No ecchymosis. No petechiae or rashes. HEENT: No mucosal lesions. No scleral icterus. NECK: Supple. No jugular venous distention or thyroid enlargement. CHEST: Clear to auscultation and percussion. No rhonchi, wheezes, rales, or rubs. There is the ev idence of the previous Port-A-Cath in the anterior right chest. This is well healed. HEART: Regular sinus rhythm. No S3, S4, or murmurs. No rubs. ABDOMEN: Soft. No masses, no ascites. EXTREMITIES: Good range of motion. No clubbing, edema, or cyanosis. 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 The patient does experience pain when he tries to flex left index and mid dle finger. Peripheral pulses are intact. NEUROLOGIC: No focal neurologic abnormalities. ASSESSMENT: 1. Acute lymphoblastic leukemia in remission status post stem cell transplant. 2. Right-sided pneumonia, resolving. 3. Alpha hemolytic strep bacteremia, on antibiotic therapy. 4. Probable superficial nerve injury due to placement of the PICC line. PLAN: The patient will be receiving IV antibiotics at home for week. We will request that the Lovenox be held until tomorrow morning. I am concerned that there may be s ome trauma and bleeding with resultant nerve compression due to the insertion of the PICC line. Dictated By: SARY CASTANON MD SR/NTS Conf#: [id number] DID#: [id number] CC: BARON SIMMS MD;*EndCC*
[2016-08-31] MEDS: CEFTRIAXONE 1 GM/50 ML (PMX) 50 ML IVPB SCH (17:54)
[2016-08-31 20:00] VITALS: BP 119/85; PULSE 109; RESP 19
[2016-08-31] MEDS: TAMSULOSIN (SR) 0.4 MG CAP PO SCH (20:43)
[2016-09-01] MEDS: ACCU-CHEK XX SCH (03:00)
[2016-09-01] MEDS: HYDROmorphONE 1 MG/ML SYG IV PRN ×6 (03:06→23:15)
[2016-09-01] MEDS: DIPHENHYDRAMINE 50 MG INJ IV PRN ×6 (03:10→23:14)
[2016-09-01] MEDS: SOD CHLORIDE 0.9% 1,000 ML IV SCH ×2 (04:59→15:06)
[2016-09-01 07:34] VITALS: BP 119/76; RESP 19
[2016-09-01] MEDS: INSULIN ASPART [NOVOLOG] 3 ML PEN SC SCH ×7 (07:50→21:00)
[2016-09-01] MEDS: GABAPENTIN 100 MG CAP PO SCH ×3 (08:17→20:57)
[2016-09-01] MEDS: LINAGLIPTIN 5 MG TABLET PO SCH (08:17)
[2016-09-01] MEDS: FAMOTIDINE 20 MG TAB PO SCH ×2 (08:17→20:57)
[2016-09-01] MEDS: INSULIN GLARGINE [LANtus] 3 ML PEN SC SCH (08:36)
--- NOTE | 2016-09-01 08:38 | PN ---
DATE: 09/01/2016 HEMATOLOGY AND ONCOLOGY PROGRESS NOTE SUBJECTIVE: The patient states he is feeling better, less complaints of neuropathic pain in the lef t index and middle finger. OBJECTIVE: GENERAL: This is a well-developed but thin male in no acute distress. VITAL SIGNS: Temperature 98, pulse 97 per minute and regular, respirations 19, blood pressure 119/7 6, and pulse oximetry 98% on room air. SKIN: No ecchymosis, no petechiae or rashes. HEENT: No mucosal lesions. No scleral icterus. Normocephalic. Pupils equal, round, and reactive to light and accommodation. NECK: Supple, no jugular venous distention or thyroid enlargement. CHEST: Clear to auscultation and percussion. No rhonchi, wheezes, rales, or rubs. There is a surg ical scar in the right anterior chest from previous Port-A-Cath site. NODES: No palpable lymphadenopathy. LUNGS: Clear to auscultation and percussion. No rhonchi, wheezes, rales, or rubs. ABDOMEN: Soft, no masses, no ascites. EXTREMITIES: No clubbing, no edema or cyanosis. No palpable cords or Homans sign. NEUROLOGIC: Normal. IMPRESSION: 1. Acute lymphoblastic leukemia in remission status post stem cell transplant. 2. Right-sided pneumonia, resolved. 3. Alpha hemolytic strep bacteremia, resolved. The patient has had his PICC line placed so that he may receive daily ceftriaxone as an outpatient. At this time, I have no other hematologic or oncologic recommendations. Following discharge, the hawa arriaza should continue on his usual follow up at [facility]. As noted, the patient remains in comp lete remission. Dictated By: SARY CASTANON MD SR/NTS Conf#: [id number] DID#: [id number]
[2016-09-01] MEDS: ENOXAPARIN 40 MG/0.4 ML SYG SC SCH (09:36)
--- NOTE | 2016-09-01 09:53 | RADRPT ---
PROCEDURE: US guidance for PICC line CLINICAL INDICATION: PICC line placement TECHNIQUE: Multiple real-time images were acquired of the patient's arm utilizing a high resolutio n transducer. This was performed by the PICC line nurse for venous access. COMPARISON: None FINDINGS: Ultrasound guidance for PICC line placement. IMPRESSION: Ultrasound guidance for PICC line placement. RPTAT: AA .Gama Witt MD, MD Date Time Electronically viewed and signed by .Gama Witt MD, on 09/01/2016 09:53 .S/
--- NOTE | 2016-09-01 12:43 | PN ---
DATE: 09/01/2016 INFECTIOUS DISEASE PROGRESS NOTE SUBJECTIVE: No events overnight. No fevers. The patient is alert, feels okay. Looks comfortable. INDWELLINGS: He had a PICC line placed yesterday. ANTIMICROBIALS: He is on IV Rocephin. PHYSICAL EXAMINATION: GENERAL: This is a cachectic, middle-aged man who is awake, in no distress. HEENT: Head atraumatic, normocephalic. Sclerae anicteric. Buccal mucosa pink. NECK: Supple. CHEST: Rise symmetrical. Breath sounds clear. HEART: S1, S2. ABDOMEN: Soft, bowel sounds present. EXTREMITIES: Without cyanosis. ASSESSMENT: 1. Resolving sepsis. 2. Pneumonia with streptococcal bacteremia. 3. Diabetes. 4. History of ALL status post stem cell transplantation, in remission. PLAN: The patient remains stable, PICC was placed, repeat blood cultures negative. The patient to be discharged home on IV Rocephin to complete 2 weeks IV antibiotics. He is being followed by Dr. Bindu gibson, the patient is going to be seeing his oncologist at [facility]. Dictated By: RUSSELL NORRIS [employer] ATTENDANT for EDMUNDO LOZADA MD NI/NTS Conf#: [id number] DID#: [id number]
--- NOTE | 2016-09-01 15:16 | PN ---
Date/Time of Note Date/Time of Note DATE: 09/01/16 TIME: 15:12 Assessment/Plan VTE Prophylaxis VTE Prophylaxis Intervention: LMWH Lines/Catheters Urinary Cath still in place: No Assessment/Plan Chief Complaint/Hosp Course 1. Diabetes mellitus type 2 in nonobese Continue regimen 2. 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 Prophylaxis: Lovenox Charge planning: Currently waiting for full scope Medi-Dominic in order to cover home health with IV antibiotics Problems: Subjective 24 Hr Interval Summary Neurologic: focal-weakness (Left arm) Exam/Review of Systems Vital Signs Vitals Vital Signs Date Time Temp Pulse Resp B/P Pulse Ox O2 Delivery O2 Flow Rate FiO2 09/01/16 07:34 98.0 97 19 119/76 98 08/31/16 15:05 Room Air Intake and Output 08/31/16 08/31/16 09/01/16 15:00 23:00 07:00 Intake Total 2190 ml 1600 ml Output Total 2340 ml 1500 ml Balance -150 ml 100 ml Exam Constitutional: alert Respiratory: clear to auscultation Cardiovascular: regular rate and rhythm Gastrointestinal: soft, No distended Musculoskeletal: nl extremities to inspection Results Result Diagram: 08/30/16 0451 08/30/16 0450 Results 24 hrs Laboratory Tests Test 08/31/16 17:51 08/31/16 22:52 09/01/16 03:07 09/01/16 08:16 Bedside Glucose 90 199 91 123 Test 09/01/16 12:17 Bedside Glucose 192 Medications Medications Current Medications Lorazepam (Ativan) 0.5 mg Q6H PRN IV ANXIETY; Start 08/25/16 at 14:30 Ondansetron HCl (Zofran Inj) 4 mg Q6H PRN IV NAUSEA AND/OR VOMITING; Start at 14:30 Acetaminophen (Tylenol Tab) 650 mg Q6H PRN PO PAIN LEVEL 1-3 OR FEVER; Start at 14:30 Acetaminophen/ Hydrocodone Bitart ([place] (5/325)) 2 tab Q6H PRN PO PAIN LEVEL 7 -10 Last administered on 08/30/16t 16:33; Admin Dose 2 TAB; Start 08/25/16 at 14 :30 Hydromorphone HCl (Dilaudid) 1 mg Q4H PRN IV PAIN LEVEL 7-10 Last administered on 09/01/16 15:06; Admin Dose 1 MG; Start 08/25/16 at 14:30 Magnesium Hydroxide (Milk Of Mag) 30 ml DAILY PRN PO CONSTIPATION; Start at 14:30 Bisacodyl (Dulcolax) 5 mg DAILY PRN PO CONSTIPATION; Start 08/25/16 at 14:30 Famotidine (Pepcid) 20 mg Q12 PO Last administered on 09/01/16 08:17; Admin Dose 20 MG; Start 08/25/16 at 21:00 Enoxaparin Sodium (Lovenox) 40 mg DAILY SC Last administered on 09/01/16 09:36 ; Admin Dose 40 MG; Start 08/26/16 at 09:00; Status Future hold Gabapentin (Neurontin) 100 mg TID PO Last administered on 09/01/16 13:03; Admin Dose 100 MG; Start 08/25/16 at 21:00 Linagliptin (Tradjenta) 5 mg DAILY PO Last administered on 09/01/16 08:17; Admin Dose 5 MG; Start 08/26/16 at 09:00 Tamsulosin HCl (Flomax) 0.4 mg HS PO Last administered on 08/31/16 20:43; Admin Dose 0.4 MG; Start 08/25/16 at 21:00 Diagnostic Test (Pha) 1 ea 1 ea 02 XX Last administered on 09/01/16 03:00; Admin Dose 1 EA; Start 08/26/16 at 02:00 Sodium Chloride (NS) 1,000 ml @ 100 mls/hr Q10H IV Last administered on 15:06; Admin Dose 100 MLS/HR; Start 08/25/16 at 17:30 Miscellaneous Information 1 ea NOTE XX ; Start 08/27/16 at 10:00 Glucose (Glutose) 15 gm Q15M PRN PO DECREASED GLUCOSE; Start 08/27/16 at 10:00 Glucose (Glutose) 22.5 gm Q15M PRN PO DECREASED GLUCOSE; Start 08/27/16 at 10: 00 Dextrose (D50w Syringe) 25 ml Q15M PRN IV DECREASED GLUCOSE; Start 08/27/16 at 10:00 Dextrose (D50w Syringe) 50 ml Q15M PRN IV DECREASED GLUCOSE; Start 08/27/16 at 10:00 Glucagon (Glucagen) 1 mg Q15M PRN IM DECREASED GLUCOSE; Start 08/27/16 at 10:00 Glucose (Glutose) 15 gm Q15M PRN BUCCAL DECREASED GLUCOSE Last administered on 08/31/16 12:46; Admin Dose 15 GM; Start 08/27/16 at 10:00 Diphenhydramine HCl (Benadryl) 25 mg Q4H PRN IV ITCHING Last administered on 15:06; Admin Dose 25 MG; Start 08/27/16 at 10:00 Insulin Glargine 15 unit 15 unit QAM SC Last administered on 09/01/16 08:36; Admin Dose 15 UNIT; Start 08/30/16 at 09:00 Ceftriaxone Sodium (Rocephin) 50 ml @ 100 mls/hr Q24H IVPB Last administered on 08/31/16 17:54; Admin Dose 100 MLS/HR; Start 08/29/16 at 18:00; Stop at 17:59 LEON GIL September 01, 2016 15:16
[2016-09-01] MEDS: CEFTRIAXONE 1 GM/50 ML (PMX) 50 ML IVPB SCH (17:43)
[2016-09-01 19:37] VITALS: BP 117/64; RESP 16
[2016-09-01] MEDS: TAMSULOSIN (SR) 0.4 MG CAP PO SCH (20:57)
[2016-09-02] MEDS: ACCU-CHEK XX SCH (02:00)
[2016-09-02] MEDS: HYDROmorphONE 1 MG/ML SYG IV PRN ×6 (03:30→23:45)
[2016-09-02] MEDS: DIPHENHYDRAMINE 50 MG INJ IV PRN ×6 (03:30→23:44)
[2016-09-02] MEDS: SOD CHLORIDE 0.9% 1,000 ML IV SCH ×2 (03:44→13:52)
[2016-09-02 07:31] VITALS: BP 134/93; RESP 19
[2016-09-02] MEDS: INSULIN ASPART [NOVOLOG] 3 ML PEN SC SCH ×7 (07:50→21:00)
[2016-09-02] MEDS: FAMOTIDINE 20 MG TAB PO SCH ×2 (08:25→19:46)
[2016-09-02] MEDS: LINAGLIPTIN 5 MG TABLET PO SCH (08:25)
[2016-09-02] MEDS: GABAPENTIN 100 MG CAP PO SCH ×3 (08:25→19:46)
[2016-09-02] MEDS: INSULIN GLARGINE [LANtus] 3 ML PEN SC SCH (09:07)
[2016-09-02] MEDS: ENOXAPARIN 40 MG/0.4 ML SYG SC SCH (09:27)
--- NOTE | 2016-09-02 11:32 | PN ---
Date/Time of Note Date/Time of Note DATE: 09/02/16 TIME: 11:31 Assessment/Plan VTE Prophylaxis VTE Prophylaxis Intervention: LMWH Lines/Catheters Urinary Cath still in place: No Assessment/Plan Chief Complaint/Hosp Course 1. Diabetes mellitus type 2 in nonobese Continue regimen 2. 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 Prophylaxis: Lovenox DC planning: Currently waiting for full scope Medi-Dominic in order to cover home health with IV antibiotics Problems: Subjective 24 Hr Interval Summary Constitutional: no complaints Exam/Review of Systems Vital Signs Vitals Vital Signs Date Time Temp Pulse Resp B/P Pulse Ox O2 Delivery O2 Flow Rate FiO2 09/02/16 07:31 98.7 106 19 134/93 99 08/31/16 15:05 Room Air Intake and Output 09/01/16 09/01/16 09/02/16 15:00 23:00 07:00 Intake Total 1800 ml 2150 ml Output Total 1500 ml 1700 ml Balance 300 ml 450 ml Exam Constitutional: alert Respiratory: clear to auscultation Cardiovascular: regular rate and rhythm Gastrointestinal: soft, No distended Musculoskeletal: nl extremities to inspection Results Result Diagram: 08/30/16 0451 08/30/16 0450 Results 24 hrs Laboratory Tests Test 09/01/16 12:17 09/01/16 17:45 09/01/16 21:00 09/02/16 08:27 Bedside Glucose 192 78 118 88 Medications Medications Current Medications Lorazepam (Ativan) 0.5 mg Q6H PRN IV ANXIETY; Start 08/25/16 at 14:30 Ondansetron HCl (Zofran Inj) 4 mg Q6H PRN IV NAUSEA AND/OR VOMITING; Start at 14:30 Acetaminophen (Tylenol Tab) 650 mg Q6H PRN PO PAIN LEVEL 1-3 OR FEVER; Start at 14:30 Acetaminophen/ Hydrocodone Bitart ([place] (5/325)) 2 tab Q6H PRN PO PAIN LEVEL 7 -10 Last administered on 08/30/16 16:33; Admin Dose 2 TAB; Start 08/25/16 at 14 :30 Hydromorphone HCl (Dilaudid) 1 mg Q4H PRN IV PAIN LEVEL 7-10 Last administered on 09/02/16 07:34; Admin Dose 1 MG; Start 08/25/16 at 14:30 Magnesium Hydroxide (Milk Of Mag) 30 ml DAILY PRN PO CONSTIPATION; Start at 14:30 Bisacodyl (Dulcolax) 5 mg DAILY PRN PO CONSTIPATION; Start 08/25/16 at 14:30 Famotidine (Pepcid) 20 mg Q12 PO Last administered on 09/02/16 08:25; Admin Dose 20 MG; Start 08/25/16 at 21:00 Enoxaparin Sodium (Lovenox) 40 mg DAILY SC Last administered on 09/02/16 09:27 ; Admin Dose 40 MG; Start 08/26/16 at 09:00; Status Future hold Gabapentin (Neurontin) 100 mg TID PO Last administered on 09/02/16 08:25; Admin Dose 100 MG; Start 08/25/16 at 21:00 Linagliptin (Tradjenta) 5 mg DAILY PO Last administered on 09/02/16 08:25; Admin Dose 5 MG; Start 08/26/16 at 09:00 Tamsulosin HCl (Flomax) 0.4 mg HS PO Last administered on 09/01/16 20:57; Admin Dose 0.4 MG; Start 08/25/16 at 21:00 Diagnostic Test (Pha) 1 ea 1 ea 02 XX Last administered on 09/01/16 03:00; Admin Dose 1 EA; Start 08/26/16 at 02:00 Sodium Chloride (NS) 1,000 ml @ 100 mls/hr Q10H IV Last administered on 03:44; Admin Dose 100 MLS/HR; Start 08/25/16 at 17:30 Miscellaneous Information 1 ea NOTE XX ; Start 08/27/16 at 10:00 Glucose (Glutose) 15 gm Q15M PRN PO DECREASED GLUCOSE; Start 08/27/16 at 10:00 Glucose (Glutose) 22.5 gm Q15M PRN PO DECREASED GLUCOSE; Start 08/27/16 at 10: 00 Dextrose (D50w Syringe) 25 ml Q15M PRN IV DECREASED GLUCOSE; Start 08/27/16 at 10:00 Dextrose (D50w Syringe) 50 ml Q15M PRN IV DECREASED GLUCOSE; Start 08/27/16 at 10:00 Glucagon (Glucagen) 1 mg Q15M PRN IM DECREASED GLUCOSE; Start 08/27/16 at 10:00 Glucose (Glutose) 15 gm Q15M PRN BUCCAL DECREASED GLUCOSE Last administered on 08/31/16 12:46; Admin Dose 15 GM; Start 08/27/16 at 10:00 Diphenhydramine HCl (Benadryl) 25 mg Q4H PRN IV ITCHING Last administered on 07:34; Admin Dose 25 MG; Start 08/27/16 at 10:00 Insulin Glargine 15 unit 15 unit QAM SC Last administered on 09/02/16 09:07; Admin Dose 15 UNIT; Start 08/30/16 at 09:00 Ceftriaxone Sodium (Rocephin) 50 ml @ 100 mls/hr Q24H IVPB Last administered on 09/01/16 17:43; Admin Dose 100 MLS/HR; Start 08/29/16 at 18:00; Stop at 17:59 LEON GIL September 02, 2016 11:31
--- NOTE | 2016-09-02 13:42 | CONS ---
Date/Time of Note Date/Time of Note DATE: 09/02/16 TIME: 13:41 Assessment/Plan Assessment/Plan Chief Complaint/Hosp Course SUBJECTIVE: No events overnight. No fevers. The patient is alert, feels good. INDWELLINGS: PICC ANTIMICROBIALS: He is on IV Rocephin. PHYSICAL EXAMINATION: GENERAL: This is a cachectic, middle-aged man who is awake, in no distress. HEENT: Head atraumatic, normocephalic. Sclerae anicteric. Buccal mucosa pink. NECK: Supple. CHEST: Rise symmetrical. Breath sounds clear. HEART: S1, S2. ABDOMEN: Soft, bowel sounds present. EXTREMITIES: Without cyanosis. ASSESSMENT: 1. Resolving sepsis. 2. Pneumonia with streptococcal bacteremia. 3. Diabetes. 4. History of ALL status post stem cell transplantation, in remission. PLAN: The patient remains stable, pending dc planning on IV Rocephin to complete 2 weeks IV antibiotics. DW pt Problems: Consultation Date/Type/Reason Admit Date/Time August 25, 2016 at 12:43 Initial Consult Date Type of Consultation: ID Exam/Review of Systems Vital Signs Vitals Vital Signs Date Time Temp Pulse Resp B/P Pulse Ox O2 Delivery O2 Flow Rate FiO2 09/02/16 07:31 98.7 106 19 134/93 99 08/31/16 15:05 Room Air Intake and Output 09/01/16 09/01/16 09/02/16 15:00 23:00 07:00 Intake Total 1850 ml 2150 ml Output Total 1500 ml 1700 ml Balance 350 ml 450 ml Results Result Diagram: 08/30/16 0451 08/30/16 0450 Results 24 hrs Laboratory Tests Test 09/01/16 17:45 09/01/16 21:00 09/02/16 08:27 09/02/16 12:30 Bedside Glucose 78 118 88 157 Medications Medications Current Medications Lorazepam (Ativan) 0.5 mg Q6H PRN IV ANXIETY; Start 08/25/16 at 14:30 Ondansetron HCl (Zofran Inj) 4 mg Q6H PRN IV NAUSEA AND/OR VOMITING; Start at 14:30 Acetaminophen (Tylenol Tab) 650 mg Q6H PRN PO PAIN LEVEL 1-3 OR FEVER; Start at 14:30 Acetaminophen/ Hydrocodone Bitart ([place] (5/325)) 2 tab Q6H PRN PO PAIN LEVEL 7 -10 Last administered on 08/30/16 16:33; Admin Dose 2 TAB; Start 08/25/16 at 14 :30 Hydromorphone HCl (Dilaudid) 1 mg Q4H PRN IV PAIN LEVEL 7-10 Last administered on 09/02/16 11:53; Admin Dose 1 MG; Start 08/25/16 at 14:30 Magnesium Hydroxide (Milk Of Mag) 30 ml DAILY PRN PO CONSTIPATION; Start at 14:30 Bisacodyl (Dulcolax) 5 mg DAILY PRN PO CONSTIPATION; Start 08/25/16 at 14:30 Famotidine (Pepcid) 20 mg Q12 PO Last administered on 09/02/16 08:25; Admin Dose 20 MG; Start 08/25/16 at 21:00 Enoxaparin Sodium (Lovenox) 40 mg DAILY SC Last administered on 09/02/16 09:27 ; Admin Dose 40 MG; Start 08/26/16 at 09:00; Status Future hold Gabapentin (Neurontin) 100 mg TID PO Last administered on 09/02/16 08:25; Admin Dose 100 MG; Start 08/25/16 at 21:00 Linagliptin (Tradjenta) 5 mg DAILY PO Last administered on 09/02/16 08:25; Admin Dose 5 MG; Start 08/26/16 at 09:00 Tamsulosin HCl (Flomax) 0.4 mg HS PO Last administered on 09/01/16 20:57; Admin Dose 0.4 MG; Start 08/25/16 at 21:00 Diagnostic Test (Pha) 1 ea 1 ea 02 XX Last administered on 09/01/16 03:00; Admin Dose 1 EA; Start 08/26/16 at 02:00 Sodium Chloride (NS) 1,000 ml @ 100 mls/hr Q10H IV Last administered on 03:44; Admin Dose 100 MLS/HR; Start 08/25/16 at 17:30 Miscellaneous Information 1 ea NOTE XX ; Start 08/27/16 at 10:00 Glucose (Glutose) 15 gm Q15M PRN PO DECREASED GLUCOSE; Start 08/27/16 at 10:00 Glucose (Glutose) 22.5 gm Q15M PRN PO DECREASED GLUCOSE; Start 08/27/16 at 10: 00 Dextrose (D50w Syringe) 25 ml Q15M PRN IV DECREASED GLUCOSE; Start 08/27/16 at 10:00 Dextrose (D50w Syringe) 50 ml Q15M PRN IV DECREASED GLUCOSE; Start 08/27/16 at 10:00 Glucagon (Glucagen) 1 mg Q15M PRN IM DECREASED GLUCOSE; Start 08/27/16 at 10:00 Glucose (Glutose) 15 gm Q15M PRN BUCCAL DECREASED GLUCOSE Last administered on 08/31/16 12:46; Admin Dose 15 GM; Start 08/27/16 at 10:00 Diphenhydramine HCl (Benadryl) 25 mg Q4H PRN IV ITCHING Last administered on 11:54; Admin Dose 25 MG; Start 08/27/16 at 10:00 Insulin Glargine 15 unit 15 unit QAM SC Last administered on 09/02/16 09:07; Admin Dose 15 UNIT; Start 08/30/16 at 09:00 Ceftriaxone Sodium (Rocephin) 50 ml @ 100 mls/hr Q24H IVPB Last administered on 09/01/16 17:43; Admin Dose 100 MLS/HR; Start 08/29/16 at 18:00; Stop at 17:59 RUSSELL NORRIS NP September 02, 2016 13:41
[2016-09-02] MEDS: CEFTRIAXONE 1 GM/50 ML (PMX) 50 ML IVPB SCH (17:53)
[2016-09-02] MEDS: TAMSULOSIN (SR) 0.4 MG CAP PO SCH (19:46)
[2016-09-02 20:08] VITALS: BP 158/94; RESP 20
[2016-09-03] MEDS: ACCU-CHEK XX SCH (02:00)
[2016-09-03] MEDS: DIPHENHYDRAMINE 50 MG INJ IV PRN ×6 (03:46→23:41)
[2016-09-03] MEDS: SOD CHLORIDE 0.9% 1,000 ML IV SCH ×4 (03:46→23:45)
[2016-09-03] MEDS: HYDROmorphONE 1 MG/ML SYG IV PRN ×6 (03:46→23:41)
[2016-09-03 07:25] VITALS: BP 135/93; RESP 19
[2016-09-03] MEDS: INSULIN ASPART [NOVOLOG] 3 ML PEN SC SCH ×7 (07:50→21:00)
[2016-09-03] MEDS: LINAGLIPTIN 5 MG TABLET PO SCH (08:42)
[2016-09-03] MEDS: FAMOTIDINE 20 MG TAB PO SCH ×2 (08:42→19:46)
[2016-09-03] MEDS: GABAPENTIN 100 MG CAP PO SCH ×3 (08:42→19:46)
[2016-09-03] MEDS: INSULIN GLARGINE [LANtus] 3 ML PEN SC SCH (08:48)
[2016-09-03] MEDS: ENOXAPARIN 40 MG/0.4 ML SYG SC SCH (08:48)
--- NOTE | 2016-09-03 12:55 | CONS ---
Date/Time of Note Date/Time of Note DATE: 09/03/16 TIME: 12:55 Assessment/Plan Assessment/Plan Chief Complaint/Hosp Course SUBJECTIVE: No events overnight. The patient is alert, feels good. INDWELLINGS: PICC ANTIMICROBIALS: Rocephin. PHYSICAL EXAMINATION: GENERAL: This is a cachectic, middle-aged man who is awake, in no distress. HEENT: Head atraumatic, normocephalic. Sclerae anicteric. Buccal mucosa pink. NECK: Supple. CHEST: Rise symmetrical. Breath sounds clear. HEART: S1, S2. ABDOMEN: Soft, bowel sounds present. EXTREMITIES: Without cyanosis. ASSESSMENT: 1. Resolving sepsis. 2. Pneumonia with streptococcal bacteremia. 3. Diabetes. 4. History of ALL status post stem cell transplantation, in remission. PLAN: The patient remains stable, pending dc on IV Rocephin to complete 2 weeks IV antibiotics. DW pt Problems: Consultation Date/Type/Reason Admit Date/Time August 25, 2016 at 12:43 Type of Consultation: ID Exam/Review of Systems Vital Signs Vitals Vital Signs Date Time Temp Pulse Resp B/P Pulse Ox O2 Delivery O2 Flow Rate FiO2 09/03/16 07:25 98.7 98 19 135/93 99 08/31/16 15:05 Room Air Intake and Output 09/02/16 09/02/16 09/03/16 15:00 23:00 07:00 Intake Total 1950 ml 1850 ml Output Total 1200 ml 1500 ml Balance 750 ml 350 ml Results Result Diagram: 08/30/16 0451 08/30/16 0450 Results 24 hrs Laboratory Tests Test 09/02/16 17:52 09/02/16 21:47 09/03/16 08:39 Bedside Glucose 97 156 169 Medications Medications Current Medications Lorazepam (Ativan) 0.5 mg Q6H PRN IV ANXIETY; Start 08/25/16 at 14:30 Ondansetron HCl (Zofran Inj) 4 mg Q6H PRN IV NAUSEA AND/OR VOMITING; Start at 14:30 Acetaminophen (Tylenol Tab) 650 mg Q6H PRN PO PAIN LEVEL 1-3 OR FEVER; Start at 14:30 Acetaminophen/ Hydrocodone Bitart ([place] (5/325)) 2 tab Q6H PRN PO PAIN LEVEL 7 -10 Last administered on 08/30/16 16:33; Admin Dose 2 TAB; Start 08/25/16 at 14 :30 Hydromorphone HCl (Dilaudid) 1 mg Q4H PRN IV PAIN LEVEL 7-10 Last administered on 09/03/16 11:49; Admin Dose 1 MG; Start 08/25/16 at 14:30 Magnesium Hydroxide (Milk Of Mag) 30 ml DAILY PRN PO CONSTIPATION; Start at 14:30 Bisacodyl (Dulcolax) 5 mg DAILY PRN PO CONSTIPATION; Start 08/25/16 at 14:30 Famotidine (Pepcid) 20 mg Q12 PO Last administered on 09/03/16 08:42; Admin Dose 20 MG; Start 08/25/16 at 21:00 Enoxaparin Sodium (Lovenox) 40 mg DAILY SC Last administered on 09/03/16 08:48 ; Admin Dose 40 MG; Start 08/26/16 at 09:00; Status Future hold Gabapentin (Neurontin) 100 mg TID PO Last administered on 09/03/16 08:42; Admin Dose 100 MG; Start 08/25/16 at 21:00 Linagliptin (Tradjenta) 5 mg DAILY PO Last administered on 09/03/16 08:42; Admin Dose 5 MG; Start 08/26/16 at 09:00 Tamsulosin HCl (Flomax) 0.4 mg HS PO Last administered on 09/02/16 19:46; Admin Dose 0.4 MG; Start 08/25/16 at 21:00 Diagnostic Test (Pha) 1 ea 1 ea 02 XX Last administered on 09/01/16 03:00; Admin Dose 1 EA; Start 08/26/16 at 02:00 Sodium Chloride (NS) 1,000 ml @ 100 mls/hr Q10H IV Last administered on 03:46; Admin Dose 100 MLS/HR; Start 08/25/16 at 17:30 Miscellaneous Information 1 ea NOTE XX ; Start 08/27/16 at 10:00 Glucose (Glutose) 15 gm Q15M PRN PO DECREASED GLUCOSE; Start 08/27/16 at 10:00 Glucose (Glutose) 22.5 gm Q15M PRN PO DECREASED GLUCOSE; Start 08/27/16 at 10: 00 Dextrose (D50w Syringe) 25 ml Q15M PRN IV DECREASED GLUCOSE; Start 08/27/16 at 10:00 Dextrose (D50w Syringe) 50 ml Q15M PRN IV DECREASED GLUCOSE; Start 08/27/16 at 10:00 Glucagon (Glucagen) 1 mg Q15M PRN IM DECREASED GLUCOSE; Start 08/27/16 at 10:00 Glucose (Glutose) 15 gm Q15M PRN BUCCAL DECREASED GLUCOSE Last administered on 08/31/16 12:46; Admin Dose 15 GM; Start 08/27/16 at 10:00 Diphenhydramine HCl (Benadryl) 25 mg Q4H PRN IV ITCHING Last administered on 11:48; Admin Dose 25 MG; Start 08/27/16 at 10:00 Insulin Glargine 15 unit 15 unit QAM SC Last administered on 09/03/16 08:48; Admin Dose 15 UNIT; Start 08/30/16 at 09:00 Ceftriaxone Sodium (Rocephin) 50 ml @ 100 mls/hr Q24H IVPB Last administered on 09/02/16 17:53; Admin Dose 100 MLS/HR; Start 08/29/16 at 18:00; Stop at 17:59 RUSSELL NORRIS NP September 03, 2016 12:55
--- NOTE | 2016-09-03 14:35 | PN ---
Date/Time of Note Date/Time of Note DATE: 09/03/16 TIME: 14:34 Assessment/Plan VTE Prophylaxis VTE Prophylaxis Intervention: ambulation, LMWH Lines/Catheters Urinary Cath still in place: No Assessment/Plan Chief Complaint/Hosp Course 1. Diabetes mellitus type 2 in nonobese Continue regimen 2. 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 Prophylaxis: Ambulation DC planning: Currently waiting for full scope Medi-Dominic in order to cover home health with IV antibiotics Problems: Subjective 24 Hr Interval Summary Constitutional: no complaints Exam/Review of Systems Vital Signs Vitals Vital Signs Date Time Temp Pulse Resp B/P Pulse Ox O2 Delivery O2 Flow Rate FiO2 09/03/16 07:25 98.7 98 19 135/93 99 08/31/16 15:05 Room Air Intake and Output 09/02/16 09/02/16 09/03/16 15:00 23:00 07:00 Intake Total 1950 ml 1850 ml Output Total 1200 ml 1500 ml Balance 750 ml 350 ml Exam Constitutional: alert Respiratory: clear to auscultation Cardiovascular: regular rate and rhythm Gastrointestinal: soft, No distended Musculoskeletal: nl extremities to inspection Results Result Diagram: 08/30/16 0451 08/30/16 0450 Results 24 hrs Laboratory Tests Test 09/02/16 17:52 09/02/16 21:47 09/03/16 08:39 09/03/16 12:55 Bedside Glucose 97 156 169 129 Medications Medications Current Medications Lorazepam (Ativan) 0.5 mg Q6H PRN IV ANXIETY; Start 08/25/16 at 14:30 Ondansetron HCl (Zofran Inj) 4 mg Q6H PRN IV NAUSEA AND/OR VOMITING; Start at 14:30 Acetaminophen (Tylenol Tab) 650 mg Q6H PRN PO PAIN LEVEL 1-3 OR FEVER; Start at 14:30 Acetaminophen/ Hydrocodone Bitart ([place] (5/325)) 2 tab Q6H PRN PO PAIN LEVEL 7 -10 Last administered on 08/30/16t 16:33; Admin Dose 2 TAB; Start 08/25/16 at 14 :30 Hydromorphone HCl (Dilaudid) 1 mg Q4H PRN IV PAIN LEVEL 7-10 Last administered on 09/03/16 11:49; Admin Dose 1 MG; Start 08/25/16 at 14:30 Magnesium Hydroxide (Milk Of Mag) 30 ml DAILY PRN PO CONSTIPATION; Start at 14:30 Bisacodyl (Dulcolax) 5 mg DAILY PRN PO CONSTIPATION; Start 08/25/16 at 14:30 Famotidine (Pepcid) 20 mg Q12 PO Last administered on 09/03/16 08:42; Admin Dose 20 MG; Start 08/25/16 at 21:00 Enoxaparin Sodium (Lovenox) 40 mg DAILY SC Last administered on 09/03/16 08:48 ; Admin Dose 40 MG; Start 08/26/16 at 09:00; Status Future hold Gabapentin (Neurontin) 100 mg TID PO Last administered on 09/03/16 12:57; Admin Dose 100 MG; Start 08/25/16 at 21:00 Linagliptin (Tradjenta) 5 mg DAILY PO Last administered on 09/03/16 08:42; Admin Dose 5 MG; Start 08/26/16 at 09:00 Tamsulosin HCl (Flomax) 0.4 mg HS PO Last administered on 09/02/16 19:46; Admin Dose 0.4 MG; Start 08/25/16 at 21:00 Diagnostic Test (Pha) 1 ea 1 ea 02 XX Last administered on 09/01/16 03:00; Admin Dose 1 EA; Start 08/26/16 at 02:00 Sodium Chloride (NS) 1,000 ml @ 100 mls/hr Q10H IV Last administered on 11:30; Admin Dose 100 MLS/HR; Start 08/25/16 at 17:30 Miscellaneous Information 1 ea NOTE XX ; Start 08/27/16 at 10:00 Glucose (Glutose) 15 gm Q15M PRN PO DECREASED GLUCOSE; Start 08/27/16 at 10:00 Glucose (Glutose) 22.5 gm Q15M PRN PO DECREASED GLUCOSE; Start 08/27/16 at 10: 00 Dextrose (D50w Syringe) 25 ml Q15M PRN IV DECREASED GLUCOSE; Start 08/27/16 at 10:00 Dextrose (D50w Syringe) 50 ml Q15M PRN IV DECREASED GLUCOSE; Start 08/27/16 at 10:00 Glucagon (Glucagen) 1 mg Q15M PRN IM DECREASED GLUCOSE; Start 08/27/16 at 10:00 Glucose (Glutose) 15 gm Q15M PRN BUCCAL DECREASED GLUCOSE Last administered on 08/31/16 12:46; Admin Dose 15 GM; Start 08/27/16 at 10:00 Diphenhydramine HCl (Benadryl) 25 mg Q4H PRN IV ITCHING Last administered on 11:48; Admin Dose 25 MG; Start 08/27/16 at 10:00 Insulin Glargine 15 unit 15 unit QAM SC Last administered on 09/03/16 08:48; Admin Dose 15 UNIT; Start 08/30/16 at 09:00 Ceftriaxone Sodium (Rocephin) 50 ml @ 100 mls/hr Q24H IVPB Last administered on 09/02/16 17:53; Admin Dose 100 MLS/HR; Start 08/29/16 at 18:00; Stop at 17:59 LEON GIL September 03, 2016 14:35
[2016-09-03] MEDS: CEFTRIAXONE 1 GM/50 ML (PMX) 50 ML IVPB SCH (17:42)
[2016-09-03] MEDS: TAMSULOSIN (SR) 0.4 MG CAP PO SCH (19:46)
[2016-09-03 20:45] VITALS: BP 129/83; RESP 20
[2016-09-03] MEDS: HYDROCODONE/APAP (5/325) TAB PO PRN (21:51)
[2016-09-04] MEDS: ACCU-CHEK XX SCH (02:00)
[2016-09-04] MEDS: HYDROmorphONE 1 MG/ML SYG IV PRN ×4 (03:52→16:19)
[2016-09-04] MEDS: DIPHENHYDRAMINE 50 MG INJ IV PRN ×4 (03:52→16:19)
[2016-09-04] MEDS: INSULIN ASPART [NOVOLOG] 3 ML PEN SC SCH ×6 (07:50→17:55)
[2016-09-04 08:10] VITALS: BP 138/88; RESP 20
[2016-09-04] MEDS: GABAPENTIN 100 MG CAP PO SCH ×2 (08:50→13:28)
[2016-09-04] MEDS: LINAGLIPTIN 5 MG TABLET PO SCH (08:50)
[2016-09-04] MEDS: FAMOTIDINE 20 MG TAB PO SCH (08:50)
[2016-09-04] MEDS: INSULIN GLARGINE [LANtus] 3 ML PEN SC SCH (08:51)
[2016-09-04 12:47] LABS: ADD SCAN DIFF NO
[2016-09-04 12:57] LABS: BASOPHILS % 0.2 % (0.0-2.0); EOSINOPHILS # 0.3 10^3/ul (0.0-0.5); EOSINOPHILS % 2.5 % (0.0-7.0); HEMATOCRIT 30.6 % (42.0-52.0); HEMOGLOBIN 9.5 g/dl (14.0-18.0); LYMPHOCYTES # 1.9 10^3/ul (0.8-2.9); LYMPHOCYTES % 16.4 % (15.0-51.0); MEAN CORPUSCULAR HEMOGLOBIN 30.4 pg (29.0-33.0); MEAN CORPUSCULAR VOLUME 97.8 fl (82.0-101.0); MEAN PLATELET VOLUME 9.9 fl (7.4-10.4); MONOCYTE # 0.6 10^3/ul (0.3-0.9); MONOCYTES % 4.9 % (0.0-11.0); NEUTROPHIL # 8.9 10^3/ul (1.6-7.5); NEUTROPHILS % 75.7 % (39.0-77.0); PLATELET COUNT 288 10^3/UL (140-415); RED BLOOD COUNT 3.13 10^6/ul (4.70-6.10); RED CELL DISTRIBUTION WIDTH 13.1 % (11.5-14.5); WHITE BLOOD COUNT 11.8 10^3/ul (4.8-10.8)
--- NOTE | 2016-09-04 13:01 | CONS ---
Date/Time of Note Date/Time of Note DATE: 09/04/16 TIME: 13:00 Assessment/Plan Assessment/Plan Chief Complaint/Hosp Course SUBJECTIVE: No events overnight. The patient is alert, feels good. INDWELLINGS: PICC ANTIMICROBIALS: Rocephin. PHYSICAL EXAMINATION: GENERAL: This is a cachectic, middle-aged man who is awake, in no distress. HEENT: Head atraumatic, normocephalic. Sclerae anicteric. Buccal mucosa pink. NECK: Supple. CHEST: Rise symmetrical. Breath sounds clear. HEART: S1, S2. ABDOMEN: Soft, bowel sounds present. EXTREMITIES: Without cyanosis. ASSESSMENT: 1. Resolving sepsis. 2. Pneumonia with streptococcal bacteremia. 3. Diabetes. 4. History of ALL status post stem cell transplantation, in remission. PLAN: The patient remains stable, continue IV Rocephin for 5 more days DW pt Problems: Consultation Date/Type/Reason Admit Date/Time August 25, 2016 at 12:43 Type of Consultation: ID Exam/Review of Systems Vital Signs Vitals Vital Signs Date Time Temp Pulse Resp B/P Pulse Ox O2 Delivery O2 Flow Rate FiO2 09/04/16 08:10 98.0 101 20 138/88 99 08/31/16 15:05 Room Air Intake and Output 09/03/16 09/03/16 09/04/16 14:59 22:59 06:59 Intake Total 850 ml 1730 ml 2000 ml Output Total 2000 ml 1950 ml Balance 850 ml -270 ml 50 ml Results Results 24 hrs Laboratory Tests Test 09/03/16 14:39 09/03/16 17:41 09/03/16 21:52 09/04/16 08:10 Bedside Glucose 77 113 176 121 Medications Medications Current Medications Lorazepam (Ativan) 0.5 mg Q6H PRN IV ANXIETY; Start 08/25/16 at 14:30 Ondansetron HCl (Zofran Inj) 4 mg Q6H PRN IV NAUSEA AND/OR VOMITING; Start at 14:30 Acetaminophen (Tylenol Tab) 650 mg Q6H PRN PO PAIN LEVEL 1-3 OR FEVER; Start at 14:30 Acetaminophen/ Hydrocodone Bitart ([place] (5/325)) 2 tab Q6H PRN PO PAIN LEVEL 7 -10 Last administered on 09/03/16t 21:51; Admin Dose 2 TAB; Start 08/25/16 at 14 :30 Hydromorphone HCl (Dilaudid) 1 mg Q4H PRN IV PAIN LEVEL 7-10 Last administered on 09/04/16 12:09; Admin Dose 1 MG; Start 08/25/16 at 14:30 Magnesium Hydroxide (Milk Of Mag) 30 ml DAILY PRN PO CONSTIPATION; Start at 14:30 Bisacodyl (Dulcolax) 5 mg DAILY PRN PO CONSTIPATION; Start 08/25/16 at 14:30 Famotidine (Pepcid) 20 mg Q12 PO Last administered on 09/04/16 08:50; Admin Dose 20 MG; Start 08/25/16 at 21:00 Gabapentin (Neurontin) 100 mg TID PO Last administered on 09/04/16 08:50; Admin Dose 100 MG; Start 08/25/16 at 21:00 Linagliptin (Tradjenta) 5 mg DAILY PO Last administered on 09/04/16 08:50; Admin Dose 5 MG; Start 08/26/16 at 09:00 Tamsulosin HCl (Flomax) 0.4 mg HS PO Last administered on 09/03/16 19:46; Admin Dose 0.4 MG; Start 08/25/16 at 21:00 Diagnostic Test (Pha) 1 ea 1 ea 02 XX Last administered on 09/01/16 03:00; Admin Dose 1 EA; Start 08/26/16 at 02:00 Sodium Chloride (NS) 1,000 ml @ 100 mls/hr Q10H IV Last administered on 23:45; Admin Dose 100 MLS/HR; Start 08/25/16 at 17:30 Miscellaneous Information 1 ea NOTE XX ; Start 08/27/16 at 10:00 Glucose (Glutose) 15 gm Q15M PRN PO DECREASED GLUCOSE; Start 08/27/16 at 10:00 Glucose (Glutose) 22.5 gm Q15M PRN PO DECREASED GLUCOSE; Start 08/27/16 at 10: 00 Dextrose (D50w Syringe) 25 ml Q15M PRN IV DECREASED GLUCOSE; Start 08/27/16 at 10:00 Dextrose (D50w Syringe) 50 ml Q15M PRN IV DECREASED GLUCOSE; Start 08/27/16 at 10:00 Glucagon (Glucagen) 1 mg Q15M PRN IM DECREASED GLUCOSE; Start 08/27/16 at 10:00 Glucose (Glutose) 15 gm Q15M PRN BUCCAL DECREASED GLUCOSE Last administered on 08/31/16 12:46; Admin Dose 15 GM; Start 08/27/16 at 10:00 Diphenhydramine HCl (Benadryl) 25 mg Q4H PRN IV ITCHING Last administered on 12:09; Admin Dose 25 MG; Start 08/27/16 at 10:00 Insulin Glargine 15 unit 15 unit QAM SC Last administered on 09/04/16 08:51; Admin Dose 15 UNIT; Start 08/30/16 at 09:00 Ceftriaxone Sodium (Rocephin) 50 ml @ 100 mls/hr Q24H IVPB Last administered on 09/03/16 17:42; Admin Dose 100 MLS/HR; Start 08/29/16 at 18:00; Stop at 17:59 RUSSELL NORRIS NP September 04, 2016 13:01
[2016-09-04 13:21] LABS: CREATININE 0.88 mg/dl (0.61-1.24)
[2016-09-04 13:22] LABS: CALCIUM 8.8 mg/dl (8.4-10.2); MAGNESIUM 1.6 mg/dl (1.7-2.5); PHOSPHORUS 3.8 mg/dl (2.5-4.9); POTASSIUM 6.2 mmol/L (3.5-5.1)
--- NOTE | 2016-09-04 13:28 | QN ---
Documentation Comment Pt stable and will be getting outpatient antibiotics. Hematologically in remission. We will sign off but please recontact if we can be of help. 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 VIELKA WELLINGTON MD September 04, 2016 13:28
--- NOTE | 2016-09-04 14:06 | PN ---
Date/Time of Note Date/Time of Note DATE: 09/04/16 TIME: 14:05 Assessment/Plan VTE Prophylaxis VTE Prophylaxis Intervention: ambulation Lines/Catheters Urinary Cath still in place: No Assessment/Plan Chief Complaint/Hosp Course 1. Diabetes mellitus type 2 in nonobese Continue regimen 2. 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 Prophylaxis: Ambulation DC planning: Currently waiting for full scope [facility] in order to cover home health with IV antibiotics Problems: Subjective 24 Hr Interval Summary Constitutional: no complaints Exam/Review of Systems Vital Signs Vitals Vital Signs Date Time Temp Pulse Resp B/P Pulse Ox O2 Delivery O2 Flow Rate FiO2 09/04/16 08:10 98.0 101 20 138/88 99 08/31/16 15:05 Room Air Intake and Output 09/03/16 09/03/16 09/04/16 15:00 23:00 07:00 Intake Total 850 ml 1730 ml 2000 ml Output Total 2000 ml 1950 ml Balance 850 ml -270 ml 50 ml Exam Constitutional: alert, oriented Respiratory: clear to auscultation Cardiovascular: regular rate and rhythm Gastrointestinal: soft, No distended Musculoskeletal: nl extremities to inspection Results Result Diagram: 09/04/16 1220 09/04/16 1220 Results 24 hrs Laboratory Tests Test 09/03/16 14:39 09/03/16 17:41 09/03/16 21:52 09/04/16 08:10 Bedside Glucose 77 113 176 121 Test 09/04/16 12:20 09/04/16 13:18 White Blood Count 11.8 H Red Blood Count 3.13 L Hemoglobin 9.5 L Hematocrit 30.6 L Mean Corpuscular Volume 97.8 Mean Corpuscular Hemoglobin 30.4 Mean Corpuscular Hemoglobin Concent 31.0 L Red Cell Distribution Width 13.1 Platelet Count 288 # Mean Platelet Volume 9.9 Neutrophils % 75.7 Lymphocytes % 16.4 Monocytes % 4.9 Eosinophils % 2.5 Basophils % 0.2 Nucleated Red Blood Cells % 0.0 Neutrophils # 8.9 H Lymphocytes # 1.9 Monocytes # 0.6 Eosinophils # 0.3 Basophils # 0.0 Nucleated Red Blood Cells # 0.0 Sodium Level 138 Potassium Level 6.2 *H Chloride Level 103 Carbon Dioxide Level 23 Anion Gap 18 H Blood Urea Nitrogen 24 H Creatinine 0.88 Glucose Level 228 H Calcium Level 8.8 Phosphorus Level 3.8 Magnesium Level 1.6 L Bedside Glucose 193 Medications Medications Current Medications Lorazepam (Ativan) 0.5 mg Q6H PRN IV ANXIETY; Start 08/25/16 at 14:30 Ondansetron HCl (Zofran Inj) 4 mg Q6H PRN IV NAUSEA AND/OR VOMITING; Start at 14:30 Acetaminophen (Tylenol Tab) 650 mg Q6H PRN PO PAIN LEVEL 1-3 OR FEVER; Start at 14:30 Acetaminophen/ Hydrocodone Bitart ([place] (5/325)) 2 tab Q6H PRN PO PAIN LEVEL 7 -10 Last administered on 09/03/16 21:51; Admin Dose 2 TAB; Start 08/25/16 at 14 :30 Hydromorphone HCl (Dilaudid) 1 mg Q4H PRN IV PAIN LEVEL 7-10 Last administered on 09/04/16 12:09; Admin Dose 1 MG; Start 08/25/16 at 14:30 Magnesium Hydroxide (Milk Of Mag) 30 ml DAILY PRN PO CONSTIPATION; Start at 14:30 Bisacodyl (Dulcolax) 5 mg DAILY PRN PO CONSTIPATION; Start 08/25/16 at 14:30 Famotidine (Pepcid) 20 mg Q12 PO Last administered on 09/04/16 08:50; Admin Dose 20 MG; Start 08/25/16 at 21:00 Gabapentin (Neurontin) 100 mg TID PO Last administered on 09/04/16 13:28; Admin Dose 100 MG; Start 08/25/16 at 21:00 Linagliptin (Tradjenta) 5 mg DAILY PO Last administered on 09/04/16 08:50; Admin Dose 5 MG; Start 08/26/16 at 09:00 Tamsulosin HCl (Flomax) 0.4 mg HS PO Last administered on 09/03/16 19:46; Admin Dose 0.4 MG; Start 08/25/16 at 21:00 Diagnostic Test (Pha) 1 ea 1 ea 02 XX Last administered on 09/01/16 03:00; Admin Dose 1 EA; Start 08/26/16 at 02:00 Sodium Chloride (NS) 1,000 ml @ 100 mls/hr Q10H IV Last administered on 23:45; Admin Dose 100 MLS/HR; Start 08/25/16 at 17:30 Miscellaneous Information 1 ea NOTE XX ; Start 08/27/16 at 10:00 Glucose (Glutose) 15 gm Q15M PRN PO DECREASED GLUCOSE; Start 08/27/16 at 10:00 Glucose (Glutose) 22.5 gm Q15M PRN PO DECREASED GLUCOSE; Start 08/27/16 at 10: 00 Dextrose (D50w Syringe) 25 ml Q15M PRN IV DECREASED GLUCOSE; Start 08/27/16 at 10:00 Dextrose (D50w Syringe) 50 ml Q15M PRN IV DECREASED GLUCOSE; Start 08/27/16 at 10:00 Glucagon (Glucagen) 1 mg Q15M PRN IM DECREASED GLUCOSE; Start 08/27/16 at 10:00 Glucose (Glutose) 15 gm Q15M PRN BUCCAL DECREASED GLUCOSE Last administered on 08/31/16 12:46; Admin Dose 15 GM; Start 08/27/16 at 10:00 Diphenhydramine HCl (Benadryl) 25 mg Q4H PRN IV ITCHING Last administered on 12:09; Admin Dose 25 MG; Start 08/27/16 at 10:00 Insulin Glargine 15 unit 15 unit QAM SC Last administered on 09/04/16 08:51; Admin Dose 15 UNIT; Start 08/30/16 at 09:00 Ceftriaxone Sodium (Rocephin) 50 ml @ 100 mls/hr Q24H IVPB Last administered on 09/03/16 17:42; Admin Dose 100 MLS/HR; Start 08/29/16 at 18:00; Stop at 17:59 LEON GIL September 04, 2016 14:06
[2016-09-04 15:26] LABS: POTASSIUM 5.5 mmol/L (3.5-5.1)
[2016-09-04 15:29] LABS: CREATININE 0.88 mg/dl (0.61-1.24)
[2016-09-04 15:30] LABS: CALCIUM 8.9 mg/dl (8.4-10.2); MAGNESIUM 1.7 mg/dl (1.7-2.5)
[2016-09-04] MEDS ORDERED: TAMS0.4C2 PO (17:07)
[2016-09-04] MEDS ORDERED: INSU100C SQ (17:07)
[2016-09-04] MEDS ORDERED: LINA5TAB PO (17:07)
[2016-09-04] MEDS ORDERED: LANT3I SC (17:07)
[2016-09-04] MEDS ORDERED: GABA100C14 PO (17:07)
[2016-09-04] MEDS: CEFTRIAXONE 1 GM/50 ML (PMX) 50 ML IVPB SCH (17:29)
[2016-09-04] MEDS: SOD CHLORIDE 0.9% 1,000 ML IV SCH (17:30)
[2016-09-04] MEDS ORDERED: MAGNESIUM OXIDE 400 MG TAB PO ONE (17:30)
[2016-09-04] MEDS: HYDROCODONE/APAP (5/325) TAB PO PRN (18:48)
--- NOTE | 2016-09-05 18:18 | DS ---
DATE OF ADMISSION: 08/25/2016 DATE OF DISCHARGE: 09/04/2016 DISCHARGE DIAGNOSES: 1. Diabetes type 2, nonobese, discharged with insulin regimen. 2. Streptococcus pneumoniae with bacteremia, continue Rocephin until 09/12/2016 via home health. 3. Acute lymphocytic leukemia in remission, status post stem cell transplant in the past. HOSPITAL COURSE: The patient is a 31-year-old male with a history of ALL, status post stem cell tra nsplant, type 2 diabetes, and diabetic gastroparesis. The patient presents with generalized body ac hes and fever. The patient also had a productive cough with clear white sputum production. The pat ient was found to have sepsis secondary to underlying community-acquired pneumonia. The patient did have a blood culture that showed strep pneumoniae in 2/2 cultures. The patient's chest x-ray on [facility] showed right lower lobe pneumonia. The patient was seen by ID. The patient was seen by hemat ology/oncology for his history of ALL, which is in remission. ID recommended antibiotic coverage un til 09/12/2016. A PICC line was placed and home health was arranged for the patient. On the day of discharge, the patient's vitals, labs, physical exam were stable. He had no acute complaints. Que stions were answered. CONDITION ON DISCHARGE: Stable. DISPOSITION: To home with home health. MEDICATIONS: 1. The patient was given refills for his insulin. He was given Lantus 15 units subq q.a.m., NovoL og sliding scale. 2. Tradjenta 5 mg daily. 3. Flomax 0.4 at bedtime. 4. Gabapentin 100 t.i.d. 5. Rocephin 1 gram daily until 09/12/2016, to be given by home health. The patient had no reported home medications as he had run out of all his home medications, and the medications listed above were refills of his home medications. FOLLOWUP: The patient is to follow up with his PCP in 1 to 2 weeks and with home health agency. Greater than 30 minutes was spent coordinating discharge of patient. Dictated By: LEON GIL MD BS/NTS Conf#: [id number] DID#: [id number]
== END 2016-09-04 19:06 | disposition home health service (06) | DRG 871 ==
LOC: E/R 09:13 → MS4 12:43 → MS1 08-27 06:40
PROVIDERS: ADMIT Family Medicine; ATTEND Family Medicine
PROC: 02HV33Z Insertion of Infusion Device into Superior Vena Cava, Percutaneous Approach (ICD-10-PCS; principal; 2016-08-31)
DX: A40.3 Sepsis due to Streptococcus pneumoniae (principal); J18.9 Pneumonia, unspecified organism; K31.84 Gastroparesis; Z94.84 Stem cells transplant status; E11.40 Type 2 diabetes mellitus with diabetic neuropathy, unspecified; C91.01 Acute lymphoblastic leukemia, in remission; E11.43 Type 2 diabetes mellitus with diabetic autonomic (poly)neuropathy; D63.8 Anemia in other chronic diseases classified elsewhere; N40.0 Benign prostatic hyperplasia without lower urinary tract symptoms; Z79.4 Long term (current) use of insulin; Z92.21 Personal history of antineoplastic chemotherapy
CPT/HCPCS: 36415; 36569; 71010; 71250; 76937; 80048; 80053; 80061; 80202; 82728; 82784; 82962; 83036; 83540; 83605; 83735; 84100; 84439; 84443; 84484; 85025; 85610; 85730; 86320; 87040; 87045; 87075; 87400; 93005; 96374; 96375; 96376; J0692; J0696; J1170; J1200; J1650; J1815; J1956; J2405; J3370; J7030

== ENCOUNTER 2016-11-08 11:47 | Emergency (ER) | payer MEDICAID ==
[~2016-11-08] VITALS: Ht 180.3 cm; Wt 61.4 kg
[~2016-11-08 11:47] MED LIST changes: +LINA5TAB PO; +TAMS0.4C2 PO
[2016-11-08 11:50] VITALS: Ht 180.3 cm; Wt 61.4 kg
[2016-11-08] MEDS ORDERED: SOD CHLORIDE 0.9% 1,000 ML IV STA (12:16)
[2016-11-08 12:48] LABS: Allen Test ACCEPTAB; MODE ROOM AIR; MetHgb Venous 0.3 %; Sample Type Blood venous; Venous COHb 2.9 %; Venous Fraction OxyHgb 66.1 %
[2016-11-08 12:53] LABS: BASOPHILS % 0.2 % (0.0-2.0); EOSINOPHILS # 0.2 10^3/ul (0.0-0.5); EOSINOPHILS % 1.4 % (0.0-7.0); HEMATOCRIT 30.1 % (42.0-52.0); HEMOGLOBIN 10.6 g/dl (14.0-18.0); LYMPHOCYTES # 2.4 10^3/ul (0.8-2.9); LYMPHOCYTES % 16.2 % (15.0-51.0); MEAN CORPUSCULAR HGB CONC 35.2 g/dl (32.0-37.0); MEAN CORPUSCULAR VOLUME 90.9 fl (82.0-101.0); MEAN PLATELET VOLUME 10.7 fl (7.4-10.4); MONOCYTE # 0.9 10^3/ul (0.3-0.9); NEUTROPHIL # 11.1 10^3/ul (1.6-7.5); NEUTROPHILS % 75.7 % (39.0-77.0); PLATELET COUNT 144 10^3/UL (140-415); RED BLOOD COUNT 3.31 10^6/ul (4.70-6.10); RED CELL DISTRIBUTION WIDTH 12.3 % (11.5-14.5); WHITE BLOOD COUNT 14.6 10^3/ul (4.8-10.8)
[2016-11-08 13:13] LABS: ALBUMIN 4.6 g/dl (3.3-4.9); ALBUMIN/GLOBULIN RATIO 1.7; BILIRUBIN,INDIRECT 0.1 mg/dl (0-1.1); BILIRUBIN,TOTAL 0.1 mg/dl (0.2-1.3); CALCIUM 9.8 mg/dl (8.4-10.2); CREATININE 1.02 mg/dl (0.61-1.24); POTASSIUM 4.4 mmol/L (3.5-5.1); TOTAL PROTEIN 7.3 g/dl (6.1-8.1)
--- NOTE | 2016-11-08 13:28 | RADRPT ---
PROCEDURE: Left knee radiographs. CLINICAL INDICATION: Left knee pain. TECHNIQUE: Three views. Weight bearing. Frontal, lateral, and patellar view. COMPARISON: No prior studies are available for comparison. FINDINGS: There is a probable acute nondisplaced vertical fracture of the patella. There is no other fracture and there is no dislocation. There is a large joint effusion with fluid in the suprapatellar bursa. Vascular calcifications are present. Articular surfaces are intact. There is no lytic or blastic lesion. There is no radiopaque foreign body. IMPRESSION: 1. Large joint effusion. 2. Vascular calcifications consistent with atherosclerosis. 3. Probable nondisplaced fracture of the patella. Correlation with CT scan advised. 4. Otherwise unremarkable study. RPTAT: QQ .Tay Davidson MD, Date Time Electronically viewed and signed by .Tay Davidson MD, on 11/08/2016 13:28 .R/
[2016-11-08] MEDS ORDERED: KETOROLAC 30 MG INJ IV STA (13:31)
[2016-11-08] MEDS ORDERED: HYDROmorphONE 1 MG/ML SYG IV STA (14:14)
[2016-11-08] MEDS ORDERED: ELEC100080 PO (14:43)
[2016-11-08] MEDS ORDERED: HYDR-906 PO (14:44)
[2016-11-08 15:40] LABS: ADD UMIC YES; UR ASCORBIC ACID NEGATIVE (NEGATIVE); UR BACTERIA FEW /HPF (NONE SEEN); UR BILIRUBIN (Dip) NEGATIVE (NEGATIVE); UR BLOOD (Dip) NEGATIVE (NEGATIVE); UR CLARITY CLEAR (CLEAR); UR COLOR YELLOW (YELLOW); UR GLUCOSE (Dip) 3+ mg/dL (NEGATIVE); UR KETONES (Dip) NEGATIVE (NEGATIVE); UR LEUKOCYTE ESTERASE (Dip) NEGATIVE Leu/ul (NEGATIVE); UR NITRITE (Dip) NEGATIVE (NEGATIVE); UR RBC 0 /HPF (0-5); UR SPECIFIC GRAVITY (Dip) 1.012 (1.003-1.030); UR TOTAL PROTEIN (Dip) 1+ mg/dl (NEGATIVE); UR UROBILINOGEN (Dip) NEGATIVE (NEGATIVE)
--- NOTE | 2016-11-08 16:00 | ERD ---
ER Documentation Chief Complaint Date/Time DATE: 11/08/16 TIME: 15:53 Chief Complaint left knee pain, pt hit himself with furniture, diarrhea HPI Patient is a 31-year-old male here with a past medical history of ALL and DM type I here with mother and sister who presents to the ED with watery diarrhea, non blood non black non tarry x 4 days. Denies fevers, chills. Denies vomiting. Denies headache or dizziness. Denies chest pain or cough or shortness of breath. Denies leg pain or leg swelling. States that his sugars are well controlled and patient is on insulin. Patient has had a history of DKA in the past. Patient states that he was diagnosed with AML L at the age of 19 and received his stem cell transplant 5 years ago. He denies travels. Denies change in foods. No other complaints. ROS All systems reviewed and are negative except as per history of present illness. Medications Home Meds Active Scripts Hydrocodone/Acetaminophen ([place] 5-325 Tablet) 1 Each Tablet, 1 TAB PO Q6H Y for PAIN, #7 TAB Prov:MIRTA PITT PA-C 11/08/16 Electrolyte,Oral (Pedialyte) 1,000 Ml Solution, 100 ML PO Q6 Y for DIARRHEA for 30 Days, ML Prov:MIRTA PITT PA-C 11/08/16 Linagliptin (TRADJENTA) 5 Mg Tablet, 5 MG PO DAILY, #90 TAB 1 Refill Prov:LEON GIL 09/04/16 Tamsulosin Hcl* (Tamsulosin Hcl*) 0.4 Mg Cap.er.24h, 0.4 MG PO HS, #60 CAP 1 Refill Prov:LOUISELEON ABBOTT 09/04/16 Gabapentin* (Gabapentin*) 100 Mg Capsule, 100 MG PO TID, #42 CAP 2 Refills Prov:LOUISELEON ABBOTT 09/04/16 Insulin Lispro (Humalog) 100 Unit/1 Ml Cartridge, 0 SQ SLIDING SCALES, #1 VIAL 2 Refills WITH MEALS Prov:LOUISELEON ABBOTT 09/04/16 Insulin Glargine* (Lantus*) 100 Unit/Ml Soln, 15 UNIT SC QAM, #1 VIAL 2 Refills Prov:LOUISELEON ABBOTT 09/04/16 Allergies Allergies: Coded Allergies: morphine (Verified Adverse Reaction, Severe, redness/itchiness, 08/24/16) PMhx/Soc History of Surgery: Yes (left pinky toe amputation 2013, removed port a cath 2015) Anesthesia Reaction: No Hx Neurological Disorder: No Hx Respiratory Disorders: No Hx Cardiac Disorders: No Hx Psychiatric Problems: No Hx Miscellaneous Medical Probl: Yes (leukemia 2004, diabetes) Hx Alcohol Use: No Hx Substance Use: Yes (medical marijuana ) Hx Tobacco Use: No Smoking Status: Never smoker Physical Exam Vitals Vital Signs Date Time Temp Pulse Resp B/P Pulse Ox O2 Delivery O2 Flow Rate FiO2 11/08/16 11:50 98.3 99 19 102/56 100 Physical Exam GENERAL: Well-developed, well-nourished male. Appears in no acute distress. thin pale. HEAD: Normocephalic, atraumatic. EYES: Pupils are equally reactive bilaterally. EOMs grossly intact. No conjunctival erythema. ENT: Moist mucous membranes. No uvula deviation. No kissing tonsils. No exudates. NECK: Supple. No lymphadenopathy or thyromegaly. No meningismus. negative kernig. negative brudinski. LUNG: Clear to auscultation bilaterally. No rhonchi, wheezing, rales or coarse breath sounds. HEART: Regular rate and rhythm. No murmurs, rubs or gallops. ABDOMEN: No scars, ecchymosis or rashes noted. Soft, and nondistended. Positive bowel sounds in all four quadrants. No rebound tenderness, no guarding. (-) McBurneys point tenderness. No CVA tenderness. No focal tenderness. Mild tenderness throughout abdomen. BACK: No midline tenderness. Extremities: Equal pulses bilaterally. No peripheral clubbing, cyanosis or edema. No unilateral leg swelling. Left knee is swollen with a superficial abrasion. No warmth or erythema. Pain with flexion and extension. No pain above or below the knee joint. NEUROLOGIC: Alert and oriented. Moving all four extremities. 5/5 strength in all extremities. Normal speech. unSteady gait. SKIN: Normal color. Warm and dry. No rashes or lesions. Capillary refill < 2 seconds Result Diagram: 11/08/16 1242 11/08/16 1242 Results 24 hrs Laboratory Tests Test 11/08/16 12:16 11/08/16 12:42 11/08/16 13:29 11/08/16 15:04 Blood Gas Specimen Source Blood venous Arterial Blood Date Drawn 11/08/2016 12:40:42 PM Arterial Blood Gas Puncture Site VENOUS LINE Rob Test ACCEPTAB Venous Blood pH 7.393 Venous Blood pCO2 (Temp Corrected) 41.9mmHG Venous Blood pO2 (Temp Corrected) 33.5mmHG Venous Blood HCO3 25.0mmol/L Venous Blood Oxygen Saturation 68.3mmHG Venous Blood Base Excess 0mmol/L Venous Blood Total Hemoglobin 12.0g/dl Venous Blood Oxyhemoglobin 66.1% Venous Blood Methemoglobin 0.3% Carboxyhemoglobin 2.9% Blood Gas Temperature 37.0C Blood Gas Modality ROOM AIR FiO2 21.0% Blood Gas Notified Whom RT Blood Gas Notified Time 11/08/2016 12:48:20 PM White Blood Count 14.610^3/ul Red Blood Count 3.3110^6/ul Hemoglobin 10.6g/dl Hematocrit 30.1% Mean Corpuscular Volume 90.9fl Mean Corpuscular Hemoglobin 32.0pg Mean Corpuscular Hemoglobin Concent 35.2g/dl Red Cell Distribution Width 12.3% Platelet Count 38035^3/UL Mean Platelet Volume 10.7fl Neutrophils % 75.7% Lymphocytes % 16.2% Monocytes % 6.0% Eosinophils % 1.4% Basophils % 0.2% Nucleated Red Blood Cells % 0.0/100WBC Neutrophils # 11.110^3/ul Lymphocytes # 2.410^3/ul Monocytes # 0.910^3/ul Eosinophils # 0.210^3/ul Basophils # 0.010^3/ul Nucleated Red Blood Cells # 0.010^3/ul Sodium Level 143mmol/L Potassium Level 4.4mmol/L Chloride Level 101mmol/L Carbon Dioxide Level 26mmol/L Anion Gap 20 Blood Urea Nitrogen 25mg/dl Creatinine 1.02mg/dl Glucose Level 79mg/dl Calcium Level 9.8mg/dl Total Bilirubin 0.1mg/dl Direct Bilirubin 0.00mg/dl Indirect Bilirubin 0.1mg/dl Aspartate Amino Transf (AST/SGOT) 26IU/L Alanine Aminotransferase (ALT/SGPT) 38IU/L Alkaline Phosphatase 54IU/L Total Protein 7.3g/dl Albumin 4.6g/dl Globulin 2.70g/dl Albumin/Globulin Ratio 1.70 Lipase 96U/L Bedside Glucose 60mg/dL Urine Color YELLOW Urine Clarity CLEAR Urine pH 5.0 Urine Specific [place] 1.012 Urine Ketones NEGATIVEmg/dL Urine Nitrite NEGATIVEmg/dL Urine Bilirubin NEGATIVEmg/dL Urine Urobilinogen NEGATIVEmg/dL Urine Leukocyte Esterase NEGATIVELeu/ul Urine Microscopic RBC 0/HPF Urine Microscopic WBC 0/HPF Urine Bacteria FEW/HPF Urine Hemoglobin NEGATIVEmg/dL Urine Glucose 3+mg/dL Urine Total Protein 1+mg/dl Current Medications Medications (Trade) Dose Ordered Sig/Brianna Route PRN Reason Start Time Stop Time Status Last Admin Dose Admin Sodium Chloride (NS) 1,000 ml @ 1,000 mls/hr Q1H STAT IV 11/08/16 12:16 11/08/16 13:15 DC 11/08/16 12:53 Ketorolac Tromethamine (Toradol) 30 mg ONCE STAT IV 11/08/16 13:31 11/08/16 13:32 DC 11/08/16 13:38 Hydromorphone HCl (Dilaudid) 1 mg ONCE STAT IV 11/08/16 14:14 11/08/16 14:15 DC 11/08/16 14:30 Procedures/MDM ER COURSE: I kept the patient and/or family informed of laboratory and diagnostic imaging results throughout the emergency room course. EKG, MONITORS, & DIAGNOSTIC IMAGING: [place] [id number] Radiology Main Line: [phone] DIAGNOSTIC IMAGING REPORT Patient: CHRISTINE HOLLAND : 1985 Age: 31 Sex: M MR #: [id number] DOS: 11/08/16 1222 Ordering MD: MIRTA PITT PA-C Location: [facility] Room/Bed: PROCEDURE: Left knee radiographs. CLINICAL INDICATION: Left knee pain. TECHNIQUE: Three views. Weight bearing. Frontal, lateral, and patellar view. COMPARISON: No prior studies are available for comparison. FINDINGS: There is a probable acute nondisplaced vertical fracture of the patella. There is no other fracture and there is no dislocation. There is a large joint effusion with fluid in the suprapatellar bursa. Vascular calcifications are present. Articular surfaces are intact. There is no lytic or blastic lesion. There is no radiopaque foreign body. IMPRESSION: 1. Large joint effusion. 2. Vascular calcifications consistent with atherosclerosis. 3. Probable nondisplaced fracture of the patella. Correlation with CT scan advised. 4. Otherwise unremarkable study. RPTAT: QQ .Tay Davidson MD, MD Date Time Electronically viewed and signed by .Tay Davidson MD, MD on 11/08/2016 13:28 .R/ CC: MIRTA PITT PA-C PROCEDURES: Uriah wrap and crutches. Neurovascular intact post placement. MEDICATIONS: Toradol, fluids, Dilaudid. Tolerated well with no adverse reaction. Improvement in symptoms. LAB INTERPRETATION: CBC showed no evidence of systemic infection or severe anemia. CMP showed no evidence of electrolyte abnormalities, severe acidosis, alkalosis, renal failure , or liver disease. Lipase showed no evidence of acute pancreatitis. UA showed no evidence of leukocytes, nitrites or hematuria. Venous blood gas within normal limits. MEDICAL DECISION MAKING: This is a 31-year-old male who presents with diarrhea 4 days and left knee pain. Vital signs were reviewed. Patient is afebrile. Patient is not hypoxic. Patient is not toxic or ill-appearing. I consulted with my supervising physician Dr. Mir. Patient's blood work was within normal limits. Patient does not show signs of DKA or HON K. Patient's blood sugar was initially low and was given crackers in the ED. Tolerated well and had improvement in symptoms. Patient still continues to have pain after Toradol therefore Dilaudid was ordered. Patient states that he has gotten Dilaudid in the past at [facility] which helps with his symptoms. Patient had improvement in symptoms after Dilaudid was given. Patient's knee pain shows a possible nondisplaced patella fracture with large joint effusion. My supervising physician Dr. Barton reviewed imaging studies, laboratory studies and agrees with my medical decision making and discharge plans. Low suspicion for ACS, AAA , perforated ulcer, bowel obstruction, cholecystitis, choledocholithiasis, cholangitis, pancreatitis, hepatic abscess, appendicitis, diverticulitis, gastroenteritis, hepatitis, peptic ulcer disease, HELLP syndrome. Patient does not show signs of dehydration. DISCHARGE: At this time, patient is stable for discharge and outpatient management with no new complaints during the ER course. Patient was sent home with [place] and Pedialyte to follow-up with orthopedics in 1-2 days. Patient was given a copy of his imaging report.. Patient will be discharged home with instructions to recheck for new or worsening symptoms such as fever, nausea, weakness, LOC and to follow up with primary care in the next 1-2 days. Patient was advised to return to the ER for any new or worsening symptoms. Plan was discussed and patient and/or family understands and agrees. Home instructions were given. Departure Diagnosis: Primary Impression: Diarrhea Diarrhea type: unspecified type Qualified Code: R19.7 - Diarrhea, unspecified type Additional Impression: Patella fracture Encounter type: initial encounter Fracture type: closed Fracture morphology : unspecified fracture morphology Fracture alignment: nondisplaced Laterality: left Qualified Code: S82.002A - Closed nondisplaced fracture of left patella, unspecified fracture morphology, initial encounter Condition: Stable Patient Instructions: Treating Diarrhea, Patella Fracture Referrals: [facility] YOU HAVE RECEIVED A MEDICAL SCREENING EXAM AND THE RESULTS INDICATE THAT YOU DO NOT HAVE A CONDITION THAT REQUIRES URGENT TREATMENT IN THE EMERGENCY DEPARTMENT. FURTHER EVALUATION AND TREATMENT OF YOUR CONDITION CAN WAIT UNTIL YOU ARE SEEN IN YOUR DOCTORS OFFICE WITHIN THE NEXT 1-2 DAYS. IT IS YOUR RESPONSIBILITY TO MAKE AN APPOINTMENT FOR FOLOW-UP CARE. IF YOU HAVE A PRIMARY DOCTOR --you should call your primary doctor and schedule and appointment IF YOU DO NOT HAVE A PRIMARY DOCTOR YOU CAN CALL OUR PHYSICIAN REFERRAL HOTLINE AT . IF YOU CAN NOT AFFORD TO SEE A PHYSICIAN YOU CAN CHOSE FROM THE FOLLOWING [facility] INSTITUTIONS: [facility] [address] [place] [address] [facility] [address] [place] [address] [facility] [address] [place] [address] [facility] Urgent Care 7 a.m.- 11 p.m. Every Day of the Week NO APPOINTMENT OR AUTHORIZATION NEEDED SO [facility] Hours: Mon-Fri 9:00 AM - 5:00 PM Additional Instructions: SIGUE CON ORTOPEDISTA Llame al doctor MAANA y naomi andry NAZANIN PARA DENTRO DE 1-2 VASQUEZ.Dgale a la secretaria que nosotros le instruimos hacer esta nazanin.Avise o llame si aly condicin se empeora antes de la nazanin. Regresa aqui si peor o no mejor. MIRTA PITT PA-C Nov 08, 2016 16:00
== END 2016-11-08 15:57 | disposition home or self-care (01) ==
LOC: FTE 11:47
DX: R19.7 Diarrhea, unspecified (principal); S82.002A Unspecified fracture of left patella, initial encounter for closed fracture; E11.9 Type 2 diabetes mellitus without complications; W22.8XXA Striking against or struck by other objects, initial encounter; Y92.9 Unspecified place or not applicable; Z79.4 Long term (current) use of insulin; Z79.84 Long term (current) use of oral hypoglycemic drugs
CPT/HCPCS: 36415; 73562; 80053; 81001; 82803; 82962; 83690; 85025; 96374; 96375; J1170; J1885; J7030; Z7502

== ENCOUNTER 2017-04-29 00:10 | Inpatient (IN) | END 2017-04-29 18:45 | disposition home or self-care (01) | DRG 871 ==

== ENCOUNTER 2017-06-25 10:49 | Emergency (ER) | END 2017-06-25 14:15 | disposition home or self-care (01) ==

== ENCOUNTER 2017-08-26 12:43 | Inpatient (IN) | END 2017-09-02 14:25 | disposition home or self-care (01) | DRG 871 ==

== ENCOUNTER 2018-03-24 08:29 | Emergency (ER) | END 2018-03-24 14:32 | disposition home or self-care (01) ==

== ENCOUNTER 2018-06-08 09:35 | Emergency (ER) | payer OTHER ==
[~2018-06-08] VITALS: Ht 180.3 cm; Wt 61.6 kg
[~2018-06-08 09:35] MED LIST changes: +AMOX1TAB10 PO; -GABA100C14 PO; +HYDR-3980 PO; -INSU100C SQ; +INSU200I SQ; -LINA5TAB PO; -TAMS0.4C2 PO
[2018-06-08 09:41] VITALS: Ht 180.3 cm; Wt 61.6 kg
[2018-06-08] MEDS ORDERED: IBUPROFEN 800 MG TAB PO ONE (10:30)
[2018-06-08] MEDS ORDERED: IBUP-1542 PO (11:24)
[2018-06-08 11:40] VITALS: BP 122/67; PULSE 96; RESP 19
--- NOTE | 2018-06-08 12:07 | ERD ---
ER Documentation Chief Complaint Chief Complaint bodyaches, goodrich, cough/congestion x 2 days HPI Patient is a 32-year-old male with diabetes who presents with body aches. He has phlegm in his nose and congestion. He felt chills and subjective fevers last night but did not take his temperature. He felt like he was sweaty. He did get a flu shot this year. He tried TheraFlu. ROS All systems reviewed and are negative except as per history of present illness. Medications Home Meds Active Scripts Ibuprofen* (Motrin*) 600 Mg Tab, 600 MG PO Q6H PRN for PAIN AND OR ELEVATED TEMP, #30 TAB Prov:ASIF RAMSEY MD 06/08/18 Reported Medications Insulin Glargine* (Lantus*) 100 Unit/Ml Soln, 16 UNIT SC QHS, #1 VIAL 08/26/17 Insulin Lispro (Humalog Kwikpen) 200 Unit/1 Ml Insuln.pen, 6 UNIT SQ AC MEALS, EA 04/26/17 Discontinued Scripts Amoxicillin/Potassium Clav (Amox-Clav 875-125 mg Tablet) 875-125 mg Tab, 1 TAB PO BID for 7 Days, #14 TAB Prov:GLENDY CARLSON MD 03/24/18 Hydrocodone/Acetaminophen ([place] 10-325 Tablet) 1 Each Tablet, 1 TAB PO Q6H PRN for PAIN, #20 TAB Prov:GLENDY CARLSON MD 03/24/18 Allergies Allergies: Coded Allergies: morphine (Verified Allergy, Severe, redness/itchiness, 06/08/18) PMhx/Soc History of Surgery: Yes (stem cell implant 2011, portacath (was removed)) Anesthesia Reaction: No Hx Neurological Disorder: No Hx Respiratory Disorders: No Hx Cardiac Disorders: No Hx Psychiatric Problems: No Hx Miscellaneous Medical Probl: Yes (LEUKEMIA, DM) Hx Alcohol Use: No Hx Substance Use: No Hx Tobacco Use: No Smoking Status: Never smoker FmHx Family History: diabetes Physical Exam Vitals Vital Signs Date Temp Pulse Resp B/P (MAP) Pulse Ox O2 O2 Flow FiO2 Time Delivery Rate 06/08/18 98.3 96 19 122/67 99 11:40 (85) 06/08/18 98.1 101 18 130/84 100 09:41 (99) Physical Exam Const: No acute distress Head: Atraumatic Eyes: Normal Conjunctiva ENT: Normal External Ears, Nose and Mouth. Neck: Full range of motion. No meningismus. Resp: Clear to auscultation bilaterally Cardio: Regular rate and rhythm, no murmurs Abd: Soft, non tender, non distended. Normal bowel sounds Skin: No petechiae or rashes Back: No midline or flank tenderness Ext: No cyanosis, or edema Neur: Awake and alert Psych: Normal Mood and Affect Results 24 hrs Current Medications Medications Dose Sig/Brianna Start Time Status Last (Trade) Ordered Route PRN Stop Time Admin Dose Reason Admin Ibuprofen 800 mg ONCE ONCE 06/08/18 DC 06/08/18 (Motrin) PO 10:30 10:18 06/08/18 10:31 Procedures/MDM Chest x-ray read by radiology as negative. Flu swab negative. Patient is a 32-year-old male who presents with symptoms consistent with an upper respiratory infection. I believe he likely has a viral syndrome. Chest x-ray was negative for pneumonia or pneumothorax. Flu swab was negative for flu. At this point I believe outpatient management is appropriate. The patient was given ibuprofen for symptom medic relief. He can return for any worsening symptoms. I believe outpatient management is appropriate but the patient should have close follow-up with his primary doctor within 24-48 hours. He can return sooner for any worsening symptoms. Departure Diagnosis: Primary Impression: URI (upper respiratory infection) URI type: unspecified URI Qualified Codes: J06.9 - Acute upper respiratory infection, unspecified Condition: Fair Patient Instructions: Uri, Viral, No Abx (Adult) Referrals: Dr. Dobbs Additional Instructions: Call your primary care doctor TOMORROW for an appointment during the next 1-2 days.See the doctor sooner or return here if your condition worsens before your appointment time. ASIF RAMSEY MD Jun 08, 2018 12:07
== END 2018-06-08 11:41 | disposition home or self-care (01) ==
LOC: E/R 09:35
DX: J06.9 Acute upper respiratory infection, unspecified (principal); E11.9 Type 2 diabetes mellitus without complications; Z79.4 Long term (current) use of insulin; Z85.6 Personal history of leukemia
CPT/HCPCS: 71045; 87400; Z7502; Z7610

== ENCOUNTER 2018-07-07 09:57 | Emergency (ER) | payer OTHER ==
[~2018-07-07] VITALS: Wt 62.0 kg
[~2018-07-07 09:57] MED LIST changes: -AMOX1TAB10 PO; -HYDR-3980 PO; +IBUP-1542 PO
[2018-07-07 10:04] VITALS: BP 131/74; PULSE 90; RESP 18
[2018-07-07] MEDS ORDERED: HYDROCODONE/APAP (5/325) TAB PO ONE (11:00)
--- NOTE | 2018-07-07 11:21 | ERD ---
ER Documentation Chief Complaint Chief Complaint BACK PAIN RAD LEG HPI 32-year-old male with a history of leukemia with stem cell transplant and type 2 diabetes presents with complaint of dysuria for the past week as well as episodes of chills with shaking nests since Thursday, and left leg pain which has been a chronic intermittent condition since 2011 but which is worsened since Thursday. He denies hematuria but states that he has had increased frequency in urination. He states that he has been checking his blood sugar levels daily and they have been within normal limits, last time he checked was this morning. The leg pain he describes as radiating down from his buttocks to his left leg. The pain is made worse with movement. He states that ibuprofen does not seem to help. Regarding the chills, he states that he has been having them in the evenings but he denies any fevers. Is currently being followed at [facility] for his leukemia but he is says he is being transferred to a different oncologist at [place]. He denies incontinence, saddle numbness, or leg weakness. He denies flank pain back pain nausea vomiting diarrhea, cough, chest pain, headache, dizziness, polyphagia or polydipsia. ROS All systems reviewed and are negative except as per history of present illness. Medications Home Meds Active Scripts Ibuprofen* (Motrin*) 600 Mg Tab, 600 MG PO Q6H PRN for PAIN AND OR ELEVATED TEMP, #30 TAB Prov:ASIF RAMSEY MD 06/08/18 Reported Medications Insulin Glargine* (Lantus*) 100 Unit/Ml Soln, 16 UNIT SC QHS, #1 VIAL 08/26/17 Insulin Lispro (Humalog Kwikpen) 200 Unit/1 Ml Insuln.pen, 6 UNIT SQ AC MEALS, EA 04/26/17 Allergies Allergies: Coded Allergies: morphine (Verified Allergy, Severe, redness/itchiness, 07/07/18) PMhx/Soc History of Surgery: Yes (stem cell implant 2011, portacath (was removed)) Anesthesia Reaction: No Hx Neurological Disorder: No Hx Respiratory Disorders: No Hx Cardiac Disorders: No Hx Psychiatric Problems: No Hx Miscellaneous Medical Probl: Yes (LEUKEMIA, DM) Hx Alcohol Use: No Hx Substance Use: No Hx Tobacco Use: No Smoking Status: Never smoker FmHx Family History: No diabetes, No coronary disease, No other Physical Exam Vitals Vital Signs Date Temp Pulse Resp B/P (MAP) Pulse Ox O2 O2 Flow FiO2 Time Delivery Rate 07/07/18 97.8 90 18 131/74 99 10:04 (93) Physical Exam Const: No acute distress Head: Atraumatic Eyes: Normal Conjunctiva ENT: Normal External Ears, Nose and Mouth. Neck: Full range of motion. No meningismus. Resp: Clear to auscultation bilaterally Cardio: Regular rate and rhythm, no murmurs Abd: Soft, non tender, non distended. Normal bowel sounds Skin: No petechiae or rashes Back: Limited flexion. No midline or flank tenderness Ext: Positive straight leg raise. There is no edema, erythema, ecchymosis, or andria deformity noted. Overlying skin is intact. Compartments are soft and warm. There is no pallor or cyanosis. distal pulses, and distal sensation is intact. There is normal cap refill. Neur: Awake and alert Psych: Normal Mood and Affect Result Diagram: 07/07/18 1057 Results 24 hrs Laboratory Tests Test 07/07/18 10:57 07/07/18 10:58 White Blood Count 9.0 10^3/ul Red Blood Count 2.99 10^6/ul Hemoglobin 9.3 g/dl Hematocrit 28.9 % Mean Corpuscular Volume 96.7 fl Mean Corpuscular Hemoglobin 31.1 pg Mean Corpuscular Hemoglobin Concent 32.2 g/dl Red Cell Distribution Width 12.6 % Platelet Count 194 10^3/UL Mean Platelet Volume 9.8 fl Immature Granulocytes % 0.300 % Neutrophils % 68.3 % Lymphocytes % 19.4 % Monocytes % 6.5 % Eosinophils % 5.2 % Basophils % 0.3 % Nucleated Red Blood Cells % 0.0 /100WBC Immature Granulocytes # 0.030 10^3/ul Neutrophils # 6.2 10^3/ul Lymphocytes # 1.8 10^3/ul Monocytes # 0.6 10^3/ul Eosinophils # 0.5 10^3/ul Basophils # 0.0 10^3/ul Nucleated Red Blood Cells # 0.0 10^3/ul Urine Color YELLOW Urine Clarity TURBID Urine pH 5.0 Urine Specific [place] 1.012 Urine Ketones NEGATIVE mg/dL Urine Nitrite NEGATIVE mg/dL Urine Bilirubin NEGATIVE mg/dL Urine Urobilinogen NEGATIVE mg/dL Urine Leukocyte Esterase 3+ Orly/ul Urine Microscopic RBC 19 /HPF Urine Microscopic WBC > 182 /HPF Urine Bacteria MANY /HPF Urine Mucus FEW /HPF Urine Hemoglobin 1+ mg/dL Urine Glucose NEGATIVE mg/dL Urine Total Protein 2+ mg/dl Current Medications Medications Dose Sig/Brianna Start Time Status Last (Trade) Ordered Route PRN Stop Time Admin Dose Reason Admin 1 tab ONCE ONCE 07/07/18 DC 07/07/18 Acetaminophen PO 11:00 11:08 / 07/07/18 11:01 Hydrocodone Bitart ([place] (5/325)) Procedures/MDM 32-year-old male with a history of leukemia with stem cell transplant and type 2 diabetes presents with complaint of dysuria for the past week as well as episodes of chills with shaking nests since Thursday, and left leg pain which has been a chronic intermittent condition since 2011 but which is worsened since Thursday. He denies hematuria but states that he has had increased frequency in urination. He states that he has been checking his blood sugar levels daily and they have been within normal limits, last time he checked was this morning. The leg pain he describes as radiating down from his buttocks to his left leg. The pain is made worse with movement. He states that ibuprofen does not seem to help. Regarding the chills, he states that he has been having them in the evenings but he denies any fevers. Is currently being followed at [facility] for his leukemia but he is says he is being transferred to a different oncologist at [place]. He denies incontinence, saddle numbness, or leg weakness. He denies flank pain back pain nausea vomiting diarrhea, cough, chest pain, headache, dizziness, polyphagia or polydipsia. ER attending note: Briefly, this is a 32-year-old with a history of leukemia in remission status post stem cell transplant. He also has type 2 diabetes. He has chronic leg pain which is his main complaint today. He has a secondary complaint of questionable shaking and questionable chills. Diagnostic evaluation shows evidence of urinary tract infection, but no evidence of high risk sepsis. Patient is afebrile at this time with a normal white blood cell count. He looks stable and as per my conversation with the patient, he is comfortable with outpatient antibiotics at this time. BERNARDINO MONSALVE Jul 07, 2018 11:21 BEN MCKEE Jul 07, 2018 12:51
[2018-07-07] MEDS ORDERED: HYDR-4011 PO (12:55)
[2018-07-07] MEDS ORDERED: CEPH-443 PO (12:55)
[2018-07-07] MEDS ORDERED: IBUP-1561 PO (12:55)
== END 2018-07-07 13:07 | disposition home or self-care (01) ==
LOC: FTE 09:57
DX: R30.0 Dysuria (principal); E11.9 Type 2 diabetes mellitus without complications; Z79.4 Long term (current) use of insulin; Z85.6 Personal history of leukemia
CPT/HCPCS: 36415; 71045; 81001; 85025; 87086; Z7502; Z7610

== ENCOUNTER 2018-12-19 10:15 | Emergency (ER) | payer OTHER ==
[~2018-12-19] VITALS: Ht 180.3 cm; Wt 66.5 kg
[~2018-12-19 10:15] MED LIST changes: +CEPH-443 PO; +HYDR-4011 PO; +IBUP-1561 PO
[2018-12-19 10:17] VITALS: Ht 180.3 cm; Wt 66.5 kg
[2018-12-19 12:45] VITALS: BP 148/90; PULSE 91; RESP 18
== END 2018-12-19 12:54 | disposition home or self-care (01) ==
LOC: E/R 10:15
DX: D64.9 Anemia, unspecified (principal); E11.9 Type 2 diabetes mellitus without complications; Z79.4 Long term (current) use of insulin
CPT/HCPCS: 80053; 85025; Z7502; 99283